=== PATIENT | male | born 1975 | race Caucasian/White ===

== ENCOUNTER 2016-05-05 21:46 | Emergency (ER) | payer OTHER, MEDICAID ==
[~2016-05-05] VITALS: Ht 180.3 cm; Wt 123.0 kg
[~2016-05-05 21:46] MED LIST: CLON1TAB PO; IBUP-232 PO; MOBI15TA PO; MORP1TAB25 PO; PERC10TA27 PO
[2016-05-05 21:50] VITALS: BP 163/87; PULSE 90; RESP 20; TEMP 98.2; O2SAT 98
[2016-05-06 03:24] VITALS: RESP 20; O2SAT 97
[2016-05-06] MEDS ORDERED: SODIUM CHLOR 0.9% 1000 ML INJ 1,000 ML IV ONE (03:30)
[2016-05-06] MEDS ORDERED: ONDANSETRON HCL 4 MG/2 ML VIAL IV PUSH ONE (03:30)
[2016-05-06] MEDS ORDERED: SODIUM CHLORIDE 0.9% FLUSH 5 ML FLUSH IVF PRN (03:30)
[2016-05-06] MEDS ORDERED: KETOROLAC TROMETHAMINE 30 MG/ML (IVP) VIAL IV PUSH ONE (03:30)
--- NOTE | 2016-05-06 03:36 | PD ---
HPI Chief Complaint: Complaint Time Seen by Provider: 03:06 Travel History International Travel<30 days: No Contact w/Intl Traveler<30days: No Traveled to known affect area: No History of Present Illness HPI 41yo M with PMH of left orchiectomy and neurolysis 01/23/16, neprholithiasis presents to the ED with c/o left flank pain and radiates to left testicle today. +Nausea. +Hematuria. +Dysuria. Pt also with chronic left testicular pain since the surgery and has been here multiple times for it. Last ED visit was 04/10/16 and had unchanged scrotal ultrasound. Pt states he has morphine at home but did not take today because he was nauseous. States the left testicular pain has not change. Pt has an appointment with Dr. Bee this morning at 9am. PFSH Past Medical History Hx Anticoagulant Therapy: No Arthritis: No Asthma: No Autoimmune Disease: No Anxiety: No Depression: No Heart Rhythm Problems: No Cancer: No Cardiovascular Problems: No High Cholesterol: No Chemotherapy: No Chest Pain: No Congestive Heart Failure: No COPD: No Cerebrovascular Accident: No Diminished Hearing: No Endocrine: No GERD: No Genitourinary: No Headaches: No Hepatitis: No Hiatal Hernia: No Hypertension: Yes ( ) Immune Disorder: Yes Inguinal Hernia: Yes Implanted Vascular Access Dvce: No Kidney Stones: Yes Musculoskeletal: Yes (CHRONIC BACK PAIN, hip problems) Neurologic: Yes (neuropathy) Psychiatric: Yes (anxiety) Reproductive: No Respiratory: Yes (sleep apnea ) Immunizations Current: Yes Migraines: No Pancreatitis: Yes Radiation Therapy: No Renal Failure: No Seizures: No Shingles: Yes Sickle Cell Disease: No Sleep Apnea: Yes (NO CPAP USE) Thyroid Disease: No Ulcer: No Past Surgical History Abdominal Surgery: Yes (HERNIA REPAIR) AICD: No Arteriovenous Shunt: No Body Medical Devices: NONE Cardiac Surgery: No Ear Surgery: No Endocrine Surgery: No Eye Surgery: No Genitourinary Surgery: No Gynecologic Surgery: No Insulin Pump: No Joint Replacement: No Neurologic Surgery: Yes (spine surgery) Oral Surgery: No Pacemaker: No Thoracic Surgery: No Other Surgery: Yes (1 testical removed ) Social History Alcohol Use: No Tobacco Use: No Substance Use: No Allergies-Medications (Allergen,Severity, Reaction): Coded Allergies: Contrast Media (Verified Allergy, Mild, Rash, 05/05/16) Reported Meds & Prescriptions Reported Meds & Active Scripts Active Mobic (Meloxicam) 15 Mg Tab 15 Mg PO DAILY Reported Morphine ER (Morphine Sulfate) 30 Mg Tab 30 Mg PO BID Percocet (Oxycodone-Acetaminophen) 10-325 mg Tab 1 Tab PO Q4H PRN Ibuprofen 600 Mg Tab 600 Mg PO QID Clonazepam 1 Mg Tab 1 Mg PO TID Review of Systems Except as stated in HPI: all other systems reviewed are Neg Physical Exam Narrative GENERAL: 41yo M in mild distress. SKIN: Warm and dry. HEAD: Atraumatic. Normocephalic. EYES: Pupils equal and round. No scleral icterus. No injection or drainage. ENT: No nasal bleeding or discharge. Mucous membranes pink and moist. NECK: Trachea midline. No JVD. CARDIOVASCULAR: Regular rate and rhythm. No murmur appreciated. RESPIRATORY: No accessory muscle use. Clear to auscultation. Breath sounds equal bilaterally. GASTROINTESTINAL: Abdomen soft, non-tender, nondistended. No rebound tenderness or guarding. BACK: No midline ttp thoracic or lumbar spine. +TTP right paraspinal lumbar spine. : No signs of infection. +TTP left testicle with light touch. MUSCULOSKELETAL: No obvious deformities. No clubbing. No cyanosis. No edema. NEUROLOGICAL: Awake and alert. No obvious cranial nerve deficits. Motor grossly within normal limits. Normal speech. PSYCHIATRIC: Appropriate mood and affect; insight and judgment normal. Data Data Last Documented VS Vital Signs Date Time Temp Pulse Resp B/P Pulse Ox O2 Delivery O2 Flow Rate FiO2 05/06/16 03:24 20 97 05/06/16 03:24 77 05/05/16 21:50 98.2 163/87 Room Air Orders Basic Metabolic Panel (Bmp) (05/06/16 03:16) Complete Blood Count With Diff (05/06/16 03:16) Prothrombin Time / Inr (Pt) (05/06/16 03:16) Act Partial Throm Time (Ptt) (05/06/16 03:16) Urinalysis - C+S If Indicated (05/06/16 03:16) Ct Abd/Pel W/O Iv Contrast (05/06/16 03:16) Iv Access Insert/Monitor (05/06/16 03:16) Ecg Monitoring (05/06/16 03:16) Oximetry (05/06/16 03:16) Sodium Chloride 0.9% Flush (Ns Flush) (05/06/16 03:30) Ketorolac Inj (Toradol Inj) (05/06/16 03:30) Ondansetron Inj (Zofran Inj) (05/06/16 03:30) Sodium Chlor 0.9% 1000 Ml Inj (Ns 1000 M (05/06/16 03:30) Morphine Inj (Morphine Inj) (05/06/16 04:30) Labs Laboratory Tests Test 05/06/16 05/06/16 03:35 04:40 White Blood Count 9.3 TH/MM3 Red Blood Count 5.27 MIL/MM3 Hemoglobin 14.4 GM/DL Hematocrit 41.9 % Mean Corpuscular Volume 79.4 FL Mean Corpuscular Hemoglobin 27.3 PG Mean Corpuscular Hemoglobin 34.4 % Concent Red Cell Distribution Width 13.7 % Platelet Count 237 TH/MM3 Mean Platelet Volume 8.1 FL Neutrophils (%) (Auto) 66.8 % Lymphocytes (%) (Auto) 24.5 % Monocytes (%) (Auto) 6.8 % Eosinophils (%) (Auto) 1.2 % Basophils (%) (Auto) 0.7 % Neutrophils # (Auto) 6.2 TH/MM3 Lymphocytes # (Auto) 2.3 TH/MM3 Monocytes # (Auto) 0.6 TH/MM3 Eosinophils # (Auto) 0.1 TH/MM3 Basophils # (Auto) 0.1 TH/MM3 CBC Comment DIFF FINAL Differential Comment Prothrombin Time 10.9 SEC Prothromb Time International 1.0 RATIO Ratio Activated Partial 27.0 SEC Thromboplast Time Sodium Level 138 MEQ/L Potassium Level 5.2 MEQ/L Chloride Level 105 MEQ/L Carbon Dioxide Level 24.0 MEQ/L Anion Gap 9 MEQ/L Blood Urea Nitrogen 13 MG/DL Creatinine 0.91 MG/DL Estimat Glomerular Filtration 92 ML/MIN Rate Random Glucose 164 MG/DL Calcium Level 9.0 MG/DL Urine Color DARK-BROWN Urine Turbidity HAZY Urine pH 5.0 Urine Specific [place] 1.023 Urine Protein NEG mg/dL Urine Glucose (UA) NEG mg/dL Urine Ketones NEG mg/dL Urine Occult Blood NEG Urine Nitrite POS Urine Bilirubin NEG Urine Urobilinogen 2.0 MG/DL Urine Leukocyte Esterase NEG Urine RBC LESS THAN 1 /hpf Urine WBC 1 /hpf Urine Squamous Epithelial <1 /hpf Cells Urine Hyaline Casts 3 /lpf Urine Mucus FEW /lpf Microscopic Urinalysis Comment CULT NOT INDICATED MDM Medical Decision Making Medical Screen Exam Complete: Yes Emergency Medical Condition: Yes Differential Diagnosis Nephrolithiasis vs. pyelonephritis vs. chronic testicular pain Narrative Course 41yo M here with left flank pain. Pt has chronic left testicular pain that has been unchanged. Labs reviewed, no leukocytosis. K: 5.2 but slightly hemolyzed. UA showed positive nitrite, will give few days of antibiotics. CTa/ p showed postsurgical change that has been unchanged. VS stable. Pt given toradol 30mg IV, zofran and NS IVF which didnt help with pain so morphine 6mg IV was given which improved pain. Pt has appointment with Dr. Bee at 9am today. Pt to follow up with him as outpatient. Diagnosis Primary Impression: UTI (urinary tract infection) Qualified Code: N39.0 - Urinary tract infection without hematuria, site unspecified Patient Instructions: General Instructions Departure Forms: Tests/Procedures Additional Instructions: Please follow up with Dr. Bee at your appointment today. Return to the ED if symptoms worsen. Med/Other Pt SpecificInfo: Prescription(s) given Scripts Ibuprofen 600 Mg [id number] Mg PO Q8HR PRN (PAIN) #20 TAB Ref 0 Prov:Pinky Diallo DO 05/06/16 Ciprofloxacin 500 Mg [id number] Mg PO BID 7 Days Ref 0 Prov:Pinky Diallo DO 05/06/16 Disposition: 01 DISCHARGE HOME Condition: Stable Pinky Diallo DO May 06, 2016 03:35
[2016-05-06 03:56] LABS: AUTOMATED NEUTROPHIL # 6.2 TH/MM3 (1.8-7.7); BASOPHIL # 0.1 TH/MM3 (0-0.2); BASOPHIL % 0.7 % (0.0-2.0); EOSINOPHIL # 0.1 TH/MM3 (0-0.4); EOSINOPHIL % 1.2 % (0.0-4.0); HEMATOCRIT 41.9 % (39.0-51.0); HEMO FLAGS DIFF FINAL; LYMPH % 24.5 % (9.0-44.0); LYMPHOCYTE # 2.3 TH/MM3 (1.0-4.8); MEAN CELL VOLUME 79.4 FL (80.0-100.0); MEAN CORPUSCULAR HEMOGLOBIN 27.3 PG (27.0-34.0); MEAN CORPUSCULAR HGB CONC 34.4 % (32.0-36.0); MONO % 6.8 % (0.0-8.0); NEUT % 66.8 % (16.0-70.0); PLATELET COUNT 237 TH/MM3 (150-450); RED BLOOD COUNT 5.27 MIL/MM3 (4.50-5.90); RED CELL DISTRIBUTION WIDTH 13.7 % (11.6-17.2); WHITE BLOOD COUNT 9.3 TH/MM3 (4.0-11.0)
[2016-05-06 04:06] LABS: PROTHROMBIN TIME - PATIENT 10.9 SEC (9.8-11.6)
[2016-05-06 04:24] LABS: POTASSIUM 5.2 MEQ/L (3.5-5.1)
[2016-05-06] MEDS ORDERED: MORPHINE SULFATE 8 MG/ML INJ IV PUSH ONE (04:30)
[2016-05-06 05:49] LABS: BLOOD, URINE NEG (NEG); GLUCOSE,URINE NEG (NEG); HYALINE CAST, URINE 3 /lpf (RARE); KETONE, URINE NEG (NEG); MUCUS URINE FEW /lpf (OCC); SQUAMOUS EPITHELIAL CELL URINE <1 /hpf (0-5)
[2016-05-06 05:51] LABS: COMMENT (UR) CULT NOT INDICATED; CULTURE IF INDICATED CULT NOT INDICATED; NITRITE,URINE POS (NEG); URINE COLOR DARK-BROWN (YELLW/STRAW)
--- NOTE | 2016-05-06 05:52 | RADRPT ---
EXAM DATE/TIME: 05/06/2016 05:03 [facility] COMPARISON: CT ABDOMEN & PELVIS W/O CONTRAST, February 04, 2016, 13:09. INDICATIONS : Left flank and groin pain. ORAL CONTRAST: No oral contrast ingested. RADIATION DOSE: 30.46 CTDIvol (mGy) MEDICAL HISTORY : Hypertension. Renal calculi. Pancreatitis. SURGICAL HISTORY : Inguinal hernia repair. Left orchiectomy ENCOUNTER: Initial ACUITY: 4 - 6 months PAIN SCALE: 10/10 LOCATION: Left flank TECHNIQUE: Volumetric scanning of the abdomen and pelvis was performed. Using automated exposure control and ad justment of the mA and/or kV according to patient size, radiation dose was kept as low as reasonably achievable to obtain optimal diagnostic quality images. FINDINGS: LOWER LUNGS: The visualized lower lungs are clear. LIVER: Decrease attenuation without lesion. There is no dilation of the biliary tree. No calcified gallsto harsh. SPLEEN: Normal size without lesion. PANCREAS: Within normal limits. KIDNEYS: Normal in size and shape. There is no mass or hydronephrosis. Punctate nonobstructing left renal terri culus measures 2-3 mm. ADRENAL GLANDS: Within normal limits. VASCULAR: There is no aortic aneurysm. BOWEL/MESENTERY: Diverticulosis of colon no diverticulitis. There is no free intraperitoneal air or fluid. ABDOMINAL WALL: Within normal limits. RETROPERITONEUM: There is no lymphadenopathy. BLADDER: No wall thickening or mass. REPRODUCTIVE: Within normal limits. INGUINAL: There is stranding in left inguinal canal. Anterior pelvis adjacent to the left inguinal canal is a small fluid collection again seen measuring 2.3 x 3.6 cm, no significant change.. MUSCULOSKELETAL: Within normal limits for patient age. CONCLUSION: 1. Stranding and postsurgical changes left inguinal canal. Small fluid collection left pelvis adjacen t to inguinal canal measures 2.3 x 2.6 cm as seen on previous study not significantly changed. This c ould be related to seroma versus less likely small abscess. 2. Diverticulosis without diverticulitis. 3. Severe fatty infiltration of the liver. 4. Punctate nonobstructing left renal calculus. Jose Lucas MD on May 06, 2016 at 5:46 Board Certified Radiologist. This report was verified electronically.
[2016-05-06] MEDS ORDERED: CIPR500T2 PO (06:40)
[2016-05-06] MEDS ORDERED: IBUP-232 PO (06:40)
== END 2016-05-06 07:06 | disposition home or self-care (01) ==
LOC: NEPC 21:46
DX: N50.812 Left testicular pain (principal); N39.0 Urinary tract infection, site not specified; I10 Essential (primary) hypertension; Z40.09 Encounter for prophylactic removal of other organ
CPT/HCPCS: 74176; 80048; 81001; 85025; 85610; 85730; 96361; 96374; 96375; 99284; J1885; J2270; J2405; J7030

== ENCOUNTER → 2016-09-10 | Outpatient (CLI) | payer OTHER, MEDICAID ==
[~2016-09-10] MED LIST changes: +CIPR500T2 PO
[2016-09-10 10:33] LABS: INDIRECT BILIRUBIN 0.4 MG/DL (0.0-0.8); TOTAL BILIRUBIN ADULT 0.5 MG/DL (0.2-1.0)
== END ==
LOC: CLAB 09:26
PROVIDERS: ATTEND Surgery Trauma Surgery
DX: F11.20 Opioid dependence, uncomplicated (principal)
CPT/HCPCS: 36415; 80076

== ENCOUNTER 2016-11-24 04:09 | Emergency (ER) | payer OTHER, MEDICAID ==
[2016-11-24 04:13] VITALS: BP 184/93; PULSE 106; RESP 20; TEMP 97.4; O2SAT 98
[2016-11-24 04:30] VITALS: RESP 19; O2SAT 98
[2016-11-24] MEDS ORDERED: SODIUM CHLOR 0.9% 1000 ML INJ 1,000 ML IV ONE (04:45)
[2016-11-24] MEDS ORDERED: ONDANSETRON HCL 4 MG/2 ML VIAL IV ONE (04:45)
[2016-11-24] MEDS ORDERED: KETOROLAC TROMETHAMINE 30 MG/ML (IVP) VIAL IV PUSH ONE (04:45)
--- NOTE | 2016-11-24 04:51 | PD ---
HPI Chief Complaint: Flank/Kidney Pain Time Seen by Provider: 04:19 Travel History International Travel<30 days: No Contact w/Intl Traveler<30days: No Traveled to known affect area: No History of Present Illness HPI The patient is a 41 year old male who presents to the [facility] emergency department with a history of right groin pain and penile pain that began at 6PM last night. The pain feels like "shards of glass". It is coming and going. He reports that it feels similar to when he has had kidney stones in the past. He reports that he passed a small kidney stone prior to arrival. He reports that he is followed by for his urologic care. He reports that he does have chronic pain in the left groin related to nerve problems from prior inguinal hernia repairs, however he has had a left triple neurectomy with neural lysis and left orchiectomy with Genny hernia repair on the left side related to this in December 2015. He does however continue to have intermittent pain and is prescribed Percocet for this reportedly by his surgeon, Dr. Bee. The patient reports having burning with urination. He denies having any urinary frequency or urgency. On review of systems, the patient denies any recent fevers, cough, congestion, neck pain, chest pain, shortness of breath, abdominal pain, vomiting, diarrhea,or neurologic symptoms. [facility] Past Medical History Narrative Medical The patient's past medical history is significant for kidney stones, chronic left groin pain. The patient has according to the record a history of diabetes , hypertension, pancreatitis, chronic hip pain, chronic back pain, sleep apnea, however he reports that all of these problems resolved after he lost weight. Hx Anticoagulant Therapy: No Arthritis: No Asthma: No Autoimmune Disease: No Anxiety: No Depression: No Heart Rhythm Problems: No Cancer: No Cardiovascular Problems: No High Cholesterol: No Chemotherapy: No Chest Pain: No Congestive Heart Failure: No COPD: No Cerebrovascular Accident: No Diminished Hearing: No Endocrine: No GERD: No Genitourinary: No Headaches: No Hepatitis: No Hiatal Hernia: No Hypertension: Yes ( ) Immune Disorder: Yes Inguinal Hernia: Yes Implanted Vascular Access Dvce: No Kidney Stones: Yes Medical other: No (PANCREATITIS) Musculoskeletal: Yes (CHRONIC BACK PAIN, hip problems) Neurologic: Yes (neuropathy) Psychiatric: Yes (anxiety) Reproductive: No Respiratory: Yes (sleep apnea ) Immunizations Current: Yes Migraines: No Pancreatitis: Yes Radiation Therapy: No Renal Failure: No Seizures: No Shingles: Yes Sickle Cell Disease: No Sleep Apnea: Yes (NO CPAP USE) Thyroid Disease: No Ulcer: No Tetanus Vaccination: < 5 Years Influenza Vaccination: Yes Past Surgical History Narrative Surgical The patient's past surgical history is significant for 5 hernia repairs, left orchiectomy, back surgery. Abdominal Surgery: Yes (HERNIA REPAIR) AICD: No Arteriovenous Shunt: No Body Medical Devices: NONE Cardiac Surgery: No Ear Surgery: No Endocrine Surgery: No Eye Surgery: No Genitourinary Surgery: No Gynecologic Surgery: No Insulin Pump: No Joint Replacement: No Neurologic Surgery: Yes (spine surgery) Oral Surgery: No Pacemaker: No Thoracic Surgery: No Other Surgery: Yes (1 testical removed ) Social History Alcohol Use: No Tobacco Use: No Substance Use: No Allergies-Medications (Allergen,Severity, Reaction): Coded Allergies: Contrast Media (Verified Allergy, Mild, Rash, 05/05/16) Reported Meds & Prescriptions Reported Meds & Active Scripts Active Ibuprofen 600 Mg Tab 600 Mg PO Q8HR PRN Ciprofloxacin (Ciprofloxacin HCl) 500 Mg Tab 500 Mg PO BID 7 Days Mobic (Meloxicam) 15 Mg Tab 15 Mg PO DAILY Reported Morphine ER (Morphine Sulfate) 30 Mg Tab 30 Mg PO BID Percocet (Oxycodone-Acetaminophen) 10-325 mg Tab 1 Tab PO Q4H PRN Ibuprofen 600 Mg Tab 600 Mg PO QID Clonazepam 1 Mg Tab 1 Mg PO TID Narrative Medication Percocet PRN Review of Systems Except as stated in HPI: all other systems reviewed are Neg General / Constitutional: No: Fever Eyes: No: Visual changes HENT: No: Headaches Cardiovascular: No: Chest Pain or Discomfort Respiratory: No: Shortness of Breath Gastrointestinal: No: Abdominal Pain Genitourinary: Positive: Dysuria Musculoskeletal: No: Pain Skin: No Rash Neurologic: No: Weakness, Focal Abnormalities, Change in Mentation, Slurred Speech, Sensory Disturbance Psychiatric: No: Depression Endocrine: No: Polydipsia Hematologic/Lymphatic: No: Easy Bruising Physical Exam Narrative General: The patient is a well-developed well-nourished male, uncomfortable appearing on arrival, walking around the room, having difficulty sitting still related to pain that radiates into the right testicle. Head and Neck exam: Head is normocephalic atraumatic. Eyes: EOMI, pupils are equal round and reactive to light. Nose: Midline septum with pink mucous membranes Mouth: Dentition unremarkable. Moist mucus membranes. Posterior oropharynx is not erythematous. No tonsillar hypertrophy. Uvula midline. Airway patent. Neck: No palpable lymphadenopathy. No nuchal rigidity. No thyromegaly. Cardiovascular: Regular rate and rhythm without murmurs, gallops, or rubs. No pulse deficit to the extremities. Lungs: Clear to auscultation bilaterally. No wheezes, rhonchi, or rales. Abdomen: Soft, without tenderness to palpation in all 4 quadrants of the abdomen. No guarding, rebound, or rigidity. Negative [place] sign. Extremities: No clubbing, cyanosis, or edema. 2+ pulses in all 4 extremities. Back: No spinous process tenderness to palpation. No costovertebral angle tenderness to palpation. Neurologic Exam: Cranial nerves 2-12 were intact on exam. Strength is 5/5 in all 4 extremities. No sensory deficits noted. No dysdiadochokinesis. Good finger to nose and Heel to gonzalez bilaterally. Skin Exam: No rash noted. Intact skin that is warm and dry. Genital exam: The patient is a circumcised male. No genital lesions or rash noted. No scrotal pain or swelling on examination.No palpable testicle masses or tenderness on palpation. No palpable hernia. Data Data Last Documented VS Vital Signs Date Time Temp Pulse Resp B/P Pulse Ox O2 Delivery O2 Flow Rate FiO2 11/24/16 04:30 19 98 Room Air 11/24/16 04:13 97.4 106 184/93 Orders Complete Blood Count With Diff (11/24/16 04:33) Comprehensive Metabolic Panel (11/24/16 04:33) C-Reactive Protein (Crp) (11/24/16 04:33) Lipase (11/24/16 04:33) Urinalysis - C+S If Indicated (11/24/16 04:33) Iv Access Insert/Monitor (11/24/16 04:33) Ecg Monitoring (11/24/16 04:33) Oximetry (11/24/16 04:33) Sodium Chlor 0.9% 1000 Ml Inj (Ns 1000 M (11/24/16 04:45) Ondansetron Inj (Zofran Inj) (11/24/16 04:45) Ketorolac Inj (Toradol Inj) (11/24/16 04:45) Ct Abd/Pel W/O Iv Contrast (11/24/16 04:51) Hydromorphone Pf Inj (Dilaudid Pf Inj) (11/24/16 05:00) Hydromorphone Pf Inj (Dilaudid Pf Inj) (11/24/16 06:00) Phenazopyridine (Pyridium) (11/24/16 06:00) Sodium Chlorid 0.9% 500 Ml Inj (Ns 500 M (11/24/16 06:00) Labs Laboratory Tests Test 11/24/16 04:30 White Blood Count 13.1 TH/MM3 Red Blood Count 5.66 MIL/MM3 Hemoglobin 16.6 GM/DL Hematocrit 46.4 % Mean Corpuscular Volume 82.0 FL Mean Corpuscular Hemoglobin 29.3 PG Mean Corpuscular Hemoglobin 35.7 % Concent Red Cell Distribution Width 13.8 % Platelet Count 249 TH/MM3 Mean Platelet Volume 8.1 FL Neutrophils (%) (Auto) 61.5 % Lymphocytes (%) (Auto) 29.5 % Monocytes (%) (Auto) 7.3 % Eosinophils (%) (Auto) 1.0 % Basophils (%) (Auto) 0.7 % Neutrophils # (Auto) 8.1 TH/MM3 Lymphocytes # (Auto) 3.9 TH/MM3 Monocytes # (Auto) 1.0 TH/MM3 Eosinophils # (Auto) 0.1 TH/MM3 Basophils # (Auto) 0.1 TH/MM3 CBC Comment DIFF FINAL Differential Comment Urine Color YELLOW Urine Turbidity CLEAR Urine pH 5.0 Urine Specific [place] 1.022 Urine Protein TRACE mg/dL Urine Glucose (UA) 70 mg/dL Urine Ketones TRACE mg/dL Urine Occult Blood LARGE Urine Nitrite NEG Urine Bilirubin NEG Urine Urobilinogen LESS THAN 2.0 MG/DL Urine Leukocyte Esterase NEG Urine RBC 154 /hpf Urine WBC 2 /hpf Urine Squamous Epithelial <1 /hpf Cells Urine Bacteria RARE /hpf Urine Mucus FEW /lpf Microscopic Urinalysis Comment CULT NOT INDICATED Sodium Level 136 MEQ/L Potassium Level 4.1 MEQ/L Chloride Level 101 MEQ/L Carbon Dioxide Level 24.3 MEQ/L Anion Gap 11 MEQ/L Blood Urea Nitrogen 15 MG/DL Creatinine 1.12 MG/DL Estimat Glomerular Filtration 73 ML/MIN Rate Random Glucose 224 MG/DL Calcium Level 9.2 MG/DL Total Bilirubin 0.5 MG/DL Aspartate Amino Transf 40 U/L (AST/SGOT) Alanine Aminotransferase 46 U/L (ALT/SGPT) Alkaline Phosphatase 90 U/L C-Reactive Protein 0.82 MG/DL Total Protein 8.4 GM/DL Albumin 3.9 GM/DL Lipase 209 U/L [facility] Medical Decision Making Medical Screen Exam Complete: Yes Emergency Medical Condition: Yes Medical Record Reviewed: Yes Differential Diagnosis Last Impressions Abdomen/Pelvis CT 11/24/16 0451 Signed Impressions: Service Date/Time: Thursday, November 24, 2016 05:23 - CONCLUSION: 1. The right kidney is unremarkable appearance with no renal calculi or obstruction. Moderate diverticulosis with no inflammatory change or obstruction. 2. Severe hepatic steatosis is again noted. 3. 2 tiny nonobstructing 1 mm left renal calculi are now noted. Declan Moreland MD Narrative Course During the course of the patients emergency department visit, the patients history, examination, and differential diagnosis were reviewed with the patient. The patient had IV access obtained and blood work sent for analysis. The patient was placed on a cardiac rehabilitation program director with oximetry and blood pressure monitoring. The patient was initially provided normal saline 1 L IV fluid bolus, Toradol 15 mg IV, Zofran 4 mg IV. The patient continued to have a significant amount of pain and was given hydromorphone 0.5 mg IV. The patients laboratory studies were reviewed and remarkable for a white count of 13.1, hemoglobin 16.6, platelets 249 with a normal differential, CMP is remarkable for a glucose of 224, AST 40, C-reactive protein 0.82, total protein 8.4, lipase 209, urinalysis shows 70 glucose, trace ketones, large occult blood , 154 rbc's, rare bacteria, culture not indicated. Radiology studies were reviewed and remarkable for a CT scan of the abdomen and pelvis that shows the right kidney is unremarkable and appearance with no renal calculi or obstruction, moderate diverticulosis with no inflammatory change or obstruction, severe hepatic steatosis again noted, 2 tiny nonobstructing 1 mm left renal calculi are now noted. The patient on reexamination reports that he did pass a small stone while in the emergency department in the bathroom, unfortunately he did not save the stone. The patient will be discharged home to follow-up with his urologist. The patient is resting comfortably and feels better, is alert and in no distress. The patients results and examination findings were discussed with the patient. The repeat examination is unremarkable and benign. The history, exam, diagnostic testing, and current condition do not suggest any significant pathology to warrant further testing, continued ED treatment, admission, or surgical evaluation at this point. The vital signs have been stable. The patient does not have uncontrollable pain, intractable vomiting, or other significant symptoms. The patient's condition is stable and appropriate for discharge. The patient will pursue further outpatient evaluation with a primary care physician or other designated or consulting physician as indicated in the discharge instructions. The patient expressed understanding and was agreeable with this plan. Diagnosis Primary Impression: Renal colic on right side Referrals: Thanh Alvarez MD 2 days Patient Instructions: General Instructions, Kidney Stones (ED) Med/Other Pt SpecificInfo: Prescription(s) given Scripts Naproxen DR (EC-Naprosyn)500 Mg Rubth756 Mg PO BID PRN (PAIN SCALE 1 TO 4) #10 TAB Ref 0 Prov:Corine Zuleta MD 11/24/16 Disposition: 01 DISCHARGE HOME Condition: Stable Corine Zuleta MD Nov 24, 2016 04:51
[2016-11-24 04:54] LABS: BACTERIA, URINE RARE /hpf; BLOOD, URINE LARGE (NEG); COMMENT (UR) CULT NOT INDICATED; CULTURE IF INDICATED CULT NOT INDICATED; GLUCOSE,URINE 70 mg/dL (NEG); KETONE, URINE TRACE mg/dL (NEG); MUCUS URINE FEW /lpf (OCC); NITRITE,URINE NEG (NEG); SQUAMOUS EPITHELIAL CELL URINE <1 /hpf (0-5); URINE COLOR YELLOW (YELLW/STRAW)
[2016-11-24 04:59] LABS: AUTOMATED NEUTROPHIL # 8.1 TH/MM3 (1.8-7.7); BASOPHIL # 0.1 TH/MM3 (0-0.2); BASOPHIL % 0.7 % (0.0-2.0); EOSINOPHIL # 0.1 TH/MM3 (0-0.4); HEMATOCRIT 46.4 % (39.0-51.0); HEMO FLAGS DIFF FINAL; LYMPH % 29.5 % (9.0-44.0); LYMPHOCYTE # 3.9 TH/MM3 (1.0-4.8); MEAN CORPUSCULAR HEMOGLOBIN 29.3 PG (27.0-34.0); MEAN CORPUSCULAR HGB CONC 35.7 % (32.0-36.0); MONO % 7.3 % (0.0-8.0); NEUT % 61.5 % (16.0-70.0); PLATELET COUNT 249 TH/MM3 (150-450); RED BLOOD COUNT 5.66 MIL/MM3 (4.50-5.90); RED CELL DISTRIBUTION WIDTH 13.8 % (11.6-17.2); WHITE BLOOD COUNT 13.1 TH/MM3 (4.0-11.0)
[2016-11-24] MEDS ORDERED: HYDROmorphone HCL PF 1 MG/ML VIAL IV PUSH ONE ×2 (05:00→06:00)
[2016-11-24 05:08] LABS: ALKALINE PHOSPHATASE 90 U/L (45-117); TOTAL BILIRUBIN ADULT 0.5 MG/DL (0.2-1.0)
[2016-11-24 05:31] LABS: ALT (GPT) 46 U/L (12-78); ANION GAP 11 MEQ/L (5-15); AST (GOT) 40 U/L (15-37); BICARBONATE 24.3 MEQ/L (21.0-32.0); BLOOD UREA NITROGEN 15 MG/DL (7-18); CHLORIDE 101 MEQ/L (98-107); GLOMERULAR FILTRATION RATE 73 ML/MIN (>89); SODIUM (NA) 136 MEQ/L (136-145)
[2016-11-24 05:34] LABS: POTASSIUM 4.1 MEQ/L (3.5-5.1)
--- NOTE | 2016-11-24 05:47 | RADRPT ---
EXAM DATE/TIME: 11/24/2016 05:23 [facility] COMPARISON: CT ABDOMEN & PELVIS W/O CONTRAST, May 06, 2016, 5:03. INDICATIONS : Right flank pain into groin. Passed multiple calculi today. ORAL CONTRAST: No oral contrast ingested. RADIATION DOSE: 29.52 CTDIvol (mGy) ; Patient body habitus MEDICAL HISTORY : Hypertension. Pancreatitis. Hernia, inguinal.Renal calculi. SURGICAL HISTORY : None. ENCOUNTER: Initial ACUITY: 1 day PAIN SCALE: 6/10 LOCATION: Right flank TECHNIQUE: Volumetric scanning of the abdomen and pelvis was performed. Using automated exposure control and ad justment of the mA and/or kV according to patient size, radiation dose was kept as low as reasonably achievable to obtain optimal diagnostic quality images. DICOM format image data is available electro nically for review and comparison. FINDINGS: LOWER LUNGS: The visualized lower lungs are clear. LIVER: Homogeneous density without lesion. There is no dilation of the biliary tree. No calcified gallston es. There is severe hepatic steatosis again noted. The gallbladder remains unremarkable. SPLEEN: Normal size without lesion. PANCREAS: Within normal limits. KIDNEYS: Normal in size and shape. There is no mass or hydronephrosis. There are 2 small nonobstructing 1 mm left renal calculi not identified. ADRENAL GLANDS: Within normal limits. VASCULAR: There is no aortic aneurysm. BOWEL/MESENTERY: Scattered diverticuli are again noted throughout the colon. There is a normal appendix. The stomach, small bowel, and colon demonstrate no acute abnormality. There is no free intraperitoneal air or flu id. ABDOMINAL WALL: Within normal limits. RETROPERITONEUM: There is no lymphadenopathy. BLADDER: No wall thickening or mass. REPRODUCTIVE: Within normal limits. INGUINAL: There is no adenopathy. Fat containing bilateral inguinal hernias are present. MUSCULOSKELETAL: Within normal limits for patient age. CONCLUSION: 1. The right kidney is unremarkable appearance with no renal calculi or obstruction. Moderate diverti culosis with no inflammatory change or obstruction. 2. Severe hepatic steatosis is again noted. 3. 2 tiny nonobstructing 1 mm left renal calculi are now noted. Declan Moreland MD on November 24, 2016 at 5:41 Board Certified Radiologist. This report was verified electronically.
[2016-11-24] MEDS ORDERED: PHENAZOPYRIDINE HCL 200 MG TAB PO ONE (06:00)
[2016-11-24] MEDS ORDERED: SODIUM CHLORID 0.9% 500 ML INJ 500 ML IV ONE (06:00)
[2016-11-24] MEDS ORDERED: EC-N500T PO (06:34)
== END 2016-11-24 07:18 | disposition home or self-care (01) ==
LOC: NEPC 04:09
DX: N23 Unspecified renal colic (principal)
CPT/HCPCS: 74176; 80053; 81001; 83690; 85025; 86140; 96361; 96374; 96375; 96376; 99285; J1170; J1885; J2405; J7030; J7040

== ENCOUNTER 2017-01-25 14:37 | Emergency (ER) | payer OTHER, MEDICAID ==
[~2017-01-25 14:37] MED LIST changes: +EC-N500T PO
[2017-01-25 14:39] VITALS: BP 179/98; PULSE 85; RESP 20; TEMP 97.8; O2SAT 98
--- NOTE | 2017-01-25 14:46 | PD ---
Physical Exam Time Seen by Provider: 14:44 Narrative Pt presents with lower abdominal pain radiating to testicles; acute onset last night. Fever and chills. Nausea and vomiting. No BMs. Normal voids. History kidney stones. History of inguinal hernia. No other significant medical history. Data Data Last Documented VS Vital Signs Date Time Temp Pulse Resp B/P (MAP) Pulse Ox O2 Delivery O2 Flow Rate FiO2 01/25/17 19:07 01/25/17 16:16 98.2 93 18 98 Room Air Orders Orders Basic Metabolic Panel (Bmp) (01/25/17 14:47) Complete Blood Count With Diff (01/25/17 14:47) Prothrombin Time / Inr (Pt) (01/25/17 14:47) Act Partial Throm Time (Ptt) (01/25/17 14:47) Urinalysis - C+S If Indicated (01/25/17 14:47) Ct Abd/Pel W/O Iv Contrast (01/25/17 14:47) Us Testicles W Doppler (01/25/17 ) Iv Access Insert/Monitor (01/25/17 16:11) Morphine Inj (Morphine Inj) (01/25/17 16:15) Ondansetron Inj (Zofran Inj) (01/25/17 16:15) Ketorolac Inj (Toradol Inj) (01/25/17 16:30) Sodium Chlor 0.9% 1000 Ml Inj (Ns 1000 M (01/25/17 16:30) Morphine Inj (Morphine Inj) (01/25/17 19:00) Labs Laboratory Tests Test 01/25/17 15:45 01/25/17 16:05 White Blood Count 9.2 TH/MM3 Red Blood Count 5.56 MIL/MM3 Hemoglobin 16.3 GM/DL Hematocrit 45.8 % Mean Corpuscular Volume 82.3 FL Mean Corpuscular Hemoglobin 29.3 PG Mean Corpuscular Hemoglobin Concent 35.6 % Red Cell Distribution Width 13.5 % Platelet Count 217 TH/MM3 Mean Platelet Volume 7.8 FL Neutrophils (%) (Auto) 64.0 % Lymphocytes (%) (Auto) 26.8 % Monocytes (%) (Auto) 7.5 % Eosinophils (%) (Auto) 1.0 % Basophils (%) (Auto) 0.7 % Neutrophils # (Auto) 5.9 TH/MM3 Lymphocytes # (Auto) 2.5 TH/MM3 Monocytes # (Auto) 0.7 TH/MM3 Eosinophils # (Auto) 0.1 TH/MM3 Basophils # (Auto) 0.1 TH/MM3 CBC Comment DIFF FINAL Differential Comment Prothrombin Time 10.7 SEC Prothromb Time International Ratio 1.0 RATIO Activated Partial Thromboplast Time 27.3 SEC Blood Urea Nitrogen 13 MG/DL Creatinine 0.94 MG/DL Random Glucose 283 MG/DL Calcium Level 8.7 MG/DL Sodium Level 133 MEQ/L Potassium Level 4.0 MEQ/L Chloride Level 101 MEQ/L Carbon Dioxide Level 26.1 MEQ/L Anion Gap 6 MEQ/L Estimat Glomerular Filtration Rate 89 ML/MIN Urine Color YELLOW Urine Turbidity CLEAR Urine pH 5.0 Urine Specific [place] 1.028 Urine Protein 30 mg/dL Urine Glucose (UA) 1000 mg/dL Urine Ketones TRACE mg/dL Urine Occult Blood TRACE Urine Nitrite NEG Urine Bilirubin NEG Urine Urobilinogen LESS THAN 2.0 MG/DL Urine Leukocyte Esterase NEG Urine RBC 1 /hpf Urine WBC LESS THAN 1 /hpf Urine Mucus FEW /lpf Microscopic Urinalysis Comment CULT NOT INDICATED MDM Medical Record Reviewed: Yes Supervised Visit with JEFFREY: No Scripts Ondansetron Odt (Ondansetron Odt) 4 Mg Tab 4 MG SL Q6HR Y for Nausea/Vomiting, #16 TAB 0 Refills Prov: Ximena Faust 01/25/17 Condition: Stable Parul Morley Jan 25, 2017 14:46
[2017-01-25] MEDS ORDERED: ONDANSETRON HCL 4 MG/2 ML VIAL IV PUSH ONE (16:15)
[2017-01-25] MEDS ORDERED: MORPHINE SULFATE 4 MG/ML INJ IV PUSH ONE ×2 (16:15→19:00)
[2017-01-25 16:16] VITALS: BP 164/91; PULSE 93; RESP 18; TEMP 98.2; O2SAT 98
--- NOTE | 2017-01-25 16:19 | PD ---
HPI Chief Complaint: Abdominal Pain Time Seen by Provider: 16:06 Travel History International Travel<30 days: No Contact w/Intl Traveler<30days: No History of Present Illness HPI 41-year-old male presents to the emergency department for evaluation of groin pain, right testicular pain that started this morning. The patient reports history of chronic pain in the left groin from prior inguinal hernia repairs. He had left triple neurectomy with neurolysis, Genny hernia repair, left orchiectomy on 01/23/16. He cannot remember the name of his neurologist, but according to records, it is Dr. velásquez. The patient does state he has chronic pain left groin, but states is worse and is more in the right groin. He also has history of nephrolithiasis. He reports associated chills, but no documented fevers. No chest pressure as well. He reports vomiting, but no constipation or diarrhea. He reports no other surgeries. Patient denies having any chronic medical problems or taking prescribed medications other than the Percocet which is prescribed to him by Dr. Bee. He states he took a dose of his Percocet this morning without improvement. PFSH Past Medical History Hx Anticoagulant Therapy: No Arthritis: No Asthma: No Autoimmune Disease: No Anxiety: No Depression: No Heart Rhythm Problems: No Cancer: No Cardiovascular Problems: No High Cholesterol: No Chemotherapy: No Chest Pain: No Congestive Heart Failure: No COPD: No Cerebrovascular Accident: No Diminished Hearing: No Endocrine: No GERD: No Genitourinary: No Headaches: No Hepatitis: No Hiatal Hernia: No Hypertension: Yes ( ) Immune Disorder: Yes Inguinal Hernia: Yes Implanted Vascular Access Dvce: No Kidney Stones: Yes Musculoskeletal: Yes (CHRONIC BACK PAIN, hip problems) Neurologic: Yes (neuropathy) Psychiatric: Yes (anxiety) Reproductive: No Respiratory: Yes (sleep apnea ) Immunizations Current: Yes Migraines: No Pancreatitis: Yes Radiation Therapy: No Renal Failure: No Seizures: No Shingles: Yes Sickle Cell Disease: No Sleep Apnea: Yes (NO CPAP USE) Thyroid Disease: No Ulcer: No Past Surgical History Abdominal Surgery: Yes (HERNIA REPAIR) AICD: No Arteriovenous Shunt: No Body Medical Devices: NONE Cardiac Surgery: No Ear Surgery: No Endocrine Surgery: No Eye Surgery: No Genitourinary Surgery: No Gynecologic Surgery: No Insulin Pump: No Joint Replacement: No Neurologic Surgery: Yes (spine surgery) Oral Surgery: No Pacemaker: No Thoracic Surgery: No Other Surgery: Yes (1 testical removed ) Social History Alcohol Use: No Tobacco Use: No Substance Use: No Allergies-Medications (Allergen,Severity, Reaction): Coded Allergies: diatrizoate meglumine (Unverified Allergy, Mild, Rash, 12/08/16) gadobenic acid (Unverified Allergy, Mild, Rash, 12/08/16) gadodiamide (Unverified Allergy, Mild, Rash, 12/08/16) gadoteridol (Unverified Allergy, Mild, Rash, 12/08/16) iodixanol (Unverified Allergy, Mild, Rash, 12/08/16) iohexol (Unverified Allergy, Mild, Rash, 12/08/16) Reported Meds & Prescriptions Reported Meds & Active Scripts Active EC-Naprosyn (Naproxen) 500 Mg Tabdr 500 Mg PO BID PRN Ibuprofen 600 Mg Tab 600 Mg PO Q8HR PRN Ciprofloxacin (Ciprofloxacin HCl) 500 Mg Tab 500 Mg PO BID 7 Days Mobic (Meloxicam) 15 Mg Tab 15 Mg PO DAILY Reported Morphine ER (Morphine Sulfate) 30 Mg Tab 30 Mg PO BID Percocet (Oxycodone-Acetaminophen) 10-325 mg Tab 1 Tab PO Q4H PRN Ibuprofen 600 Mg Tab 600 Mg PO QID Clonazepam 1 Mg Tab 1 Mg PO TID Review of Systems Except as stated in HPI: all other systems reviewed are Neg Physical Exam Narrative GENERAL: Well-nourished, well-developed male patient, moaning in pain. SKIN: Focused skin assessment warm/dry. HEAD: Normocephalic. Atraumatic. EYES: No scleral icterus. No injection or drainage. NECK: Supple, trachea midline. No JVD or lymphadenopathy. CARDIOVASCULAR: Regular rate and rhythm without murmurs, gallops, or rubs. RESPIRATORY: Breath sounds equal bilaterally. No accessory muscle use. Lungs sounds are clear to auscultation. GASTROINTESTINAL: Abdomen soft and nondistended. He has tenderness from the umbilicus down to the groin. MUSCULOSKELETAL: No cyanosis, or edema. BACK: Nontender without obvious deformity. No CVA tenderness. GENITOURINARY: Circumcised. Testes descended bilaterally without evidence of rotation. No lesions or erythema. No urethral discharge. Patient has tenderness to palpation warm mild palpation to bilateral scrotum. Unable to do a full evaluation. Data Data Last Documented VS Vital Signs Date Time Temp Pulse Resp B/P (MAP) Pulse Ox O2 Delivery O2 Flow Rate FiO2 01/25/17 16:16 98.2 93 18 164/91 (115) 98 Room Air Orders Orders Basic Metabolic Panel (Bmp) (01/25/17 14:47) Complete Blood Count With Diff (01/25/17 14:47) Prothrombin Time / Inr (Pt) (01/25/17 14:47) Act Partial Throm Time (Ptt) (01/25/17 14:47) Urinalysis - C+S If Indicated (01/25/17 14:47) Ct Abd/Pel W/O Iv Contrast (01/25/17 14:47) Us Testicles W Doppler (01/25/17 ) Iv Access Insert/Monitor (01/25/17 16:11) Morphine Inj (Morphine Inj) (01/25/17 16:15) Ondansetron Inj (Zofran Inj) (01/25/17 16:15) Ketorolac Inj (Toradol Inj) (01/25/17 16:30) Sodium Chlor 0.9% 1000 Ml Inj (Ns 1000 M (01/25/17 16:30) Morphine Inj (Morphine Inj) (01/25/17 19:00) Labs Laboratory Tests Test 01/25/17 15:45 01/25/17 16:05 White Blood Count 9.2 TH/MM3 Red Blood Count 5.56 MIL/MM3 Hemoglobin 16.3 GM/DL Hematocrit 45.8 % Mean Corpuscular Volume 82.3 FL Mean Corpuscular Hemoglobin 29.3 PG Mean Corpuscular Hemoglobin Concent 35.6 % Red Cell Distribution Width 13.5 % Platelet Count 217 TH/MM3 Mean Platelet Volume 7.8 FL Neutrophils (%) (Auto) 64.0 % Lymphocytes (%) (Auto) 26.8 % Monocytes (%) (Auto) 7.5 % Eosinophils (%) (Auto) 1.0 % Basophils (%) (Auto) 0.7 % Neutrophils # (Auto) 5.9 TH/MM3 Lymphocytes # (Auto) 2.5 TH/MM3 Monocytes # (Auto) 0.7 TH/MM3 Eosinophils # (Auto) 0.1 TH/MM3 Basophils # (Auto) 0.1 TH/MM3 CBC Comment DIFF FINAL Differential Comment Prothrombin Time 10.7 SEC Prothromb Time International Ratio 1.0 RATIO Activated Partial Thromboplast Time 27.3 SEC Blood Urea Nitrogen 13 MG/DL Creatinine 0.94 MG/DL Random Glucose 283 MG/DL Calcium Level 8.7 MG/DL Sodium Level 133 MEQ/L Potassium Level 4.0 MEQ/L Chloride Level 101 MEQ/L Carbon Dioxide Level 26.1 MEQ/L Anion Gap 6 MEQ/L Estimat Glomerular Filtration Rate 89 ML/MIN Urine Color YELLOW Urine Turbidity CLEAR Urine pH 5.0 Urine Specific [place] 1.028 Urine Protein 30 mg/dL Urine Glucose (UA) 1000 mg/dL Urine Ketones TRACE mg/dL Urine Occult Blood TRACE Urine Nitrite NEG Urine Bilirubin NEG Urine Urobilinogen LESS THAN 2.0 MG/DL Urine Leukocyte Esterase NEG Urine RBC 1 /hpf Urine WBC LESS THAN 1 /hpf Urine Mucus FEW /lpf Microscopic Urinalysis Comment CULT NOT INDICATED MDM Medical Decision Making Medical Screen Exam Complete: Yes Emergency Medical Condition: Yes Medical Record Reviewed: Yes Interpretation(s) ct abdomen/pelvis - 1. No acute abnormality to correspond to patient's abdominal pain. Normal appendix. 2. Stable ancillary findings including hepatic steatosis with stable epidural splenomegaly, stable 1-2 mm nonobstructing calyceal calculi in the left kidney, sigmoid diverticulosis, small periumbilical hernia, and bilateral fat containing inguinal hernias. US testicles - CONCLUSION: 1. Stable testicular ultrasound examination. 2. Absent left testicle with interval resolution of complex left scrotal fluid collection. 3. Stable right testicle and epididymis with normal vascularity, as above. 4. Small right-sided hydrocele. Differential Diagnosis Renal calculi versus hydronephrosis versus UTI versus testicular torsion versus chronic pain Narrative Course 41-year-old male presents to the emergency department for evaluation of groin pain, right testicle her pain that started this morning. Exam is limited due to patient's extreme pain. IV access is obtained. CBC, BMP, PTT, PT/INR, UA are ordered and pending. Ultrasound of testicles, CT abdomen/pelvis without contrast are ordered and pending. Patient is given normal saline 1 L IV bolus, Toradol 30 mg IV, morphine 4 mg IV, Zofran 4 mg IV. CBC is unremarkable. BMP shows hyperglycemia at 283. Coags are unremarkable. UA is negative for acute infection. Testicle US show stable testicular ultrasound examination; absent left testicle with interval resolution of complex left scrotal fluid collection; stable right testicle and epididymis with normal vascularity, as above; small right-sided hydrocele. CT abdomen/ pelvis shows 1. No acute abnormality to correspond to patient's abdominal pain. Normal appendix; 2. Stable ancillary findings including hepatic steatosis with stable epidural splenomegaly, stable 1-2 mm nonobstructing calyceal calculi in the left kidney, sigmoid diverticulosis, small periumbilical hernia, and bilateral fat containing inguinal hernias. Discussed all findings my attending physician, Dr. Diallo. There is no emergent finding and laboratory findings as well imaging is reassuring. This appears to be an exacerbation of his chronic pain. Dr. Diallo spoke to the patient and examined him as well. He is given 1 more dose of morphine. He has Percocet at home to take for pain. He is asking for something for nausea. I'll give her prescription for Zofran. He is instructed to follow-up with his urologist and Dr. Bee. He verbalizes agreement and understanding. The patient was discharged in stable condition with instructions, including return instructions and follow up instructions. Diagnosis Primary Impression: Scrotum pain Additional Impression: Abdominal pain Qualified Codes: R10.9 - Unspecified abdominal pain Referrals: Declan Bee MD Urologist Patient Instructions: Abdominal Pain (ED), General Instructions Additional Instructions: Continue your Percocet as prescribed as needed for pain. Take Zofran as directed as needed for nausea/vomiting. Follow-up with Dr. Bee and your urologist. Return to the emergency department for any acute worsening of symptoms. Med/Other Pt SpecificInfo: Prescription(s) given Scripts Ondansetron Odt (Ondansetron Odt) 4 Mg Tab 4 MG SL Q6HR Y for Nausea/Vomiting, #16 TAB 0 Refills Prov: Sajan Faustamee SINGH 01/25/17 Disposition: 01 DISCHARGE HOME Condition: Stable Ximena Faust Jan 25, 2017 16:19
[2017-01-25] MEDS ORDERED: KETOROLAC TROMETHAMINE 30 MG/ML (IVP) VIAL IV PUSH ONE (16:30)
[2017-01-25] MEDS ORDERED: SODIUM CHLOR 0.9% 1000 ML INJ 1,000 ML IV ONE (16:30)
[2017-01-25 16:38] LABS: AUTOMATED NEUTROPHIL # 5.9 TH/MM3 (1.8-7.7); BASOPHIL # 0.1 TH/MM3 (0-0.2); BASOPHIL % 0.7 % (0.0-2.0); EOSINOPHIL # 0.1 TH/MM3 (0-0.4); HEMATOCRIT 45.8 % (39.0-51.0); HEMO FLAGS DIFF FINAL; LYMPH % 26.8 % (9.0-44.0); LYMPHOCYTE # 2.5 TH/MM3 (1.0-4.8); MEAN CELL VOLUME 82.3 FL (80.0-100.0); MEAN CORPUSCULAR HEMOGLOBIN 29.3 PG (27.0-34.0); MEAN CORPUSCULAR HGB CONC 35.6 % (32.0-36.0); MONO % 7.5 % (0.0-8.0); PLATELET COUNT 217 TH/MM3 (150-450); RED BLOOD COUNT 5.56 MIL/MM3 (4.50-5.90); RED CELL DISTRIBUTION WIDTH 13.5 % (11.6-17.2); WHITE BLOOD COUNT 9.2 TH/MM3 (4.0-11.0)
[2017-01-25 16:48] LABS: APTT (PATIENT) 27.3 SEC (24.3-30.1); PROTHROMBIN TIME - PATIENT 10.7 SEC (9.8-11.6)
[2017-01-25 17:00] LABS: BLOOD, URINE TRACE (NEG); COMMENT (UR) CULT NOT INDICATED; CULTURE IF INDICATED CULT NOT INDICATED; GLUCOSE,URINE 1000 mg/dL (NEG); KETONE, URINE TRACE mg/dL (NEG); MUCUS URINE FEW /lpf (OCC); NITRITE,URINE NEG (NEG); URINE COLOR YELLOW (YELLW/STRAW)
--- NOTE | 2017-01-25 17:14 | RADRPT ---
EXAM DATE/TIME: 01/25/2017 16:27 [facility] COMPARISON: US TESTICLE W/DOPPLER, April 10, 2016, 7:50. INDICATIONS : Testicle pain. MEDICAL HISTORY : Hypertension. Neuropathy. Kidney stones. Pancreatitis. SURGICAL HISTORY : Spinal surgery. Hernia repair. Left orchiectomy. ENCOUNTER: [facility] ACUITY: 1 day PAIN SCORE: 8/10 LOCATION: Bilateral testicles. MEASUREMENTS: RIGHT TESTICLE: 4.1 x 3.4 x 2.9cm Left testicle: Surgically absent. FINDINGS: RIGHT TESTICLE: Redemonstration of a stable hyperechoic nodule in the right testis measuring 4 mm unchanged from prio r exam. Right testicle otherwise demonstrates homogeneous echotexture with normal blood flow. There i s a small right-sided hydrocele. Redemonstration of heterogeneous enlargement of the right epididymis containing a dominant 6 mm cyst. No significant vascularity of the epididymis. LEFT TESTICLE: Surgically absent. No significant mass or fluid collection in the left scrotum. SCROTUM: Within normal limits. CONCLUSION: 1. Stable testicular ultrasound examination. 2. Absent left testicle with interval resolution of complex left scrotal fluid collection. 3. Stable right testicle and epididymis with normal vascularity, as above. 4. Small right-sided hydrocele. Pan Toussaint MD on January 25, 2017 at 17:07 Board Certified Radiologist. This report was verified electronically.
[2017-01-25 17:29] LABS: BICARBONATE 26.1 MEQ/L (21.0-32.0)
--- NOTE | 2017-01-25 17:31 | RADRPT ---
EXAM DATE/TIME: 01/25/2017 17:17 [facility] COMPARISON: CT ABDOMEN & PELVIS W/O CONTRAST, November 24, 2016, 5:23. INDICATIONS : Patient complains of lower abdomen pain. ORAL CONTRAST: No oral contrast ingested. RADIATION DOSE: 8.56 CTDIvol (mGy) MEDICAL HISTORY : None SURGICAL HISTORY : None. ENCOUNTER: Initial ACUITY: 1 day PAIN SCALE: 10/10 LOCATION: lower quadrant TECHNIQUE: Volumetric scanning of the abdomen and pelvis was performed. Using automated exposure control and ad justment of the mA and/or kV according to patient size, radiation dose was kept as low as reasonably achievable to obtain optimal diagnostic quality images. DICOM format image data is available electro nically for review and comparison. FINDINGS: LOWER LUNGS: The visualized lower lungs are clear. LIVER: Liver is enlarged with prominent decreased attenuation. No evidence for focal mass or intrahepatic du ctal dilatation. Gallbladder is unremarkable by CT. SPLEEN: Spleen is enlarged measuring up to 14.7 cm. PANCREAS: Within normal limits. KIDNEYS: Stable on 1-2 mm calyceal calculi in the anterior mid and inferior poles of the left kidney. Kidneys otherwise demonstrate symmetrical size without evidence for hydronephrosis or contour deforming abnor mality. ADRENAL GLANDS: Within normal limits. VASCULAR: There is no aortic aneurysm. BOWEL/MESENTERY: The stomach, small bowel, and colon demonstrate no acute abnormality. Mild sigmoid diverticulosis wi thout significant inflammatory change to suggest diverticulitis. Appendix is visualized and normal. T here is no free intraperitoneal air or fluid. ABDOMINAL WALL: Small periumbilical hernia containing portion of the normal-appearing small bowel. RETROPERITONEUM: There is no lymphadenopathy. BLADDER: Nearly completely decompressed and otherwise unremarkable. REPRODUCTIVE: Within normal limits. INGUINAL: Fat containing bilaterally were hernias. MUSCULOSKELETAL: Within normal limits for patient age. CONCLUSION: 1. No acute abnormality to correspond to patient's abdominal pain. Normal appendix. 2. Stable ancillary findings including hepatic steatosis with stable epidural splenomegaly, stable 1- 2 mm nonobstructing calyceal calculi in the left kidney, sigmoid diverticulosis, small periumbilical hernia, and bilateral fat containing inguinal hernias. Pan Toussaint MD on January 25, 2017 at 17:24 Board Certified Radiologist. This report was verified electronically.
--- NOTE | 2017-01-25 18:56 | PD ---
Physical Exam Narrative I, Dr. Diallo, have reviewed the advance practice practitioner's documentation and am in agreement, met with the patient face to face, made the diagnosis, and the medical decision making was done by me. *My assessment and Findings: Obstruction vs. colitis vs. testicular torsion 41yo M with chronic abdominal pain here with lower abdominal pain and testicular pain. Labs reviewed, no leukocytosis. Glucose 283. No increased anion gap or CO2. UA negative. CTa/p showed no acute abnormality. US scrotum showed left testicle is surgically absent and right testicle normal. Pt given toradol and morphine and still complains of pain. Pt has chronic pain and is on percocet at home. I informed him that I will give him one more dose of pain medication but he needs to follow up with PMD and possible pain management as outpatient. Pt is nontoxic appearing, sitting up and agrees with plan. Return precautions given. Data Data Last Documented VS Vital Signs Date Time Temp Pulse Resp B/P (MAP) Pulse Ox O2 Delivery O2 Flow Rate FiO2 01/25/17 16:16 98.2 93 18 164/91 (115) 98 Room Air Orders Orders Basic Metabolic Panel (Bmp) (01/25/17 14:47) Complete Blood Count With Diff (01/25/17 14:47) Prothrombin Time / Inr (Pt) (01/25/17 14:47) Act Partial Throm Time (Ptt) (01/25/17 14:47) Urinalysis - C+S If Indicated (01/25/17 14:47) Ct Abd/Pel W/O Iv Contrast (01/25/17 14:47) Us Testicles W Doppler (01/25/17 ) Iv Access Insert/Monitor (01/25/17 16:11) Morphine Inj (Morphine Inj) (01/25/17 16:15) Ondansetron Inj (Zofran Inj) (01/25/17 16:15) Ketorolac Inj (Toradol Inj) (01/25/17 16:30) Sodium Chlor 0.9% 1000 Ml Inj (Ns 1000 M (01/25/17 16:30) Morphine Inj (Morphine Inj) (01/25/17 19:00) Labs Laboratory Tests Test 01/25/17 15:45 01/25/17 16:05 White Blood Count 9.2 TH/MM3 Red Blood Count 5.56 MIL/MM3 Hemoglobin 16.3 GM/DL Hematocrit 45.8 % Mean Corpuscular Volume 82.3 FL Mean Corpuscular Hemoglobin 29.3 PG Mean Corpuscular Hemoglobin Concent 35.6 % Red Cell Distribution Width 13.5 % Platelet Count 217 TH/MM3 Mean Platelet Volume 7.8 FL Neutrophils (%) (Auto) 64.0 % Lymphocytes (%) (Auto) 26.8 % Monocytes (%) (Auto) 7.5 % Eosinophils (%) (Auto) 1.0 % Basophils (%) (Auto) 0.7 % Neutrophils # (Auto) 5.9 TH/MM3 Lymphocytes # (Auto) 2.5 TH/MM3 Monocytes # (Auto) 0.7 TH/MM3 Eosinophils # (Auto) 0.1 TH/MM3 Basophils # (Auto) 0.1 TH/MM3 CBC Comment DIFF FINAL Differential Comment Prothrombin Time 10.7 SEC Prothromb Time International Ratio 1.0 RATIO Activated Partial Thromboplast Time 27.3 SEC Blood Urea Nitrogen 13 MG/DL Creatinine 0.94 MG/DL Random Glucose 283 MG/DL Calcium Level 8.7 MG/DL Sodium Level 133 MEQ/L Potassium Level 4.0 MEQ/L Chloride Level 101 MEQ/L Carbon Dioxide Level 26.1 MEQ/L Anion Gap 6 MEQ/L Estimat Glomerular Filtration Rate 89 ML/MIN Urine Color YELLOW Urine Turbidity CLEAR Urine pH 5.0 Urine Specific [place] 1.028 Urine Protein 30 mg/dL Urine Glucose (UA) 1000 mg/dL Urine Ketones TRACE mg/dL Urine Occult Blood TRACE Urine Nitrite NEG Urine Bilirubin NEG Urine Urobilinogen LESS THAN 2.0 MG/DL Urine Leukocyte Esterase NEG Urine RBC 1 /hpf Urine WBC LESS THAN 1 /hpf Urine Mucus FEW /lpf Microscopic Urinalysis Comment CULT NOT INDICATED [facility] Supervised Visit with JEFFREY: Yes Diagnosis Primary Impression: Abdominal pain Qualified Codes: R10.9 - Unspecified abdominal pain Pinky Diallo DO Jan 25, 2017 18:56
[2017-01-25] MEDS ORDERED: ONDA4TAB7 SL (19:08)
== END 2017-01-25 19:25 | disposition home or self-care (01) ==
LOC: NEPC 14:37
DX: N50.812 Left testicular pain (principal); N43.3 Hydrocele, unspecified; K76.0 Fatty (change of) liver, not elsewhere classified; R16.1 Splenomegaly, not elsewhere classified; N20.0 Calculus of kidney; K57.30 Diverticulosis of large intestine without perforation or abscess without bleeding; K42.9 Umbilical hernia without obstruction or gangrene; K40.90 Unilateral inguinal hernia, without obstruction or gangrene, not specified as recurrent; G89.29 Other chronic pain
CPT/HCPCS: 74176; 76870; 80048; 81001; 85025; 85610; 85730; 93975; 96361; 96374; 96375; 96376; 99285; J1885; J2270; J2405; J7030

== ENCOUNTER 2017-02-20 20:07 | Inpatient (IN) | payer MEDICAID, OTHER ==
[~2017-02-20] VITALS: Ht 180.3 cm; Wt 121.1 kg
[~2017-02-20 20:07] MED LIST changes: +ONDA4TAB7 SL
[2017-02-20 20:09] VITALS: BP 191/95; PULSE 102; RESP 16; TEMP 98.2; O2SAT 97
[2017-02-20] MEDS ORDERED: SODIUM CHLOR 0.9% 1000 ML INJ 1,000 ML IV SCH (21:06)
--- NOTE | 2017-02-20 21:12 | PD ---
HPI Chief Complaint: Abdominal Pain Time Seen by Provider: 20:58 Travel History International Travel<30 days: No Contact w/Intl Traveler<30days: No Traveled to known affect area: No History of Present Illness HPI 41 YO M with PMH of pancreatitis presents to the ED for evaluation approximately 7 hours history of sharp, 10/10 epigastric pain with associated nausea and vomiting. Patient endorses chills but has not measured a fever at home. He estimates 7 or 8 episodes of N/V and be vomiting today. He endorses loose stools for the last few days. He denies anorexia, melena, hematochezia, BRBPR, dysuria, back pain, chest pain, palpitations, shortness of breath. He denies chronic alcohol problems and takes no daily medications. He denies chronic alcohol use. He endorses history of bilateral laparoscopic inguinal hernia repair. PCP Dr. Rio Sky. [facility] Past Medical History Hx Anticoagulant Therapy: No Arthritis: No Asthma: No Autoimmune Disease: No Anxiety: No Depression: No Heart Rhythm Problems: No Cancer: No Cardiovascular Problems: No High Cholesterol: No Chemotherapy: No Chest Pain: No Congestive Heart Failure: No COPD: No Cerebrovascular Accident: No Diminished Hearing: No Endocrine: No GERD: No Genitourinary: No Headaches: No Hepatitis: No Hiatal Hernia: No Hypertension: Yes ( ) Immune Disorder: Yes Inguinal Hernia: Yes Implanted Vascular Access Dvce: No Kidney Stones: Yes Musculoskeletal: Yes (CHRONIC BACK PAIN, hip problems) Neurologic: Yes (neuropathy) Psychiatric: Yes (anxiety) Reproductive: No Respiratory: Yes (sleep apnea ) Immunizations Current: Yes Migraines: No Pancreatitis: Yes Radiation Therapy: No Renal Failure: No Seizures: No Shingles: Yes Sickle Cell Disease: No Sleep Apnea: Yes (NO CPAP USE) Thyroid Disease: No Ulcer: No Past Surgical History Abdominal Surgery: Yes (HERNIA REPAIR) AICD: No Arteriovenous Shunt: No Body Medical Devices: NONE Cardiac Surgery: No Ear Surgery: No Endocrine Surgery: No Eye Surgery: No Genitourinary Surgery: No Gynecologic Surgery: No Insulin Pump: No Joint Replacement: No Neurologic Surgery: Yes (spine surgery) Oral Surgery: No Pacemaker: No Thoracic Surgery: No Other Surgery: Yes (1 testical removed ) Social History Alcohol Use: No Tobacco Use: No Substance Use: No Allergies-Medications (Allergen,Severity, Reaction): Coded Allergies: diatrizoate meglumine (Verified Allergy, Mild, Rash, 02/20/17) gadobenic acid (Verified Allergy, Mild, Rash, 02/20/17) gadodiamide (Verified Allergy, Mild, Rash, 02/20/17) gadoteridol (Verified Allergy, Mild, Rash, 02/20/17) iodixanol (Verified Allergy, Mild, Rash, 02/20/17) iohexol (Verified Allergy, Mild, Rash, 02/20/17) Reported Meds & Prescriptions Reported Meds & Active Scripts Active Reported Percocet (Oxycodone-Acetaminophen) 10-325 mg Tab 1 Tab PO Q4H PRN Review of Systems Except as stated in HPI: all other systems reviewed are Neg Physical Exam Narrative GENERAL: Well-nourished, well-developed obese, restless white male in no acute distress. SKIN: Focused skin assessment warm/dry. HEAD: Normocephalic. EYES: No scleral icterus. No injection or drainage. NECK: Supple, trachea midline. No JVD or lymphadenopathy. CARDIOVASCULAR: Regular rate and rhythm without murmurs, gallops, or rubs. RESPIRATORY: Breath sounds clear and equal bilaterally. No accessory muscle use. GASTROINTESTINAL: Abdomen soft, nondistended. Tender to palpation in the epigastric and left upper quadrant. Active bowel sounds. MUSCULOSKELETAL: No cyanosis, or edema. BACK: Nontender without obvious deformity. No CVA tenderness. Data Data Last Documented VS Vital Signs Date Time Temp Pulse Resp B/P (MAP) Pulse Ox O2 Delivery O2 Flow Rate FiO2 02/20/17 21:45 101 24 141/97 (112) 95 Room Air 02/20/17 20:09 98.2 Orders Orders Complete Blood Count With Diff (02/20/17 21:06) Comprehensive Metabolic Panel (02/20/17 21:06) Lipase (02/20/17 21:06) Lactic Acid (02/20/17 21:06) Urinalysis - C+S If Indicated (02/20/17 21:06) Iv Access Insert/Monitor (02/20/17 21:06) Ecg Monitoring (02/20/17 21:06) Oximetry (02/20/17 21:06) Morphine Inj (Morphine Inj) (02/20/17 21:15) Ondansetron Inj (Zofran Inj) (02/20/17 21:15) Sodium Chlor 0.9% 1000 Ml Inj (Ns 1000 M (02/20/17 21:06) Sodium Chloride 0.9% Flush (Ns Flush) (02/20/17 21:15) Electrocardiogram (02/20/17 21:06) Ct Abd/Pel W/O Iv Contrast (02/20/17 22:15) Troponin I (02/20/17 22:18) Ckmb (Isoenzyme) Profile (02/20/17 22:19) Morphine Inj (Morphine Inj) (02/20/17 23:15) Labs Laboratory Tests Test 02/20/17 21:15 White Blood Count 12.4 TH/MM3 Red Blood Count 5.21 MIL/MM3 Hemoglobin 15.0 GM/DL Hematocrit 43.4 % Mean Corpuscular Volume 83.4 FL Mean Corpuscular Hemoglobin 28.8 PG Mean Corpuscular Hemoglobin Concent 34.6 % Red Cell Distribution Width 13.7 % Platelet Count 227 TH/MM3 Mean Platelet Volume 9.3 FL Neutrophils (%) (Auto) 72.8 % Lymphocytes (%) (Auto) 19.4 % Monocytes (%) (Auto) 6.2 % Eosinophils (%) (Auto) 0.7 % Basophils (%) (Auto) 0.9 % Neutrophils # (Auto) 9.0 TH/MM3 Lymphocytes # (Auto) 2.4 TH/MM3 Monocytes # (Auto) 0.8 TH/MM3 Eosinophils # (Auto) 0.1 TH/MM3 Basophils # (Auto) 0.1 TH/MM3 CBC Comment DIFF FINAL Differential Comment MDM Medical Decision Making Medical Screen Exam Complete: Yes Emergency Medical Condition: Yes Differential Diagnosis Anxiety versus pancreatitis versus cholecystitis versus less likely ACS versus other Narrative Course 41 YO M with PMH of pancreatitis presents to the ED for evaluation 7 hours history of sharp, 10/10 epigastric pain with associated nausea and vomiting. He estimates 7 or 8 episodes of NBNB vomiting today. He endorses loose stools for the last few days. He denies anorexia, melena, hematochezia, BRBPR, dysuria, back pain, chest pain, palpitations, shortness of breath. He denies chronic alcohol use. PCP Dr. Rio Sky. Temp 98.2. Pulse 102, respiratory rate 16 , 97% on room air, EP 191/95 on presentation. Physical exam reveals a restless white male in no acute distress. He has tenderness in the epigastric and reviewed IV was established. Patient was administered 4 mg morphine, 4 mg Zofran, 1 L normal saline IV. EKG rate 90, sinus rhythm. LAD. Incomplete RBBB. No ST changes. Reviewed by Dr. Stone. CBC: WBC 12.4. Hemoglobin 15.0 I spoke to the lab who state that they're having problems running the patient's chemistries secondary to hyperlipidemia. He's had some fluid so we'll send up a redraw. CMP, UA, lactic acid, lipase, cardiac enzymes pending. The patient is signed out to Dr. Stone at the end of shift. Please see her note for disposition. Anai Gracia Feb 20, 2017 21:11
[2017-02-20] MEDS ORDERED: MORPHINE SULFATE 4 MG/ML INJ IV PUSH ONE ×2 (21:15→23:15)
[2017-02-20] MEDS ORDERED: SODIUM CHLORIDE 0.9% FLUSH 10 ML FLUSH IV FLUSH PRN (21:15)
[2017-02-20] MEDS ORDERED: ONDANSETRON HCL 4 MG/2 ML VIAL IVP ONE (21:15)
[2017-02-20 21:45] VITALS: BP 141/97; PULSE 101; RESP 24; O2SAT 95
[2017-02-20 22:33] LABS: BASOPHIL # 0.1 TH/MM3 (0-0.2); BASOPHIL % 0.9 % (0.0-2.0); EOSINOPHIL # 0.1 TH/MM3 (0-0.4); EOSINOPHIL % 0.7 % (0.0-4.0); HEMATOCRIT 43.4 % (39.0-51.0); LYMPH % 19.4 % (9.0-44.0); LYMPHOCYTE # 2.4 TH/MM3 (1.0-4.8); MEAN CELL VOLUME 83.4 FL (80.0-100.0); MEAN CORPUSCULAR HEMOGLOBIN 28.8 PG (27.0-34.0); MEAN CORPUSCULAR HGB CONC 34.6 % (32.0-36.0); MEAN PLATELET VOLUME 9.3 FL (7.0-11.0); MONO % 6.2 % (0.0-8.0); MONOCYTE # 0.8 TH/MM3 (0-0.9); NEUT % 72.8 % (16.0-70.0); PLATELET COUNT 227 TH/MM3 (150-450); RED BLOOD COUNT 5.21 MIL/MM3 (4.50-5.90); RED CELL DISTRIBUTION WIDTH 13.7 % (11.6-17.2); WHITE BLOOD COUNT 12.4 TH/MM3 (4.0-11.0)
[2017-02-20 23:20] LABS: BILIRUBIN, URINE NEG (NEG); BLOOD, URINE NEG (NEG); GLUCOSE,URINE 1000 mg/dL (NEG); KETONE, URINE 80 mg/dL (NEG); NITRITE,URINE NEG (NEG); URINE COLOR LIGHT-YELLOW (YELLW/STRAW); URINE LEUKOCYTE ESTERASE NEG (NEG)
--- NOTE | 2017-02-20 23:57 | RADRPT ---
EXAM DATE/TIME: 02/20/2017 23:31 [place] COMPARISON: CT ABDOMEN & PELVIS W/O CONTRAST, January 25, 2017, 17:17. INDICATIONS : Upper abdominal pain with nausea and vomiting today. ORAL CONTRAST: No oral contrast ingested. RADIATION DOSE: 19.48 CTDIvol (mGy) MEDICAL HISTORY : Hypertension. Pancreatitis. Diabetes. SURGICAL HISTORY : Testicle removed. ENCOUNTER: Initial ACUITY: 1 day PAIN SCALE: 4/10 LOCATION: Bilateral upper quadrant TECHNIQUE: Volumetric scanning of the abdomen and pelvis was performed. Using automated exposure control and ad justment of the mA and/or kV according to patient size, radiation dose was kept as low as reasonably achievable to obtain optimal diagnostic quality images. DICOM format image data is available electro nically for review and comparison. FINDINGS: LOWER LUNGS: Tiny pleural effusion seen at the right lung base. LIVER: 24 cm cranial caudal. Diffuse hepatic steatosis. CT appearance of the gallbladder within normal limit s. SPLEEN: Normal size without lesion. PANCREAS: Within normal limits. KIDNEYS: 2 mm mid zone stone on the left unchanged. No ureteral calculus. No hydronephrosis or hydroureter. ADRENAL GLANDS: Within normal limits. VASCULAR: There is no aortic aneurysm or significant atherosclerosis. BOWEL/MESENTERY: Diverticulosis again seen in the sigmoid colon. No diverticulitis or other acute inflammatory changes . The appendix is well-visualized, normal. ABDOMINAL WALL: 2.9 cm anterior abdominal wall defect containing fat again seen at the umbilicus, unchanged. RETROPERITONEUM: There is no lymphadenopathy. BLADDER: No wall thickening or mass. REPRODUCTIVE: Within normal limits. INGUINAL: Bilateral fat containing inguinal hernias are again noted. MUSCULOSKELETAL: No acute bony abnormality demonstrated. CONCLUSION: 1. No obstruction inflammatory changes or other acute abnormality. 2. Enlarged and fatty infiltrated liver again noted. 3. Fat-containing umbilical and bilateral inguinal hernias, unchanged. 4. Sigmoid colon diverticulosis without diverticulitis. 5. A tiny, nonspecific pleural effusion is seen of the right lung base. 6. 2 mm nonobstructing stone of the left kidney unchanged. Luis E Ross MD on February 20, 2017 at 23:51 Board Certified Radiologist. This report was verified electronically.
[2017-02-21] VITALS (8 sets, daily range): BP systolic 109–157; BP diastolic 81–109; PULSE 78–97; RESP 14–20; TEMP 96.3–98.8; O2SAT 97–98
[2017-02-21 00:40] LABS: ALKALINE PHOSPHATASE 66 U/L (45-117); BICARBONATE 23.3 MEQ/L (21.0-32.0); BLOOD UREA NITROGEN 19 MG/DL (7-18); CALCIUM 8.2 MG/DL (8.5-10.1); CHLORIDE 98 MEQ/L (98-107); CREATININE 0.91 MG/DL (0.60-1.30); GLOMERULAR FILTRATION RATE 92 ML/MIN (>89); GLUCOSE,RANDOM 291 MG/DL (74-106); LIPASE 988 U/L (73-393); SODIUM (NA) 127 MEQ/L (136-145); TOTAL BILIRUBIN ADULT LESS THAN 0.4 MG/DL (0.2-1.0); TOTAL PROTEIN 8.4 GM/DL (6.4-8.2)
[2017-02-21 00:41] LABS: TROPONIN I LESS THAN 0.02 NG/ML (0.02-0.05)
[2017-02-21 01:06] LABS: AST (GOT) 224 U/L (15-37)
[2017-02-21] MEDS ORDERED: HYDROmorphone HCL PF 1 MG/ML VIAL IV PUSH ONE (01:30)
[2017-02-21 02:21] LABS: ALT (GPT) ND U/L (12-78)
--- NOTE | 2017-02-21 02:21 | PD ---
Data Data Last Documented VS Vital Signs Date Time Temp Pulse Resp B/P (MAP) Pulse Ox O2 Delivery O2 Flow Rate FiO2 02/20/17 21:45 101 24 141/97 (112) 95 Room Air 02/20/17 20:09 98.2 Orders Orders Complete Blood Count With Diff (02/20/17 21:06) Comprehensive Metabolic Panel (02/20/17 21:06) Lipase (02/20/17 21:06) Lactic Acid (02/20/17 21:06) Urinalysis - C+S If Indicated (02/20/17 21:06) Iv Access Insert/Monitor (02/20/17 21:06) Ecg Monitoring (02/20/17 21:06) Oximetry (02/20/17 21:06) Morphine Inj (Morphine Inj) (02/20/17 21:15) Ondansetron Inj (Zofran Inj) (02/20/17 21:15) Sodium Chlor 0.9% 1000 Ml Inj (Ns 1000 M (02/20/17 21:06) Sodium Chloride 0.9% Flush (Ns Flush) (02/20/17 21:15) Electrocardiogram (02/20/17 21:06) Ct Abd/Pel W/O Iv Contrast (02/20/17 22:15) Morphine Inj (Morphine Inj) (02/20/17 23:15) Ckmb (Isoenzyme) Profile (02/20/17 21:15) Troponin I (02/20/17 21:15) CKMB (02/20/17 23:00) CKMB% (02/20/17 23:00) Hydromorphone Pf Inj (Dilaudid Pf Inj) (02/21/17 01:30) Admit Order (Ed Use Only) (02/21/17 02:16) Labs Laboratory Tests Test 02/20/17 01:14 02/20/17 21:15 02/20/17 23:00 Blood Urea Nitrogen 19 MG/DL Creatinine 0.91 MG/DL Random Glucose 291 MG/DL Total Protein 8.4 GM/DL Albumin 3.0 GM/DL Calcium Level 8.2 MG/DL Alkaline Phosphatase 66 U/L Aspartate Amino Transf (AST/SGOT) 224 U/L Total Bilirubin LESS THAN 0.4 MG/DL Sodium Level 127 MEQ/L Chloride Level 98 MEQ/L Carbon Dioxide Level 23.3 MEQ/L Anion Gap 6 MEQ/L Estimat Glomerular Filtration Rate 92 ML/MIN Total Creatine Kinase 593 U/L Creatine Kinase MB 1.8 NG/ML Creatine Kinase MB % 0.3 % Troponin I LESS THAN 0.02 NG/ML Lipase 988 U/L White Blood Count 12.4 TH/MM3 Red Blood Count 5.21 MIL/MM3 Hemoglobin 15.0 GM/DL Hematocrit 43.4 % Mean Corpuscular Volume 83.4 FL Mean Corpuscular Hemoglobin 28.8 PG Mean Corpuscular Hemoglobin Concent 34.6 % Red Cell Distribution Width 13.7 % Platelet Count 227 TH/MM3 Mean Platelet Volume 9.3 FL Neutrophils (%) (Auto) 72.8 % Lymphocytes (%) (Auto) 19.4 % Monocytes (%) (Auto) 6.2 % Eosinophils (%) (Auto) 0.7 % Basophils (%) (Auto) 0.9 % Neutrophils # (Auto) 9.0 TH/MM3 Lymphocytes # (Auto) 2.4 TH/MM3 Monocytes # (Auto) 0.8 TH/MM3 Eosinophils # (Auto) 0.1 TH/MM3 Basophils # (Auto) 0.1 TH/MM3 CBC Comment DIFF FINAL Differential Comment Lactic Acid Level LESS THAN 0.1 mmol/L Urine Color LIGHT-YELLOW Urine Turbidity CLEAR Urine pH 6.0 Urine Specific [place] 1.033 Urine Protein TRACE mg/dL Urine Glucose (UA) 1000 mg/dL Urine Ketones 80 mg/dL Urine Occult Blood NEG Urine Nitrite NEG Urine Bilirubin NEG Urine Urobilinogen LESS THAN 2.0 MG/DL Urine Leukocyte Esterase NEG Urine RBC 1 /hpf Urine WBC LESS THAN 1 /hpf Microscopic Urinalysis Comment CULT NOT INDICATED [facility] Medical Record Reviewed: Yes Supervised Visit with JEFFREY: Yes Narrative Course I, Dr. Stone, have reviewed the advance practice practitioner's documentation and am in agreement, met with the patient face to face, made the diagnosis, and the medical decision making was done by me. *My assessment and Findings: Pancreatitis - year-old male with severe epigastric pain since tonight with nausea and vomiting. Patient currently with a lipase of 988, CT abdomen and pelvis does not show inflammation around the pancreas. Laboratory Tests Test 02/20/17 01:14 02/20/17 21:15 02/20/17 23:00 Blood Urea Nitrogen 19 MG/DL (7-18) Creatinine 0.91 MG/DL (0.60-1.30) Random Glucose 291 MG/DL (74-106) Total Protein 8.4 GM/DL (6.4-8.2) Albumin 3.0 GM/DL (3.4-5.0) Calcium Level 8.2 MG/DL (8.5-10.1) Alkaline Phosphatase 66 U/L (45-117) Aspartate Amino Transf (AST/SGOT) 224 U/L (15-37) Total Bilirubin LESS THAN 0.4 MG/DL Sodium Level 127 MEQ/L (136-145) Chloride Level 98 MEQ/L (98-107) Carbon Dioxide Level 23.3 MEQ/L (21.0-32.0) Anion Gap 6 MEQ/L (5-15) Estimat Glomerular Filtration Rate 92 ML/MIN (>89) Total Creatine Kinase 593 U/L (39-308) Creatine Kinase MB 1.8 NG/ML (0.5-3.6) Creatine Kinase MB % 0.3 % (0.0-4.0) Troponin I LESS THAN 0.02 NG/ML Lipase 988 U/L (73-393) White Blood Count 12.4 TH/MM3 (4.0-11.0) Red Blood Count 5.21 MIL/MM3 (4.50-5.90) Hemoglobin 15.0 GM/DL (13.0-17.0) Hematocrit 43.4 % (39.0-51.0) Mean Corpuscular Volume 83.4 FL (80.0-100.0) Mean Corpuscular Hemoglobin 28.8 PG (27.0-34.0) Mean Corpuscular Hemoglobin Concent 34.6 % (32.0-36.0) Red Cell Distribution Width 13.7 % (11.6-17.2) Platelet Count 227 TH/MM3 (150-450) Mean Platelet Volume 9.3 FL (7.0-11.0) Neutrophils (%) (Auto) 72.8 % (16.0-70.0) Lymphocytes (%) (Auto) 19.4 % (9.0-44.0) Monocytes (%) (Auto) 6.2 % (0.0-8.0) Eosinophils (%) (Auto) 0.7 % (0.0-4.0) Basophils (%) (Auto) 0.9 % (0.0-2.0) Neutrophils # (Auto) 9.0 TH/MM3 (1.8-7.7) Lymphocytes # (Auto) 2.4 TH/MM3 (1.0-4.8) Monocytes # (Auto) 0.8 TH/MM3 (0-0.9) Eosinophils # (Auto) 0.1 TH/MM3 (0-0.4) Basophils # (Auto) 0.1 TH/MM3 (0-0.2) CBC Comment DIFF FINAL Differential Comment Lactic Acid Level LESS THAN 0.1 mmol/L Urine Color LIGHT-YELLOW (YELLW/STRAW) Urine Turbidity CLEAR (CLEAR) Urine pH 6.0 (5.0-8.5) Urine Specific [place] 1.033 (1.002-1.035) Urine Protein TRACE mg/dL (NEG-TRACE) Urine Glucose (UA) 1000 mg/dL (NEG) Urine Ketones 80 mg/dL (NEG) Urine Occult Blood NEG (NEG) Urine Nitrite NEG (NEG) Urine Bilirubin NEG (NEG) Urine Urobilinogen LESS THAN 2.0 MG/DL (LESS Urine Leukocyte Esterase NEG (NEG) Urine RBC 1 /hpf (0-3) Urine WBC LESS THAN 1 /hpf (0-5) Microscopic Urinalysis Comment CULT NOT INDICATED Delay of care due to lipemic blood - patient's blood run multiple times due to lipemia, patient does admit to history of hyperlipidemia, currently doesn't take any medications except for narcotic pain medication. Patient with intractable abdominal pain at this time, will admit for treatment of pancreatitis. Case reviewed with Dr. Shelton who accepts patient to service. Diagnosis Primary Impression: Pancreatitis, acute Qualified Codes: K85.90 - Acute pancreatitis without necrosis or infection, unspecified Admitting Information Admitting Physician Requests: Ethel Campos DO Feb 21, 2017 02:21
--- NOTE | 2017-02-21 02:25 | HHI.HP ---
HPI Service [facility] Primary Care Physician Rio Sky MD (Paul) Admission Diagnosis Pancreatitis Diagnoses: Travel History International Travel<30 Days: No Contact w/Intl Traveler <30 Da: No Traveled to Known Affected Are: No History of Present Illness 41 y/o male with a history of DM (not on any medication) presented to the ED with complaints of severe abdominal pain. He states the pain is constant, 10/10 , epigastric region that began at 5 pm with radiation to his back, with associated nausea, vomiting and diarrhea. He is also complaining of a sharp headache pain. He has recently lost 60 lbs but has never been on diabetic medication. He denies any fevers or chills. Denies any chest pain or shortness of breath. He does report a headache since yesterday afternoon. Denies any focal signs or symptoms. PCP: Dr. Sky Review of Systems Except as stated in HPI: all other systems reviewed are Neg Past Family Social History Past Medical History DM, not on any medication Past Surgical History Hernia repair Testicle removal Reported Medications Allergies: Coded Allergies: diatrizoate meglumine (Verified Allergy, Mild, Rash, 02/20/17) gadobenic acid (Verified Allergy, Mild, Rash, 02/20/17) gadodiamide (Verified Allergy, Mild, Rash, 02/20/17) gadoteridol (Verified Allergy, Mild, Rash, 02/20/17) iodixanol (Verified Allergy, Mild, Rash, 02/20/17) iohexol (Verified Allergy, Mild, Rash, 02/20/17) Active Ordered Medications Current Medications Medications (Trade) Dose Ordered Sig/Biju Route Start Time Stop Time Status Last Admin Sodium Chloride 1,000 ml @ 100 mls/hr Q10H IV 02/21/17 02:21 (NS Flush) 2 ml UNSCH PRN IV FLUSH 02/21/17 02:30 (NS Flush) 2 ml BID IV FLUSH 02/21/17 09:00 (Zofran Inj) 4 mg Q6H PRN IVP 02/21/17 02:30 (Narcan Inj) 0.4 mg UNSCH PRN IV PUSH 02/21/17 02:30 (Milk Of Magnesia Liq) 30 ml Q12H PRN PO 02/21/17 02:30 (Senokot) 17.2 mg Q12H PRN PO 02/21/17 02:30 (Dulcolax Supp) 10 mg DAILY PRN RECTAL 02/21/17 02:30 (Lactulose Liq) 30 ml DAILY PRN PO 02/21/17 02:30 Family History Mom: Heart disease at 57 Dad: Heart disease Social History Denies any tobacco, alcohol or illicit drug use. Physical Exam Vital Signs Vital Signs Date Time Temp Pulse Resp B/P (MAP) Pulse Ox O2 Delivery O2 Flow Rate FiO2 02/20/17 21:45 101 24 141/97 (112) 95 Room Air 02/20/17 20:09 98.2 102 16 191/95 (127) 97 Room Air Physical Exam GENERAL: This is a well-nourished, well-developed patient, in no apparent distress. SKIN: No rashes, ecchymoses or lesions. Cool and dry. HEAD: Atraumatic. Normocephalic. EYES: Pupils equal round and reactive. ENT: Nose without bleeding, purulent drainage or septal hematoma. Airway patent. NECK: Trachea midline. No JVD or lymphadenopathy. Supple, nontender, no meningeal signs. CARDIOVASCULAR: Regular rate and rhythm without murmurs, gallops, or rubs. RESPIRATORY: Clear to auscultation. Breath sounds equal bilaterally. No wheezes , rales, or rhonchi. GASTROINTESTINAL: Abdomen soft, epigastric tenderness, nondistended. No guarding. MUSCULOSKELETAL: Extremities without clubbing, cyanosis, or edema.. No calf tenderness. NEUROLOGICAL: Awake and alert. Motor and sensory grossly within normal limits. Normal speech. Laboratory Laboratory Tests Test 02/20/17 21:15 02/20/17 23:00 White Blood Count 12.4 Red Blood Count 5.21 Hemoglobin 15.0 Hematocrit 43.4 Mean Corpuscular Volume 83.4 Mean Corpuscular Hemoglobin 28.8 Mean Corpuscular Hemoglobin Concent 34.6 Red Cell Distribution Width 13.7 Platelet Count 227 Mean Platelet Volume 9.3 Neutrophils (%) (Auto) 72.8 Lymphocytes (%) (Auto) 19.4 Monocytes (%) (Auto) 6.2 Eosinophils (%) (Auto) 0.7 Basophils (%) (Auto) 0.9 Neutrophils # (Auto) 9.0 Lymphocytes # (Auto) 2.4 Monocytes # (Auto) 0.8 Eosinophils # (Auto) 0.1 Basophils # (Auto) 0.1 CBC Comment DIFF FINAL Differential Comment Lactic Acid Level LESS THAN 0.1 Urine Color LIGHT-YELLOW Urine Turbidity CLEAR Urine pH 6.0 Urine Specific [place] 1.033 Urine Protein TRACE Urine Glucose (UA) 1000 Urine Ketones 80 Urine Occult Blood NEG Urine Nitrite NEG Urine Bilirubin NEG Urine Urobilinogen LESS THAN 2.0 Urine Leukocyte Esterase NEG Urine RBC 1 Urine WBC LESS THAN 1 Microscopic Urinalysis Comment CULT NOT INDICATED Result Diagram: 02/20/17211402/20/17 0114 Imaging Current Medications Medications (Trade) Dose Ordered Sig/Biju Route Start Time Stop Time Status Last Admin Sodium Chloride 1,000 ml @ 100 mls/hr Q10H IV 02/21/17 02:21 (NS Flush) 2 ml UNSCH PRN IV FLUSH 02/21/17 02:30 (NS Flush) 2 ml BID IV FLUSH 02/21/17 09:00 (Zofran Inj) 4 mg Q6H PRN IVP 02/21/17 02:30 (Narcan Inj) 0.4 mg UNSCH PRN IV PUSH 02/21/17 02:30 (Milk Of Magnesia Liq) 30 ml Q12H PRN PO 02/21/17 02:30 (Senokot) 17.2 mg Q12H PRN PO 02/21/17 02:30 (Dulcolax Supp) 10 mg DAILY PRN RECTAL 02/21/17 02:30 (Lactulose Liq) 30 ml DAILY PRN PO 02/21/17 02:30 Caprini VTE Risk Assessment Caprini VTE Risk Assessment: No/Low Risk (score <= 1) Caprini Risk Assessment Model Point Value = 1 Point Value = 2 Point Value = 3 Point Value = 5 Age 41-60 Minor surgery BMI > 25 kg/m2 Swollen legs Varicose veins or History of unexplained or recurrent spontaneous Oral contraceptives or hormone replacement Sepsis (< 1 month) Serious lung disease, including pneumonia (< 1 month) Abnormal pulmonary function Acute myocardial infarction Congestive heart failure (< 1 month) History of inflammatory bowel disease Medical patient at bed rest Age 61-74 Arthroscopic surgery Major open surgery (> 45 min) Laparoscopic surgery (> 45 min) Malignancy Confined to bed (> 72 hours) Immobilizing plaster cast Central venous access Age >= 75 History of VTE Family history of VTE Factor V Leiden Prothrombin [id number] Lupus anticoagulant Anticardiolipin antibodies Elevated serum homocysteine Heparin-induced thrombocytopenia Other congenital or acquired thrombophilia Stroke (< 1 month) Elective arthroplasty Hip, pelvis, or leg fracture Acute spinal cord injury (< 1 month) Prophylaxis Regimen Total Risk Factor Score Risk Level Prophylaxis Regimen 0-1 Low Early ambulation 2 Moderate Order ONE of the following: *Sequential Compression Device (SCD) *Heparin 5000 units SQ BID 3-4 Higher Order ONE of the following medications: *Heparin 5000 units SQ TID *Enoxaparin/Lovenox 40 mg SQ daily (WT < 150 kg, CrCl > 30 mL/min) *Enoxaparin/Lovenox 30 mg SQ daily (WT < 150 kg, CrCl > 10-29 mL/min) *Enoxaparin/Lovenox 30 mg SQ BID (WT < 150 kg, CrCl > 30 mL/min) AND/OR *Sequential Compression Device (SCD) 5 or more Highest Order ONE of the following medications: *Heparin 5000 units SQ TID (Preferred with Epidurals) *Enoxaparin/Lovenox 40 mg SQ daily (WT < 150 kg, CrCl > 30 mL/min) *Enoxaparin/Lovenox 30 mg SQ daily (WT < 150 kg, CrCl > 10-29 mL/min) *Enoxaparin/Lovenox 30 mg SQ BID (WT < 150 kg, CrCl > 30 mL/min) AND *Sequential Compression Device (SCD) Assessment and Plan Assessment and Plan //Acute pancreatitis -With tachycardia heart rate in the 100s, white blood cell count 12.4. CT with no signs of infection. -Likely secondary to hypertriglyceridemia. Checking lipids as below. -Aggressive IV fluid hydration //History of triglyceridemia. Lipids to be checked. //Diabetes mellitus //Hyperglycemia 191 on admission. -Insulin sliding scale. Diabetic diet when diet restarted. //Hypovolemic Hyponatremia. Sodium corrects to 130. Likely secondary to dehydration. Hydration as above. //CK elevation. Routine kinase 593. Likely secondary to dehydration. Treat dehydration, pancreatitis as above. Discussed Condition With Patient and ER physician Physician Certification 2 Midnight Certification Type: Admission for Inpatient Services Order for Inpatient Services The services are ordered in accordance with Medicare regulations or non- Medicare payer requirements, as applicable. In the case of services not specified as inpatient-only, they are appropriately provided as inpatient services in accordance with the 2-midnight benchmark. Estimated LOS (days): 2 days is the estimated time the patient will need to remain in the hospital, assuming treatment plan goals are met and no additional complications. Post-Hospital Plan: Not yet determined Mike Shelton MD Feb 21, 2017 02:25
[2017-02-21] MEDS ORDERED: NALOXONE HCL 0.4 MG/ML AMP IV PUSH PRN (02:30)
[2017-02-21] MEDS ORDERED: BISACODYL 10 MG SUPP RECTAL PRN (02:30)
[2017-02-21] MEDS ORDERED: SENNOSIDES 8.6 MG TAB PO PRN (02:30)
[2017-02-21] MEDS ORDERED: MAGNESIUM HYDROXIDE SUSP 30 ML CUP PO PRN (02:30)
[2017-02-21] MEDS ORDERED: LACTULOSE SYRUP 20 GM/30 ML CUP PO PRN (02:30)
[2017-02-21] MEDS ORDERED: MORPHINE SULFATE 2 MG/ML INJ IM PRN (04:30)
[2017-02-21] MEDS ORDERED: MORPHINE SULFATE 4 MG/ML INJ IV PUSH PRN (04:30)
[2017-02-21] MEDS: HYDROmorphone HCL PF 1 MG/ML VIAL IV PUSH PRN ×7 (05:28→23:58)
[2017-02-21] MEDS ORDERED: HYDROmorphone HCL PF 1 MG/ML VIAL IV PUSH PRN (05:30)
[2017-02-21] MEDS: ONDANSETRON HCL 4 MG/2 ML VIAL IVP PRN ×3 (05:35→23:57)
[2017-02-21 07:06] LABS: HDL CHOLESTEROL 21.9 MG/DL (40.0-60.0)
[2017-02-21] MEDS: INSULIN ASPART SUPPLEMENTAL SCALE SQ SCH ×2 (08:00→12:00)
[2017-02-21] MEDS: SODIUM CHLOR 0.9% 1000 ML INJ 1,000 ML IV SCH ×8 (08:01→23:29)
[2017-02-21 08:04] LABS: CHOLESTEROL/ HDL RATIO 18.08 RATIO
[2017-02-21] MEDS: SODIUM CHLORIDE 0.9% FLUSH 10 ML FLUSH IV FLUSH SCH ×2 (09:00→20:27)
[2017-02-21] MEDS: SODIUM CHLORIDE 0.9% FLUSH 10 ML FLUSH IV FLUSH PRN (09:20)
[2017-02-21 11:48] LABS: ALBUMIN 2.9 GM/DL (3.4-5.0); ALKALINE PHOSPHATASE 58 U/L (45-117); BICARBONATE 23.7 MEQ/L (21.0-32.0); CALCIUM 7.8 MG/DL (8.5-10.1); CHLORIDE 95 MEQ/L (98-107); CREATININE 0.84 MG/DL (0.60-1.30); GLOMERULAR FILTRATION RATE 101 ML/MIN (>89); GLUCOSE,RANDOM 311 MG/DL (74-106); SODIUM (NA) 128 MEQ/L (136-145)
[2017-02-21 11:49] LABS: BLOOD UREA NITROGEN 13 MG/DL (7-18)
[2017-02-21 11:50] LABS: TOTAL PROTEIN 7.8 GM/DL (6.4-8.2)
[2017-02-21 11:51] LABS: TOTAL BILIRUBIN ADULT 0.8 MG/DL (0.2-1.0)
[2017-02-21 12:12] LABS: ALT (GPT) 49 U/L (12-78)
--- NOTE | 2017-02-21 13:36 | HHI.PR ---
Addendum to Inpatient Note Addendum Reason: Additional Documentation Additional Information The patient felt more comfortable on 1 mg of Dilaudid every 3 hours as needed. Discussed with hematology, they will evaluate the patient for a plasmapheresis for the severe hypertriglyceridemia. GI consult has also been requested. Continue glucose control and keep the patient nothing by mouth with IV fluids. Declan Barksdale DO Feb 21, 2017 13:36
[2017-02-21] MEDS ORDERED: MISCELLANEOUS NURSING INFORMATION XX SCH (14:15)
[2017-02-21] MEDS ORDERED: SODIUM PHOSPHATE INJ 15 MMOL in SODIUM CHLORIDE 0.9% INJ 100 ML IV PRN (14:15)
[2017-02-21] MEDS ORDERED: POTASSIUM CHLOR 20 MEQ PREMIX 100 ML IV PRN ×3 (14:15)
[2017-02-21] MEDS ORDERED: CHLORHEXIDINE GLUCONATE 2 % 1 PACK (2 CLOTHS) TOP PRN (14:15)
[2017-02-21] MEDS ORDERED: SODIUM BICARBONATE 8.4% SOLN 50 MEQ/50 ML VIAL IV PUSH PRN ×2 (14:15)
[2017-02-21] MEDS: DEXT 5%-NACL 0.9% 1000 ML INJ 1,000 ML IV SCH ×3 (14:15→21:54)
[2017-02-21] MEDS ORDERED: INSULIN HUMAN REGULAR 1,000 UNITS/10 ML VIAL IV PUSH ONE (14:15)
--- NOTE | 2017-02-21 14:54 | PD.CONS ---
HPI History of Present Illness This is a 41 year old male who presented to the ED with c/o severe epigastric abdominal pain. Rated pain as 10/10 and constant with radiation to his back. Pain is associated with nausea, vomiting, and diarrhea. PMH is significant for DM (not on medication) and history of pancreatitis x 1 episode, 1 year ago. Patient reports recent 60lb weight loss. Has headache. Reports he continues to be nauseated with episodes of vomiting. Denies any alcohol use. PFSH Past Medical History DM, not on any medication History of pancreatitis 1 year ago Past Surgical History Hernia repair Testicle removal Coded Allergies: diatrizoate meglumine (Verified Allergy, Mild, Rash, 02/20/17) gadobenic acid (Verified Allergy, Mild, Rash, 02/20/17) gadodiamide (Verified Allergy, Mild, Rash, 02/20/17) gadoteridol (Verified Allergy, Mild, Rash, 02/20/17) iodixanol (Verified Allergy, Mild, Rash, 02/20/17) iohexol (Verified Allergy, Mild, Rash, 02/20/17) Medications Current Medications Medications (Trade) Dose Ordered Sig/Biju Route PRN Reason Start Time Stop Time Status Last Admin Dose Admin Sodium Chloride 1,000 ml @ 200 mls/hr Q5H IV 02/21/17 02:21 02/21/17 12:40 Sodium Chloride (NS Flush) 2 ml UNSCH PRN IV FLUSH FLUSH AFTER USING IV ACCESS 02/21/17 02:30 02/21/17 09:20 Sodium Chloride (NS Flush) 2 ml BID IV FLUSH 02/21/17 09:00 02/21/17 09:00 Ondansetron HCl (Zofran Inj) 4 mg Q6H PRN IVP NAUSEA OR VOMITING 02/21/17 02:30 02/21/17 05:35 Naloxone HCl (Narcan Inj) 0.4 mg UNSCH PRN IV PUSH SEE LABEL COMMENTS 02/21/17 02:30 Magnesium Hydroxide (Milk Of Magnesia Liq) 30 ml Q12H PRN PO Mild constipation 02/21/17 02:30 Sennosides (Senokot) 17.2 mg Q12H PRN PO Moderate constipation 02/21/17 02:30 Bisacodyl (Dulcolax Supp) 10 mg DAILY PRN RECTAL SEVERE CONSITIPATION 02/21/17 02:30 Lactulose (Lactulose Liq) 30 ml DAILY PRN PO SEVERE CONSITIPATION 02/21/17 02:30 Hydromorphone HCl (Dilaudid Pf Inj) 0.5 mg Q4H PRN IV PUSH pain 1-5 02/21/17 05:30 Hydromorphone HCl (Dilaudid Pf Inj) 1 mg Q3H PRN IV PUSH pain 6-10 02/21/17 09:30 02/21/17 12:21 Sodium Chloride 1,000 ml @ 250 mls/hr Q4H IV 02/21/17 14:15 UNV Dextrose/Sodium Chloride 1,000 ml @ 200 mls/hr Q5H IV 02/21/17 14:15 UNV Insulin Human Regular (NovoLIN R INJ) 10 units BOLUS ONCE IV PUSH 02/21/17 14:15 02/21/17 14:16 UNV Insulin Human Regular 100 units/ Sodium Chloride 100 ml @ 11.36 mls/ hr TITRATE PRN IV Blood Glucose Control 02/21/17 14:15 UNV Potassium Chloride 100 ml @ 50 mls/hr Q2H PRN IV SEE LABEL COMMENTS 02/21/17 14:15 UNV Potassium Chloride 100 ml @ 50 mls/hr Q2H PRN IV SEE LABEL COMMENTS 02/21/17 14:15 UNV Potassium Chloride 100 ml @ 50 mls/hr Q2H PRN IV SEE LABEL COMMENTS 02/21/17 14:15 UNV Potassium Chloride 100 ml @ 50 mls/hr Q2H PRN IV SEE LABEL COMMENTS 02/21/17 14:15 UNV Sodium Bicarbonate (Sodium Bicarbonate 8.4% Inj) 100 meq UNSCH PRN IV PUSH SEE LABEL COMMENTS 02/21/17 14:15 UNV Sodium Bicarbonate (Sodium Bicarbonate 8.4% Inj) 50 meq UNSCH PRN IV PUSH SEE LABEL COMMENTS 02/21/17 14:15 UNV Sodium Phosphate 15 mmol/Sodium Chloride 105 ml @ 25 mls/hr UNSCH PRN IV SEE LABEL COMMENTS 02/21/17 14:15 UNV Miscellaneous Information 1 Q361D XX 02/21/17 14:15 UNV Chlorhexidine Gluconate (Chlorhexidine 2% Cloth) 3 pack Taper DAILY@04 TOP 02/22/17 04:00 02/18/18 03:59 UNV Chlorhexidine Gluconate (Chlorhexidine 2% Cloth) 3 pack UNSCH PRN TOP HYGIENIC CARE 02/21/17 14:15 UNV Family History Mom, heart disease at 57 Dad, heart disease Social History Tobacco, denies ETOH, denies Illicit Drugs, denies Review of Systems Constitutional: COMPLAINS OF: Weight loss, DENIES: Diaphoretic episodes, Fatigue, Fever, Weight gain, Chills, Dizziness, Change in appetite, Night Sweats Endocrine: DENIES: Polydipsia, Polyuria Eyes: DENIES: Blurred vision, Photosensitivity, Double Vision Ears, nose, mouth, throat: DENIES: Hearing loss, Vertigo, Oral lesions, Throat pain, Hoarseness Respiratory: DENIES: Cough, Wheezing, Hemoptysis, Sputum production, Shortness of breath Cardiovascular: DENIES: Chest pain, Palpitations, Syncope, Lower Extremity Edema, Orthopnea, Claudication Gastrointestinal: COMPLAINS OF: Abdominal pain, Diarrhea, Nausea, Vomiting, DENIES: Black stools, Bloody stools, Constipation, Difficulty Swallowing, Anorexia, Odynophagia, Swelling of Abdomen, Heartburn, Hematemesis Genitourinary: DENIES: Urinary frequency, Urinary incontinence, Urgency, Hematuria, Dysuria, Nocturia Musculoskeletal: DENIES: Joint pain, Muscle aches, Stiffness, Joint Swelling, Back pain, Neck pain Integumentary: DENIES: Abnormal pigmentation, Nail changes, Pruritus, Rash, Jaundice Hematologic/lymphatic: DENIES: Bruising, Lymphadenopathy Immunologic/allergic: DENIES: Eczema, Urticaria Neurologic: COMPLAINS OF: Headache, DENIES: Abnormal gait, Localized weakness, Paresthesias Psychiatric: DENIES: Anxiety, Confusion, Mood changes, Depression, Agitation, Suicidal Ideation GI Exam Vitals I&O Vital Signs Date Time Temp Pulse Resp B/P (MAP) Pulse Ox O2 Delivery O2 Flow Rate FiO2 02/21/17 12:00 96.3 78 16 109/85 (93) 98 02/21/17 09:50 16 02/21/17 08:00 96.8 87 16 154/109 (124) 98 02/21/17 04:00 98.8 87 18 157/97 (117) 97 02/20/17 21:45 101 24 141/97 (112) 95 Room Air 02/20/17 20:09 98.2 102 16 191/95 (127) 97 Room Air I/O 02/20/17 02/20/17 02/20/17 02/21/17 02/21/17 02/21/17 07:00 15:00 23:00 07:00 15:00 23:00 Intake Total 1000 ml Balance 1000 ml Intake IV Total 1000 ml # Voids 0 # Bowel Movements 0 Imaging Last Impressions Abdomen/Pelvis CT 02/20/17 8604 Signed Impressions: Service Date/Time: Monday, February 20, 2017 23:31 - CONCLUSION: 1. No obstruction inflammatory changes or other acute abnormality. 2. Enlarged and fatty infiltrated liver again noted. 3. Fat-containing umbilical and bilateral inguinal hernias, unchanged. 4. Sigmoid colon diverticulosis without diverticulitis. 5. A tiny, nonspecific pleural effusion is seen of the right lung base. 6. 2 mm nonobstructing stone of the left kidney unchanged. Luis E Ross MD Laboratory Test 02/20/17 21:15 02/20/17 23:00 02/21/17 03:15 02/21/17 10:12 White Blood Count 12.4 TH/MM3 Red Blood Count 5.21 MIL/MM3 Hemoglobin 15.0 GM/DL Hematocrit 43.4 % Mean Corpuscular Volume 83.4 FL Mean Corpuscular Hemoglobin 28.8 PG Mean Corpuscular Hemoglobin Concent 34.6 % Red Cell Distribution Width 13.7 % Platelet Count 227 TH/MM3 Mean Platelet Volume 9.3 FL Neutrophils (%) (Auto) 72.8 % Lymphocytes (%) (Auto) 19.4 % Monocytes (%) (Auto) 6.2 % Eosinophils (%) (Auto) 0.7 % Basophils (%) (Auto) 0.9 % Neutrophils # (Auto) 9.0 TH/MM3 Lymphocytes # (Auto) 2.4 TH/MM3 Monocytes # (Auto) 0.8 TH/MM3 Eosinophils # (Auto) 0.1 TH/MM3 Basophils # (Auto) 0.1 TH/MM3 CBC Comment DIFF FINAL Differential Comment Lactic Acid Level LESS THAN 0.1 mmol/L Urine Color LIGHT-YELLOW Urine Turbidity CLEAR Urine pH 6.0 Urine Specific [place] 1.033 Urine Protein TRACE mg/dL Urine Glucose (UA) 1000 mg/dL Urine Ketones 80 mg/dL Urine Occult Blood NEG Urine Nitrite NEG Urine Bilirubin NEG Urine Urobilinogen LESS THAN 2.0 MG/DL Urine Leukocyte Esterase NEG Urine RBC 1 /hpf Urine WBC LESS THAN 1 /hpf Microscopic Urinalysis Comment CULT NOT INDICATED Triglycerides Level 4929 MG/DL Cholesterol Level 396 MG/DL LDL Cholesterol MG/DL HDL Cholesterol 21.9 MG/DL Cholesterol/HDL Ratio 18.08 RATIO Blood Urea Nitrogen 13 MG/DL Creatinine 0.84 MG/DL Random Glucose 311 MG/DL Total Protein 7.8 GM/DL Albumin 2.9 GM/DL Calcium Level 7.8 MG/DL Alkaline Phosphatase 58 U/L Aspartate Amino Transf (AST/SGOT) U/L Alanine Aminotransferase (ALT/SGPT) 49 U/L Total Bilirubin 0.8 MG/DL Sodium Level 128 MEQ/L Potassium Level 5.9 MEQ/L Chloride Level 95 MEQ/L Carbon Dioxide Level 23.7 MEQ/L Anion Gap 9 MEQ/L Estimat Glomerular Filtration Rate 101 ML/MIN Physical Examination HEENT: Normocephalic NECK: Neck is supple CHEST: CTA CARDIAC: RRR with no murmur gallop or rubs. ABDOMEN: Soft, obese, epigastric TTP nondistended,bowel sounds are present in all four quadrants. EXTREMITIES: No clubbing, cyanosis, or edema. SKIN: Normal; no rash; no jaundice. MINING ENGINEERING TECHNOLOGIST: No focal deficits; alert and oriented times three. Assessment and Plan Plan ASSESSMENT: - Acute pancreatitis, most likely secondary to hypertriglyceridemia. Patient denies ETOH use. Reports history of pancreatitis x 1 episode, 1 year ago. Reports epigastric tenderness. Has nausea, vomiting, and diarrhea. CT Abdomen (02/20/17)--1. No obstruction inflammatory changes or other acute abnormality. 2. Enlarged and fatty infiltrated liver again noted. 3. Fat-containing umbilical and bilateral inguinal hernias, unchanged. 4. Sigmoid colon diverticulosis without diverticulitis. 5. A tiny, nonspecific pleural effusion is seen of the right lung base. 6. 2 mm nonobstructing stone of the left kidney unchanged. Lipase 988 (02/20). Triglycerides 4929. Cholesterol 396. - DM, not on any medication. Reports recent weight loss of 60 lbs. Insulin sliding scale. Diabetic diet once diet re started. PLAN: - NPO - IV fluids - Anti-emetics - Pain control - Supportive care - Further recommendations to follow based on results of above Patient seen and examined by Dr. Ramos and myself and this note is written on his behalf. Berta Ram Feb 21, 2017 14:54
[2017-02-21] MEDS: INSULIN REGULAR (IV INFUSION) 100 UNITS in SODIUM CHLORIDE 0.9% INJ 99 ML IV PRN ×2 (16:13→23:57)
--- NOTE | 2017-02-21 16:17 | MB ---
cc: SAM ANGLIN M.D. DATE OF CONSULTATION: 02/21/2017. REASON FOR CONSULTATION: Hematology was consulted to consider plasmapheresis for a patient with hypertriglyceridemia and acute pancreatitis. ATTENDING PHYSICIAN: Dr. Barksdale. HISTORY OF PRESENT ILLNESS: The patient is a very pleasant 41-year-old male admitted with complaint of increased mid epigastric abdominal pain that started at 05:00 p.m. yesterday. He states that the pain was a 10/10 and is constant. It radiates to the back. He had nausea, vomiting and loose stools. He also had headache. He had a similar episode about a pwqd-bdy-b-half ago. At that time, he was given insulin. His symptoms resolved. He has had diabetes but is not on any medications. He has tried to lose weight and he has lost about sixty pounds. He denies drinking any alcohol. He has hot flashes. He denies any fever or chills. He denies any chest pressure. He denies any shortness of breath or cough. He denies any dysuria or hematuria. PAST MEDICAL HISTORY: 1. Diabetes mellitus not on any medication. 2. Hyperlipidemia. 3. Kidney stones. 4. Pancreatitis. PAST SURGICAL HISTORY: 1. Hernia repair. 2. Left orchiectomy for benign reasons. FAMILY HISTORY: Positive for heart disease. SOCIAL HISTORY: He denies tobacco or alcohol use. ALLERGIES: Documented in his chart. MEDICATIONS: 1. Insulin. REVIEW OF SYSTEMS: CONSTITUTIONAL: As above. EYES: Negative. ENT: Negative. CARDIOVASCULAR: Denies any chest pressure or palpitations. RESPIRATORY: Denies any shortness of breath or cough. GI: As above. : Denies any dysuria or hematuria. MUSCULOSKELETAL: Negative. HEMATOLOGIC: Negative. ENDOCRINE: As above. DERMATOLOGIC: Negative. PSYCHIATRIC: Negative. NEUROLOGIC: Has a headache. PHYSICAL EXAMINATION: VITAL SIGNS: Temperature 96.3, blood pressure 109/85, 02 saturation 98% on room air. GENERAL: He is alert and oriented times three and in no acute distress. Overweight. HEAD, EYES, EARS, NOSE, THROAT: Atraumatic, normocephalic. Pupils equal, round, reactive to light. Extraocular muscles intact. No scleral icterus. OROPHARYNX: Dry mucosa. NECK: No thyromegaly. No palpable mass. LYMPHATIC: No palpable cervical, clavicular, axillary or inguinal lymph nodes. CARDIOVASCULAR: Regular S1-S2. No murmur. LUNGS: Clear to auscultation bilaterally. No wheezing or rhonchi. ABDOMEN: Abdomen is soft but tender in the mid epigastric area. Positive bowel sounds. No acute abdomen. EXTREMITIES: No cyanosis or clubbing. No edema. BACK: No paravertebral tenderness. SKIN: No rash or petechiae. NEUROLOGIC EXAM: Nonfocal. LABORATORY DATA: Reviewed. ASSESSMENT: 1. Acute pancreatitis due to hypertriglyceridemia. His triglyceride level is 4920. Lipase was 988. Liver transaminase is also elevated. CT of the abdomen and pelvis shows fatty liver. The patient had a similar episode about a year ago. At that time, he was given insulin drip and his symptoms resolved. He has been trying to lose weight and has not been started on any diabetic medications and he is also not taking any medications for hypertriglyceridemia. His blood glucose is 311. Hematology was consulted to consider plasmapheresis for the hypertriglyceridemia. The patient appears stable. His symptoms seem to have improved with insulin. I recommend that he be started on insulin drip and check his triglyceride level in the morning. If it is still significantly elevated, then we could consider putting a Vas-Cath and start plasmapheresis. I explained the procedure to the patient and the patient agreed with the plan. 2. Diabetes mellitus. He is not on any medication. He is trying to lose weight to control his blood glucose. 3. Hyperlipidemia. 4. Kidney stones. 5. Fatty liver. RECOMMENDATIONS: 1. Try insulin drip. 2. Monitor triglyceride level. 3. If he has persistent elevated triglyceride level, would do the plasmapheresis tomorrow. Discussed the case with Dr. Barksdale. Thank you Dr. Barksdale for asking me to see this patient. MD NIYA Mckeon/ALLEN /2:33 PM /4:05 PM MTDD
[2017-02-21 16:42] LABS: BICARBONATE 24.2 MEQ/L (21.0-32.0); BLOOD UREA NITROGEN 10 MG/DL (7-18); CALCIUM 8.1 MG/DL (8.5-10.1); CHLORIDE 100 MEQ/L (98-107); CREATININE 0.75 MG/DL (0.60-1.30); GLOMERULAR FILTRATION RATE 115 ML/MIN (>89); GLUCOSE,RANDOM 214 MG/DL (74-106); SODIUM (NA) 133 MEQ/L (136-145)
[2017-02-21 18:52] LABS: BICARBONATE 22.3 MEQ/L (21.0-32.0); CALCIUM 8.3 MG/DL (8.5-10.1); CREATININE 0.81 MG/DL (0.60-1.30)
[2017-02-21] MEDS: GEMFIBROZIL 600 MG TAB PO SCH (19:07)
--- NOTE | 2017-02-21 20:44 | EKG ---
Date Performed: 02/20/2017 Time Performed: 21:52:08 PTAGE: 41 years EKG: Sinus rhythm MARKED LEFT AXIS DEVIATION INCOMPLETE RIGHT BUNDLE BRANCH BLOCK ABNORMAL ECG PREVIOUS TRACING : 02/11/2016 04.42 DOCTOR: Esther Cowan Interpretating Date/Time 02/21/2017 20:40:18
--- NOTE | 2017-02-21 23:55 | RADRPT ---
EXAM DATE/TIME: 02/21/2017 21:06 [facility] COMPARISON: CT ABDOMEN & PELVIS W/O CONTRAST, February 20, 2017, 23:31. INDICATIONS : Nausea and vomiting. MEDICAL HISTORY : Hypertension. Neuropathy. Kidney stones. Pancreatitis. SURGICAL HISTORY : Spinal surgery. Hernia repair. Left orchiectomy. ENCOUNTER: Initial ACUITY: 3 days PAIN SCORE: 9/10 LOCATION: Right upper quadrant MEASUREMENTS: LIVER: 22.5 cm length COMMON DUCT: Non-visualized RIGHT KIDNEY: 12.6 x 5.5 x 5.6 cm FINDINGS: LIVER: Diffusely increased echogenicity, likely steatosis. No focal mass or biliary ductal dilatation. COMMON DUCT: Not seen. GALLBLADDER: Contains no stones, demonstrates no wall thickening or pericholecystic fluid. PANCREAS: Not visualized RIGHT KIDNEY: No evidence of hydronephrosis, stone, or mass. CONCLUSION: Diffusely increased hepatic echogenicity consistent with steatosis. Luis E Torrez MD on February 21, 2017 at 23:52 Board Certified Radiologist. This report was verified electronically.
[2017-02-22] VITALS (19 sets, daily range): BP systolic 114–149; BP diastolic 70–92; PULSE 75–96; RESP 17–25; TEMP 97.4–99; O2SAT 95–100
[2017-02-22 01:19] LABS: BICARBONATE 24.4 MEQ/L (21.0-32.0); CALCIUM 8.1 MG/DL (8.5-10.1); CREATININE 0.78 MG/DL (0.60-1.30); MAGNESIUM 2.1 MG/DL (1.5-2.5)
[2017-02-22] MEDS: SODIUM CHLOR 0.9% 1000 ML INJ 1,000 ML IV SCH ×7 (02:15→22:15)
[2017-02-22] MEDS: DEXT 5%-NACL 0.9% 1000 ML INJ 1,000 ML IV SCH ×4 (03:11→20:01)
[2017-02-22] MEDS: HYDROmorphone HCL PF 1 MG/ML VIAL IV PUSH PRN ×7 (03:11→21:09)
[2017-02-22] MEDS: POTASSIUM CHLOR 20 MEQ PREMIX 100 ML IV PRN ×2 (03:44→03:45)
[2017-02-22] MEDS: CHLORHEXIDINE GLUCONATE 2 % 1 PACK (2 CLOTHS) TOP SCH (04:00)
[2017-02-22 05:50] LABS: AUTOMATED NEUTROPHIL # 10.2 TH/MM3 (1.8-7.7); BASOPHIL # 0.1 TH/MM3 (0-0.2); BASOPHIL % 0.4 % (0.0-2.0); EOSINOPHIL # 0.1 TH/MM3 (0-0.4); EOSINOPHIL % 0.8 % (0.0-4.0); HEMATOCRIT 39.9 % (39.0-51.0); LYMPH % 12.1 % (9.0-44.0); LYMPHOCYTE # 1.5 TH/MM3 (1.0-4.8); MEAN CELL VOLUME 82.2 FL (80.0-100.0); MEAN CORPUSCULAR HEMOGLOBIN 28.9 PG (27.0-34.0); MEAN CORPUSCULAR HGB CONC 35.1 % (32.0-36.0); MEAN PLATELET VOLUME 7.6 FL (7.0-11.0); MONO % 7.3 % (0.0-8.0); MONOCYTE # 0.9 TH/MM3 (0-0.9); NEUT % 79.4 % (16.0-70.0); PLATELET COUNT 161 TH/MM3 (150-450); RED BLOOD COUNT 4.85 MIL/MM3 (4.50-5.90); RED CELL DISTRIBUTION WIDTH 13.6 % (11.6-17.2); WHITE BLOOD COUNT 12.8 TH/MM3 (4.0-11.0)
[2017-02-22] MEDS: ONDANSETRON HCL 4 MG/2 ML VIAL IVP PRN ×2 (06:06→20:13)
[2017-02-22] MEDS: GEMFIBROZIL 600 MG TAB PO SCH ×2 (06:06→16:36)
[2017-02-22 06:12] LABS: AST (GOT) 20 U/L (15-37); BICARBONATE 22.3 MEQ/L (21.0-32.0); BLOOD UREA NITROGEN 6 MG/DL (7-18); CALCIUM 8.6 MG/DL (8.5-10.1); CHLORIDE 104 MEQ/L (98-107); CREATININE 0.75 MG/DL (0.60-1.30); GLOMERULAR FILTRATION RATE 115 ML/MIN (>89); GLUCOSE,RANDOM 128 MG/DL (74-106); LIPASE 409 U/L (73-393); SODIUM (NA) 135 MEQ/L (136-145)
[2017-02-22 06:15] LABS: ALKALINE PHOSPHATASE 58 U/L (45-117); ALT (GPT) 30 U/L (12-78); PHOSPHORUS 1.9 MG/DL (2.5-4.9); TOTAL BILIRUBIN ADULT 0.6 MG/DL (0.2-1.0); TOTAL PROTEIN 7.2 GM/DL (6.4-8.2)
[2017-02-22 07:06] LABS: TRIGLYCERIDES 1705 MG/DL (42-150)
[2017-02-22] MEDS: SODIUM CHLORIDE 0.9% FLUSH 10 ML FLUSH IV FLUSH SCH ×2 (09:00→21:09)
[2017-02-22] MEDS ORDERED: HYDROmorphone HCL PF 1 MG/ML VIAL IV PUSH PRN (09:30)
[2017-02-22] MEDS ORDERED: PROMETHAZINE HCL 25 MG SUPP RECTAL PRN (09:45)
--- NOTE | 2017-02-22 10:25 | HHI.PR ---
Subjective Remarks Follow-up for pancreatitis and hypertriglyceridemia Patient stated he feels a lot better but continues have abdominal pain. Pain is described as sharp, about 8 out of 10, improved with IV pain medication but only for 2 hours. Also patient continues to feel nauseous. He stated that he does not have any appetite. Objective Vitals Vital Signs Date Time Temp Pulse Resp B/P (MAP) Pulse Ox O2 Delivery O2 Flow Rate FiO2 02/22/17 06:00 89 02/22/17 04:00 83 02/22/17 04:00 99.0 85 20 124/70 (88) 95 02/22/17 02:00 75 02/22/17 00:00 98.7 89 17 149/92 (111) 97 02/22/17 00:00 89 02/21/17 22:00 83 02/21/17 20:00 98.5 88 14 132/93 (106) 98 02/21/17 20:00 88 02/21/17 18:24 18 02/21/17 18:00 97 02/21/17 16:00 86 02/21/17 16:00 97.9 86 20 124/81 (95) 98 02/21/17 12:00 96.3 78 16 109/85 (93) 98 I/O 02/21/17 02/21/17 02/21/17 02/22/17 02/22/17 02/22/17 07:00 15:00 23:00 07:00 15:00 23:00 Intake Total 1000 ml 2570 ml 1750.3 ml Output Total 300 ml 1000 ml Balance 1000 ml 2270 ml 750.3 ml Intake IV Total 1000 ml 2570 ml 1750.3 ml Output Urine Total 300 ml 1000 ml # Voids 0 # Bowel Movements 0 Result Diagram: 02/22/17 0500 02/22/17 0500 Objective Remarks GENERAL: Patient in no acute distress CARDIOVASCULAR: Regular rate and rhythm without murmurs, gallops, or rubs. RESPIRATORY: Breath sounds equal bilaterally. No accessory muscle use. GASTROINTESTINAL: Abdomen soft, non-tender, + TTP in midabdomen. A little guarded but no peritoneal signs. MUSCULOSKELETAL: No cyanosis, or edema. BACK: Nontender without obvious deformity. No CVA tenderness. Medications and IVs Current Medications Morphine Sulfate (Morphine Inj) 4 mg ONCE ONCE IV PUSH Last administered on 21:44; Start 02/20/17 at 21:15; Stop 02/20/17 at 21:16; Status DC Ondansetron HCl (Zofran Inj) 4 mg ONCE ONCE IVP Last administered on 21:45; Start 02/20/17 at 21:15; Stop 02/20/17 at 21:16; Status DC Sodium Chloride 1,000 ml @ 1,000 mls/hr Q1H IV Last administered on 21:44; Start 02/20/17 at 21:06; Stop 02/20/17 at 22:05; Status DC Sodium Chloride (NS Flush) 2 ml UNSCH PRN IV FLUSH FLUSH AFTER USING IV ACCESS Last administered on 02/20/17 21:45; Start 02/20/17 at 21:15; Stop 02/21/17 at 02:24; Status DC Morphine Sulfate (Morphine Inj) 4 mg ONCE ONCE IV PUSH Last administered on 23:17; Start 02/20/17 at 23:15; Stop 02/20/17 at 23:16; Status DC Hydromorphone HCl (Dilaudid Pf Inj) 1 mg ONCE ONCE IV PUSH Last administered on 02/21/17 02:25; Start 02/21/17 at 01:30; Stop 02/21/17 at 01:31; Status DC Sodium Chloride 1,000 ml @ 200 mls/hr Q5H IV Last administered on 02/21/17 12:40; Start 02/21/17 at 02:21 Sodium Chloride (NS Flush) 2 ml UNSCH PRN IV FLUSH FLUSH AFTER USING IV ACCESS Last administered on 02/21/17 09:20; Start 02/21/17 at 02:30 Sodium Chloride (NS Flush) 2 ml BID IV FLUSH Last administered on 02/21/17 20 :27; Start 02/21/17 at 09:00 Ondansetron HCl (Zofran Inj) 4 mg Q6H PRN IVP NAUSEA OR VOMITING Last administered on 02/22/17 06:06; Start 02/21/17 at 02:30 Naloxone HCl (Narcan Inj) 0.4 mg UNSCH PRN IV PUSH SEE LABEL COMMENTS; Start 02/21/17 at 02:30 Magnesium Hydroxide (Milk Of Magnesia Liq) 30 ml Q12H PRN PO Mild constipation ; Start 02/21/17 at 02:30 Sennosides (Senokot) 17.2 mg Q12H PRN PO Moderate constipation; Start at 02:30 Bisacodyl (Dulcolax Supp) 10 mg DAILY PRN RECTAL SEVERE CONSITIPATION; Start 02/21/17 at 02:30 Lactulose (Lactulose Liq) 30 ml DAILY PRN PO SEVERE CONSITIPATION; Start 02/21 at 02:30 Morphine Sulfate (Morphine Inj) 2 mg Q3H PRN IM pain 1-5; Start 02/21/17 at 04 :30; Stop 02/21/17 at 05:20; Status DC Morphine Sulfate (Morphine Inj) 4 mg Q3HR PRN IV PUSH pain 6-10; Start at 04:30; Stop 02/21/17 at 05:20; Status DC Insulin Aspart (NovoLOG SUPPLEMENTAL SCALE) 1 ACHS SLIDING SCALE SQ Last administered on 02/21/17 12:00; Start 02/21/17 at 08:00; Stop 02/21/17 at 14 :19; Status DC Hydromorphone HCl (Dilaudid Pf Inj) 1 mg Q4H PRN IV PUSH pain 6-10 Last administered on 02/21/17 09:17; Start 02/21/17 at 05:30; Stop 02/21/17 at 09 :29; Status DC Hydromorphone HCl (Dilaudid Pf Inj) 0.5 mg Q4H PRN IV PUSH pain 1-5; Start at 05:30; Stop 02/22/17 at 09:29; Status DC Hydromorphone HCl (Dilaudid Pf Inj) 1 mg Q3H PRN IV PUSH pain 6-10 Last administered on 02/22/17 09:15; Start 02/21/17 at 09:30; Stop 02/22/17 at 09 :29; Status DC Sodium Chloride 1,000 ml @ 250 mls/hr Q4H IV ; Start 02/21/17 at 14:15 Dextrose/Sodium Chloride 1,000 ml @ 200 mls/hr Q5H IV Last administered on 09:32; Start 02/21/17 at 14:15 Insulin Human Regular (NovoLIN R INJ) 10 units BOLUS ONCE IV PUSH Last administered on 02/21/17 14:15; Start 02/21/17 at 14:15; Stop 02/21/17 at 15 :01; Status DC Insulin Human Regular 100 units/ Sodium Chloride 100 ml @ 11.36 mls/ hr TITRATE PRN IV Blood Glucose Control Last administered on 02/21/17 23:57; Start 02/21/17 at 14:15; Stop 02/22/17 at 09:19; Status DC Potassium Chloride 100 ml @ 50 mls/hr Q2H PRN IV SEE LABEL COMMENTS; Start at 14:15 Potassium Chloride 100 ml @ 50 mls/hr Q2H PRN IV SEE LABEL COMMENTS; Start at 14:15 Potassium Chloride 100 ml @ 50 mls/hr Q2H PRN IV SEE LABEL COMMENTS Last administered on 02/22/17 03:45; Start 02/21/17 at 14:15 Potassium Chloride 100 ml @ 50 mls/hr Q2H PRN IV SEE LABEL COMMENTS; Start at 14:15 Sodium Bicarbonate (Sodium Bicarbonate 8.4% Inj) 100 meq UNSCH PRN IV PUSH SEE LABEL COMMENTS; Start 02/21/17 at 14:15 Sodium Bicarbonate (Sodium Bicarbonate 8.4% Inj) 50 meq UNSCH PRN IV PUSH SEE LABEL COMMENTS; Start 02/21/17 at 14:15 Sodium Phosphate 15 mmol/Sodium Chloride 105 ml @ 25 mls/hr UNSCH PRN IV SEE LABEL COMMENTS; Start 02/21/17 at 14:15 Miscellaneous Information 1 Q361D XX Last administered on 02/21/17 14:15; Start 02/21/17 at 14:15 Chlorhexidine Gluconate (Chlorhexidine 2% Cloth) 3 pack Taper DAILY@04 TOP Last administered on 02/22/17 04:00; Start 02/22/17 at 04:00; Stop 02/18/18 at 03:59 Chlorhexidine Gluconate (Chlorhexidine 2% Cloth) 3 pack UNSCH PRN TOP HYGIENIC CARE; Start 02/21/17 at 14:15 Gemfibrozil (Lopid) 600 mg BIDAC PO Last administered on 10/30/17at 06:06; Start 02/21/17 at 18:00 Insulin Human Regular 100 units/ Sodium Chloride 100 ml @ 11 mls/hr TITRATE PRN IV Blood Glucose Control; Start 02/22/17 at 09:30 Hydromorphone HCl (Dilaudid Pf Inj) 1 mg Q3H PRN IV PUSH pain 1-5; Start 02/22 at 09:30 Hydromorphone HCl (Dilaudid Pf Inj) 2 mg Q3H PRN IV PUSH pain 6-10; Start at 09:30 Promethazine HCl (Phenergan Supp) 25 mg Q4H PRN RECTAL nausea/vomiting ; Start 02/22/17 at 09:45 A/P Assessment and Plan Acute pancreatitis -CT with no signs of infection. -Likely secondary to hypertriglyceridemia. Initial triglyceride 4929 and now 1705. -Improving on the insulin drip. Continue with insulin drip. -Patient continues to be symptomatic but with improvement. Continue with IV fluids, antiemetics, and pain control. Since pain is not controlled will increase Dilaudid to 2mg to see if that helps control pain better. hypertriglyceridemia. - Initial triglyceride 4929 and now 1705. -patient on lopoid and insulin gtt. Diabetes mellitus -Uncontrolled. On insulin drip secondary to hypertriglyceridemia. /Hypovolemic Hyponatremia. -Sodium corrects to 130. -Improving. Continue to treat dehydration and diabetes. -We'll continue to monitor clinically. Mildly elevated CK CK 593. Likely secondary to dehydration. -Treat dehydration, pancreatitis as above. DVT prophylaxis -SCDs Nery Mckeon MD Feb 22, 2017 10:25
--- NOTE | 2017-02-22 12:04 | PD.ONC.PN ---
Subjective Subjective Remarks Afebrile overnight. Patient feeling much better today. Still with some epigastric pain. But weakness and blurred vision improved. Objective Data Date Time Temp Pulse Resp B/P (MAP) Pulse Ox O2 Delivery O2 Flow Rate FiO2 02/22/17 11:00 79 02/22/17 10:00 84 02/22/17 09:00 96 02/22/17 08:00 90 02/22/17 08:00 98.5 90 17 138/80 (99) 100 02/22/17 07:00 83 02/22/17 06:00 89 02/22/17 04:00 83 02/22/17 04:00 99.0 85 20 124/70 (88) 95 02/22/17 02:00 75 02/22/17 00:00 98.7 89 17 149/92 (111) 97 02/22/17 00:00 89 02/21/17 22:00 83 02/21/17 20:00 98.5 88 14 132/93 (106) 98 02/21/17 20:00 88 02/21/17 18:24 18 02/21/17 18:00 97 02/21/17 16:00 86 02/21/17 16:00 97.9 86 20 124/81 (95) 98 02/22/17 02/22/17 02/22/17 07:00 15:00 23:00 Intake Total 1750.3 ml Output Total 1000 ml Balance 750.3 ml Result Diagram: 02/22/17 0500 02/22/17 0500 Laboratory Results Laboratory Tests Test 02/21/17 15:00 02/21/17 16:15 02/21/17 17:39 02/22/17 00:14 Prothrombin Time 11.0 SEC Prothromb Time International Ratio 1.0 RATIO Activated Partial Thromboplast Time 30.1 SEC Fibrinogen 462 mg/dL Blood Urea Nitrogen 10 MG/DL 10 MG/DL 8 MG/DL Creatinine 0.75 MG/DL 0.81 MG/DL 0.78 MG/DL Random Glucose 214 MG/DL 218 MG/DL 162 MG/DL Calcium Level 8.1 MG/DL 8.3 MG/DL 8.1 MG/DL Sodium Level 133 MEQ/L 135 MEQ/L 134 MEQ/L Potassium Level 6.0 MEQ/L 3.6 MEQ/L 4.0 MEQ/L Chloride Level 100 MEQ/L 101 MEQ/L 103 MEQ/L Carbon Dioxide Level 24.2 MEQ/L 22.3 MEQ/L 24.4 MEQ/L Anion Gap 9 MEQ/L 12 MEQ/L 7 MEQ/L Estimat Glomerular Filtration Rate 115 ML/MIN 106 ML/MIN 110 ML/MIN Magnesium Level 2.1 MG/DL 2.1 MG/DL Nasal Screen MRSA (PCR) MRSA NOT DETECTED Phosphorus Level 1.8 MG/DL B-Hydroxybutyrate 0.17 MMOL/L Test 02/22/17 05:00 White Blood Count 12.8 TH/MM3 Red Blood Count 4.85 MIL/MM3 Hemoglobin 14.0 GM/DL Hematocrit 39.9 % Mean Corpuscular Volume 82.2 FL Mean Corpuscular Hemoglobin 28.9 PG Mean Corpuscular Hemoglobin Concent 35.1 % Red Cell Distribution Width 13.6 % Platelet Count 161 TH/MM3 Mean Platelet Volume 7.6 FL Neutrophils (%) (Auto) 79.4 % Lymphocytes (%) (Auto) 12.1 % Monocytes (%) (Auto) 7.3 % Eosinophils (%) (Auto) 0.8 % Basophils (%) (Auto) 0.4 % Neutrophils # (Auto) 10.2 TH/MM3 Lymphocytes # (Auto) 1.5 TH/MM3 Monocytes # (Auto) 0.9 TH/MM3 Eosinophils # (Auto) 0.1 TH/MM3 Basophils # (Auto) 0.1 TH/MM3 CBC Comment DIFF FINAL Differential Comment Blood Urea Nitrogen 6 MG/DL Creatinine 0.75 MG/DL Random Glucose 128 MG/DL Total Protein 7.2 GM/DL Albumin 3.0 GM/DL Calcium Level 8.6 MG/DL Phosphorus Level 1.9 MG/DL Alkaline Phosphatase 58 U/L Aspartate Amino Transf (AST/SGOT) 20 U/L Alanine Aminotransferase (ALT/SGPT) 30 U/L Total Bilirubin 0.6 MG/DL Sodium Level 135 MEQ/L Potassium Level 3.5 MEQ/L Chloride Level 104 MEQ/L Carbon Dioxide Level 22.3 MEQ/L Anion Gap 9 MEQ/L Estimat Glomerular Filtration Rate 115 ML/MIN Magnesium Level 2.1 MG/DL Triglycerides Level 1705 MG/DL Lipase 409 U/L Administered Medications Medications (Trade) Dose Ordered Sig/Biju Route PRN Reason Start Time Stop Time Status Last Admin Dose Admin Sodium Chloride 1,000 ml @ 200 mls/hr Q5H IV 02/21/17 02:21 02/21/17 12:40 Sodium Chloride (NS Flush) 2 ml UNSCH PRN IV FLUSH FLUSH AFTER USING IV ACCESS 02/21/17 02:30 02/21/17 09:20 Sodium Chloride (NS Flush) 2 ml BID IV FLUSH 02/21/17 09:00 02/22/17 09:00 Ondansetron HCl (Zofran Inj) 4 mg Q6H PRN IVP NAUSEA OR VOMITING 02/21/17 02:30 02/22/17 06:06 Dextrose/Sodium Chloride 1,000 ml @ 200 mls/hr Q5H IV 02/21/17 14:15 02/22/17 09:32 Potassium Chloride 100 ml @ 50 mls/hr Q2H PRN IV SEE LABEL COMMENTS 02/21/17 14:15 02/22/17 03:45 Miscellaneous Information 1 Q361D XX 02/21/17 14:15 02/21/17 14:15 Chlorhexidine Gluconate (Chlorhexidine 2% Cloth) 3 pack Taper DAILY@04 TOP 02/22/17 04:00 02/18/18 03:59 02/22/17 04:00 Gemfibrozil (Lopid) 600 mg BIDAC PO 02/21/17 18:00 02/22/17 06:06 Objective Remarks GENERAL: Middle aged male upright in bed in [facility]. SKIN: Warm and dry. HEAD: Normocephalic. EYES: No injection or drainage. NECK: Supple, trachea midline. CARDIOVASCULAR: Regular rate and rhythm RESPIRATORY: Breath sounds equal bilaterally. No accessory muscle use. GASTROINTESTINAL: Abdomen soft, non-tender, nondistended. EXTREMITIES: No cyanosis NEUROLOGICAL: awake and alert, normal speech. Assessment/Plan Problem List: (1) Pancreatitis, acute ICD Codes: K85.90 - Acute pancreatitis without necrosis or infection, unspecified Status: Acute Plan: -- due to hypertriglyceridemia, improved on insulin gtt --triglyceride level on 02/21-->4920. 02/22-->1705 --CT abdomen and pelvis shows fatty liver. The patient had a similar episode about a year ago. At that time, he was given insulin drip and his symptoms resolved. --Hematology consulted to consider plasmapheresis for the hypertriglyceridemia. However, triglycerides appear to have improved on insulin drip. patient will likely not need plasma exchange. Assessment 41-year-old male admitted with complaint of increased mid epigastric abdominal pain that started at 05:00 p.m. yesterday. He states that the pain was a 10/10 and is constant. It radiates to the back. He had nausea, vomiting and loose stools. He also had headache. He had a similar episode about a year-and-a- half ago. At that time, he was given insulin. His symptoms resolved. He has had diabetes but is not on any medications. h/o Diabetes mellitus not on any medication. Hyperlipidemia. Kidney stones. Pancreatitis. Plan 1. recommend continuing insulin gtt 2. continue supportive care 3. do not recommend plasma exchange at this time. Attending Statement The exam, history, and the medical decision-making described in the above note were completed with the assistance of the mid-level provider. I reviewed and agree with the findings presented. I attest that I had a [id number] encounter with the patient on the same day, and personally performed and documented my assessment and findings in the medical record. Feeling much better since started on insulin gtt. Triglyceride down to 1705. Lipase down to 405. Recommend starting triglyceride lowering agent. Likely will not need plasmapheresis. Problem Qualifiers (1) Pancreatitis, acute: Qualified Codes: K85.90 - Acute pancreatitis without necrosis or infection, unspecified Genny Briones Feb 22, 2017 12:04 Mehul Sanford MD Feb 22, 2017 15:22
[2017-02-22] MEDS: INSULIN REGULAR (IV INFUSION) 100 UNITS in SODIUM CHLORIDE 0.9% INJ 99 ML IV PRN (13:00)
[2017-02-22 13:19] LABS: BICARBONATE 20.2 MEQ/L (21.0-32.0); CALCIUM 8.5 MG/DL (8.5-10.1); CREATININE 0.7 MG/DL (0.60-1.30)
--- NOTE | 2017-02-22 14:40 | HHI.GIFU ---
Subjective Remarks Resting in bed. Feeling better, eyes no longer blurry. Still having some abdominal discomfort/pain, but improved. (Nikole Treviño) Objective Vitals I&O Vital Signs Date Time Temp Pulse Resp B/P (MAP) Pulse Ox O2 Delivery O2 Flow Rate FiO2 02/22/17 14:00 83 02/22/17 13:00 84 02/22/17 12:00 91 02/22/17 12:00 98.1 91 18 114/90 (98) 97 02/22/17 11:00 79 02/22/17 10:00 84 02/22/17 09:00 96 02/22/17 08:00 90 02/22/17 08:00 98.5 90 17 138/80 (99) 100 02/22/17 07:00 83 02/22/17 06:00 89 02/22/17 04:00 83 02/22/17 04:00 99.0 85 20 124/70 (88) 95 02/22/17 02:00 75 02/22/17 00:00 98.7 89 17 149/92 (111) 97 02/22/17 00:00 89 02/21/17 22:00 83 02/21/17 20:00 98.5 88 14 132/93 (106) 98 02/21/17 20:00 88 02/21/17 18:24 18 02/21/17 18:00 97 02/21/17 16:00 86 02/21/17 16:00 97.9 86 20 124/81 (95) 98 I/O 02/21/17 02/21/17 02/21/17 02/22/17 02/22/17 02/22/17 07:00 15:00 23:00 07:00 15:00 23:00 Intake Total 1000 ml 2570 ml 1750.3 ml Output Total 300 ml 1000 ml Balance 1000 ml 2270 ml 750.3 ml Intake IV Total 1000 ml 2570 ml 1750.3 ml Output Urine Total 300 ml 1000 ml # Voids 0 # Bowel Movements 0 Laboratory Laboratory Tests Test 02/21/17 15:00 02/21/17 16:15 02/21/17 17:39 02/22/17 00:14 Prothrombin Time 11.0 Prothromb Time International Ratio 1.0 Activated Partial Thromboplast Time 30.1 Fibrinogen 462 Blood Urea Nitrogen 10 10 8 Creatinine 0.75 0.81 0.78 Random Glucose 214 218 162 Calcium Level 8.1 8.3 8.1 Sodium Level 133 135 134 Potassium Level 6.0 3.6 4.0 Chloride Level 100 101 103 Carbon Dioxide Level 24.2 22.3 24.4 Anion Gap 9 12 7 Estimat Glomerular Filtration Rate 115 106 110 Magnesium Level 2.1 2.1 Nasal Screen MRSA (PCR) MRSA NOT DETECTED Phosphorus Level 1.8 B-Hydroxybutyrate 0.17 Test 02/22/17 05:00 02/22/17 12:25 White Blood Count 12.8 Red Blood Count 4.85 Hemoglobin 14.0 Hematocrit 39.9 Mean Corpuscular Volume 82.2 Mean Corpuscular Hemoglobin 28.9 Mean Corpuscular Hemoglobin Concent 35.1 Red Cell Distribution Width 13.6 Platelet Count 161 Mean Platelet Volume 7.6 Neutrophils (%) (Auto) 79.4 Lymphocytes (%) (Auto) 12.1 Monocytes (%) (Auto) 7.3 Eosinophils (%) (Auto) 0.8 Basophils (%) (Auto) 0.4 Neutrophils # (Auto) 10.2 Lymphocytes # (Auto) 1.5 Monocytes # (Auto) 0.9 Eosinophils # (Auto) 0.1 Basophils # (Auto) 0.1 CBC Comment DIFF FINAL Differential Comment Blood Urea Nitrogen 6 5 Creatinine 0.75 0.70 Random Glucose 128 192 Total Protein 7.2 Albumin 3.0 Calcium Level 8.6 8.5 Phosphorus Level 1.9 2.0 Alkaline Phosphatase 58 Aspartate Amino Transf (AST/SGOT) 20 Alanine Aminotransferase (ALT/SGPT) 30 Total Bilirubin 0.6 Sodium Level 135 132 Potassium Level 3.5 3.8 Chloride Level 104 103 Carbon Dioxide Level 22.3 20.2 Anion Gap 9 9 Estimat Glomerular Filtration Rate 115 125 Magnesium Level 2.1 2.0 Triglycerides Level 1705 Lipase 409 B-Hydroxybutyrate 0.11 Imaging Last Impressions Gall Bladder Ultrasound 02/21/17 0000 Signed Impressions: Service Date/Time: Tuesday, February 21, 2017 21:06 - CONCLUSION: Diffusely increased hepatic echogenicity consistent with steatosis. Luis E Torrez MD Abdomen/Pelvis CT 02/20/17 2215 Signed Impressions: Service Date/Time: Monday, February 20, 2017 23:31 - CONCLUSION: 1. No obstruction inflammatory changes or other acute abnormality. 2. Enlarged and fatty infiltrated liver again noted. 3. Fat-containing umbilical and bilateral inguinal hernias, unchanged. 4. Sigmoid colon diverticulosis without diverticulitis. 5. A tiny, nonspecific pleural effusion is seen of the right lung base. 6. 2 mm nonobstructing stone of the left kidney unchanged. Luis E Ross MD Physical Exam HEENT: Normocephalic; atraumatic; no jaundice. CHEST: CTA CARDIAC: RRR. ABDOMEN: Soft, obese, nondistended, mild-mod epigastric/LUQ discomfort; no hepatosplenomegaly; bowel sounds are present in all four quadrants. EXTREMITIES: No clubbing, cyanosis, or edema. SKIN: Normal; no rash; no jaundice. 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 (Nikole Treviño) Assessment and Plan Plan ASSESSMENT: - Acute pancreatitis, most likely secondary to hypertriglyceridemia. Patient denies ETOH use. Reports history of pancreatitis x 1 episode, 1 year ago. Reports epigastric tenderness. CT Abdomen (02/20/17)--1. No obstruction inflammatory changes or other acute abnormality. 2. Enlarged and fatty infiltrated liver again noted. 3. Fat-containing umbilical and bilateral inguinal hernias, unchanged. 4. Sigmoid colon diverticulosis without diverticulitis. 5. A tiny, nonspecific pleural effusion is seen of the right lung base. 6. 2 mm nonobstructing stone of the left kidney unchanged. Lipase 988---> 409. Triglycerides 4929 on admission, 1705. Hematology following, on insulin gtt, likely will not need plasma pheresis. NPO. - Severe hypertriglyceridemia. On insulin gtt. Improved, down to 1705. Hematology following, but likely will not need plasma pheresis - DM, not on any medication at home. Reports recent weight loss of 60 lbs. Insulin sliding scale. PLAN: - Ice chips. - IVF fluids - On insulin Gtt - Cont. Lopid - Monitor labs - Supportive care - Further recommendations to follow based on results of above - Pt seen and examined by Dr. Solorio and myself and this note is written on her behalf (Nikole Treviño) Physician Comments seen, examined agree with above (Latasha Solorio MD) Nikole Treviño Feb 22, 2017 14:39 Latasha Solorio MD Feb 22, 2017 17:53
[2017-02-22 16:38] LABS: HEMOGLOBIN A1C 11.8 % (4.3-6.0)
[2017-02-23] VITALS (20 sets, daily range): BP systolic 117–135; BP diastolic 70–94; PULSE 74–95; RESP 11–23; TEMP 98–98.3; O2SAT 95–99
[2017-02-23] MEDS: SODIUM CHLORIDE 0.9% FLUSH 10 ML FLUSH IV FLUSH PRN ×5 (00:03→23:46)
[2017-02-23] MEDS: HYDROmorphone HCL PF 1 MG/ML VIAL IV PUSH PRN ×4 (00:03→08:49)
[2017-02-23] MEDS: SODIUM CHLOR 0.9% 1000 ML INJ 1,000 ML IV SCH ×11 (00:06→22:15)
[2017-02-23] MEDS: DEXT 5%-NACL 0.9% 1000 ML INJ 1,000 ML IV SCH ×5 (01:03→22:36)
[2017-02-23] MEDS: CHLORHEXIDINE GLUCONATE 2 % 1 PACK (2 CLOTHS) TOP SCH (04:00)
--- NOTE | 2017-02-23 08:42 | HHI.GIFU ---
Subjective Remarks Resting in bed. States pain is improving. Still has intermittent LUQ pain, especially with deep inspiration or movement. Mild nausea last night, none today. (Nikole Treviño) Objective Vitals I&O Vital Signs Date Time Temp Pulse Resp B/P (MAP) Pulse Ox O2 Delivery O2 Flow Rate FiO2 02/23/17 06:00 80 02/23/17 05:00 98.2 75 17 98 02/23/17 04:02 78 14 117/77 (90) 98 02/23/17 04:00 84 02/23/17 02:00 84 02/23/17 01:03 18 02/23/17 00:00 90 02/23/17 00:00 90 21 122/78 (93) 98 02/22/17 22:00 85 02/22/17 20:01 97.4 89 25 145/88 (107) 100 02/22/17 20:00 86 02/22/17 18:00 96 02/22/17 17:00 84 02/22/17 16:00 98.0 86 17 128/85 (99) 98 02/22/17 16:00 86 02/22/17 15:00 90 02/22/17 14:00 83 02/22/17 13:00 84 02/22/17 12:00 91 02/22/17 12:00 98.1 91 18 114/90 (98) 97 02/22/17 11:00 79 02/22/17 10:00 84 02/22/17 09:00 96 I/O 02/22/17 02/22/17 02/22/17 02/23/17 02/23/17 02/23/17 07:00 15:00 23:00 07:00 15:00 23:00 Intake Total 1750.3 ml 2100 ml 1000 ml 2000 ml Output Total 1000 ml 1700 ml 1450 ml Balance 750.3 ml 2100 ml -700 ml 550 ml Intake IV Total 1750.3 ml 2100 ml 1000 ml 2000 ml Output Urine Total 1000 ml 1700 ml 1450 ml Laboratory Laboratory Tests Test 02/22/17 12:25 02/23/17 06:54 Blood Urea Nitrogen 5 Creatinine 0.70 Random Glucose 192 Calcium Level 8.5 Phosphorus Level 2.0 Magnesium Level 2.0 Sodium Level 132 Potassium Level 3.8 Chloride Level 103 Carbon Dioxide Level 20.2 Anion Gap 9 Estimat Glomerular Filtration Rate 125 B-Hydroxybutyrate 0.11 Triglycerides Level 955 Imaging Last Impressions Gall Bladder Ultrasound 02/21/17 0000 Signed Impressions: Service Date/Time: Tuesday, February 21, 2017 21:06 - CONCLUSION: Diffusely increased hepatic echogenicity consistent with steatosis. Luis E Torrez MD Abdomen/Pelvis CT 02/20/17 2215 Signed Impressions: Service Date/Time: Monday, February 20, 2017 23:31 - CONCLUSION: 1. No obstruction inflammatory changes or other acute abnormality. 2. Enlarged and fatty infiltrated liver again noted. 3. Fat-containing umbilical and bilateral inguinal hernias, unchanged. 4. Sigmoid colon diverticulosis without diverticulitis. 5. A tiny, nonspecific pleural effusion is seen of the right lung base. 6. 2 mm nonobstructing stone of the left kidney unchanged. Luis E Ross MD Physical Exam HEENT: Normocephalic; atraumatic; no jaundice. CHEST: CTA CARDIAC: RRR. ABDOMEN: Soft, obese, nondistended, mild-mod epigastric/LUQ discomfort; no hepatosplenomegaly; bowel sounds are present in all four quadrants. EXTREMITIES: No clubbing, cyanosis, or edema. SKIN: Normal; no rash; no jaundice. MANAGER TECHNICAL TRAINING: No focal deficits; alert and oriented times three. (Nikole Treviño) Assessment and Plan Plan ASSESSMENT: - Acute pancreatitis, most likely secondary to hypertriglyceridemia. Patient denies ETOH use. Reports history of pancreatitis x 1 episode, 1 year ago. Reports epigastric tenderness. CT Abdomen (02/20/17)--1. No obstruction inflammatory changes or other acute abnormality. 2. Enlarged and fatty infiltrated liver again noted. 3. Fat-containing umbilical and bilateral inguinal hernias, unchanged. 4. Sigmoid colon diverticulosis without diverticulitis. 5. A tiny, nonspecific pleural effusion is seen of the right lung base. 6. 2 mm nonobstructing stone of the left kidney unchanged. Lipase 988---> 409 yesterday. Triglycerides 4929 on admission, now 955. Hematology following, on insulin gtt, likely will not need plasma pheresis. Pain improving. Start clear liquids. - Severe hypertriglyceridemia. On insulin gtt. Improved, down to 955. Hematology following, but likely will not need plasma pheresis - DM, not on any medication at home. Reports recent weight loss of 60 lbs. Insulin sliding scale. PLAN: - Clear liquids - Add PPI - IVF fluids - On insulin Gtt - Cont. Lopid - Monitor labs - Supportive care - Further recommendations to follow based on results of above - Pt seen and examined by Dr. Solorio and myself and this note is written on her behalf (Nikole Treviño) Nikole Treviño Feb 23, 2017 08:42 Latasha Solorio MD Feb 23, 2017 19:32
[2017-02-23] MEDS: GEMFIBROZIL 600 MG TAB PO SCH ×2 (08:47→17:32)
[2017-02-23] MEDS: SODIUM CHLORIDE 0.9% FLUSH 10 ML FLUSH IV FLUSH SCH ×2 (08:48→19:30)
[2017-02-23] MEDS: PANTOPRAZOLE SOD 40 MG DELAYED RELEASE TAB PO SCH (09:18)
--- NOTE | 2017-02-23 10:03 | HHI.PR ---
Subjective Remarks Patient reports he is feeling better. Still having pain. Dilaudid is helping but not lasting 3 hrs. DW RN. Recalls that most of his family from cholesterol and heart related problems. Objective Vitals Vital Signs Date Time Temp Pulse Resp B/P (MAP) Pulse Ox O2 Delivery O2 Flow Rate FiO2 02/23/17 06:00 80 02/23/17 05:00 98.2 75 17 98 02/23/17 04:02 78 14 117/77 (90) 98 02/23/17 04:00 84 02/23/17 02:00 84 02/23/17 01:03 18 02/23/17 00:00 90 02/23/17 00:00 90 21 122/78 (93) 98 02/22/17 22:00 85 02/22/17 20:01 97.4 89 25 145/88 (107) 100 02/22/17 20:00 86 02/22/17 18:00 96 02/22/17 17:00 84 02/22/17 16:00 98.0 86 17 128/85 (99) 98 02/22/17 16:00 86 02/22/17 15:00 90 02/22/17 14:00 83 02/22/17 13:00 84 02/22/17 12:00 91 02/22/17 12:00 98.1 91 18 114/90 (98) 97 02/22/17 11:00 79 02/22/17 10:00 84 I/O 02/22/17 02/22/17 02/22/17 02/23/17 02/23/17 02/23/17 07:00 15:00 23:00 07:00 15:00 23:00 Intake Total 1750.3 ml 2100 ml 1000 ml 2000 ml Output Total 1000 ml 1700 ml 1450 ml Balance 750.3 ml 2100 ml -700 ml 550 ml Intake IV Total 1750.3 ml 2100 ml 1000 ml 2000 ml Output Urine Total 1000 ml 1700 ml 1450 ml Result Diagram: 02/22/17 0500 02/22/17 1225 Imaging Last Impressions Gall Bladder Ultrasound 02/21/17 0000 Signed Impressions: Service Date/Time: Tuesday, February 21, 2017 21:06 - CONCLUSION: Diffusely increased hepatic echogenicity consistent with steatosis. Luis E Torrez MD Abdomen/Pelvis CT 02/20/17 2212 Signed Impressions: Service Date/Time: Monday, February 20, 2017 23:31 - CONCLUSION: 1. No obstruction inflammatory changes or other acute abnormality. 2. Enlarged and fatty infiltrated liver again noted. 3. Fat-containing umbilical and bilateral inguinal hernias, unchanged. 4. Sigmoid colon diverticulosis without diverticulitis. 5. A tiny, nonspecific pleural effusion is seen of the right lung base. 6. 2 mm nonobstructing stone of the left kidney unchanged. Luis E Ross MD Objective Remarks GENERAL: Obese male in no apparent distress. CARDIOVASCULAR: Normal rate and regular rhythm without murmurs, gallops, or rubs. RESPIRATORY: Good respiratory efforts. Breath sounds equal and clear to auscultation bilaterally. GASTROINTESTINAL: Abdomen soft, mild tenderness to palpation in the mid epigastric and bilateral upper quadrants. MUSCULOSKELETAL: Extremities without cyanosis, or edema. NEURO: Alert & Oriented x4 to person, place, time, situation. Moves all ext x4 PSYCH: Appropriate mood and affect. A/P Assessment and Plan 41-year-old male admitted with acute pancreatitis likely secondary to severe hypertriglyceridemia. Acute pancreatitis -CT with no signs of infection. - Lipase improving, down to 400 -Likely secondary to hypertriglyceridemia. Initial triglyceride 4929, trending down. 900 today. -Improving on the insulin drip. Continue with insulin drip. Plan to discontinue once triglyceride falls below 500 or significant improvement in symptoms -Patient continues to be symptomatic but with improvement. Continue with IV fluids, antiemetics, and pain control. - Change Dilaudid to every 2 hours as needed for better pain control. - Appreciate GI following. hypertriglyceridemia. Pt indicate that most of his family early from cholesterol or heart related issues. - Initial triglyceride 4929 and now 900. Appreciate Hematology following. Did not require apheresis. - Patient on gemfibrozil, insulin gtt, and d5 NS - Advised outpatient testing for genetic disorders Diabetes mellitus: Newly diagnosed -Uncontrolled. On insulin drip secondary to hypertriglyceridemia. - Consult breastfeeding educator - Hemoglobin A1c of 11. Will need insulin on discharge. /Hypovolemic Hyponatremia. -Sodium Improving. Continue to treat dehydration and diabetes. -We'll continue to monitor clinically. DVT prophylaxis -Taylor Epstein MD Feb 23, 2017 10:03
[2017-02-23] MEDS: INSULIN REGULAR (IV INFUSION) 100 UNITS in SODIUM CHLORIDE 0.9% INJ 99 ML IV PRN (11:55)
[2017-02-23] MEDS: HYDROmorphone HCL PF 2 MG/ML VIAL IV PUSH PRN ×6 (12:28→23:45)
--- NOTE | 2017-02-23 13:17 | PD.ONC.PN ---
Subjective Subjective Remarks Afebrile overnight. Patient resting in bed in nad. Stomach feeling improved. No more blurred vision. tolerating sips of clears. Objective Data Date Time Temp Pulse Resp B/P (MAP) Pulse Ox O2 Delivery O2 Flow Rate FiO2 02/23/17 06:00 80 02/23/17 05:00 98.2 75 17 98 02/23/17 04:02 78 14 117/77 (90) 98 02/23/17 04:00 84 02/23/17 02:00 84 02/23/17 01:03 18 02/23/17 00:00 90 02/23/17 00:00 90 21 122/78 (93) 98 02/22/17 22:00 85 02/22/17 20:01 97.4 89 25 145/88 (107) 100 02/22/17 20:00 86 02/22/17 18:00 96 02/22/17 17:00 84 02/22/17 16:00 98.0 86 17 128/85 (99) 98 02/22/17 16:00 86 02/22/17 15:00 90 02/22/17 14:00 83 02/23/17 02/23/17 02/23/17 07:00 15:00 23:00 Intake Total 2000 ml Output Total 1450 ml 425 ml Balance 550 ml -425 ml Result Diagram: 02/22/17 0500 02/22/17 1225 Laboratory Results Laboratory Tests Test 02/23/17 06:54 Triglycerides Level 955 MG/DL Thyroid Stimulating Hormone 3rd Gen 3.480 uIU/ML Administered Medications Medications (Trade) Dose Ordered Sig/Biju Route PRN Reason Start Time Stop Time Status Last Admin Dose Admin Sodium Chloride 1,000 ml @ 200 mls/hr Q5H IV 02/21/17 02:21 02/21/17 12:40 Sodium Chloride (NS Flush) 2 ml UNSCH PRN IV FLUSH FLUSH AFTER USING IV ACCESS 02/21/17 02:30 02/23/17 06:02 Sodium Chloride (NS Flush) 2 ml BID IV FLUSH 02/21/17 09:00 02/23/17 08:48 Ondansetron HCl (Zofran Inj) 4 mg Q6H PRN IVP NAUSEA OR VOMITING 02/21/17 02:30 02/22/17 20:13 Dextrose/Sodium Chloride 1,000 ml @ 200 mls/hr Q5H IV 02/21/17 14:15 02/23/17 11:55 Potassium Chloride 100 ml @ 50 mls/hr Q2H PRN IV SEE LABEL COMMENTS 02/21/17 14:15 02/22/17 03:45 Miscellaneous Information 1 Q361D XX 02/21/17 14:15 02/21/17 14:15 Chlorhexidine Gluconate (Chlorhexidine 2% Cloth) 3 pack Taper DAILY@04 TOP 02/22/17 04:00 02/18/18 03:59 02/23/17 04:00 Gemfibrozil (Lopid) 600 mg BIDAC PO 02/21/17 18:00 02/23/17 08:47 Insulin Human Regular 100 units/ Sodium Chloride 100 ml @ 11 mls/hr TITRATE PRN IV Blood Glucose Control 02/22/17 09:30 02/23/17 11:55 Pantoprazole Sodium (Protonix) 40 mg DAILY PO 02/23/17 09:00 02/23/17 09:18 Hydromorphone HCl (Dilaudid Pf Inj) 2 mg Q2H PRN IV PUSH PAIN SCALE 6 TO 10 02/23/17 10:15 02/23/17 12:28 Objective Remarks GENERAL: Middle aged male supine in bed in nad. SKIN: Warm and dry. HEAD: Normocephalic. EYES: No injection or drainage. NECK: Supple, trachea midline. CARDIOVASCULAR: Regular rate and rhythm RESPIRATORY: Breath sounds equal bilaterally. No accessory muscle use. GASTROINTESTINAL: Abdomen soft, mild epigastric pain, nondistended. EXTREMITIES: No cyanosis NEUROLOGICAL: awake and alert, normal speech. Assessment/Plan Problem List: (1) Pancreatitis, acute ICD Codes: K85.90 - Acute pancreatitis without necrosis or infection, unspecified Status: Acute Plan: -- due to hypertriglyceridemia, improved on insulin gtt --triglyceride level on 02/21-->4920. 02/22-->1705 --CT abdomen and pelvis shows fatty liver. The patient had a similar episode about a year ago. At that time, he was given insulin drip and his symptoms resolved. --Hematology consulted to consider plasmapheresis for the hypertriglyceridemia. However, triglycerides appear to have improved on insulin drip. patient will likely not need plasma exchange. Assessment 41-year-old male admitted with pancreatitis, hyperlipidemia. h/o Diabetes mellitus not on any medication. Hyperlipidemia. Kidney stones. Pancreatitis. Plan 1. recommend continuing current care 2. do no recommend plasma exchange. 3. hematology will sign off. please call or reconsult if needed. Attending Statement The exam, history, and the medical decision-making described in the above note were completed with the assistance of the mid-level provider. I reviewed and agree with the findings presented. I attest that I had a [id number] encounter with the patient on the same day, and personally performed and documented my assessment and findings in the medical record. Pt continue to feel better. TG down to about 900. Improving with current treatment. No need for plasmapheresis. We will sign off. Problem Qualifiers (1) Pancreatitis, acute: Qualified Codes: K85.90 - Acute pancreatitis without necrosis or infection, unspecified Genny Briones Feb 23, 2017 13:17 Mehul Sanford MD Feb 23, 2017 16:33
[2017-02-24] VITALS (9 sets, daily range): BP systolic 122–162; BP diastolic 73–91; PULSE 70–87; RESP 14–30; TEMP 97.4–98.2; O2SAT 87–100
[2017-02-24] MEDS: SODIUM CHLOR 0.9% 1000 ML INJ 1,000 ML IV SCH ×7 (01:29→13:26)
[2017-02-24] MEDS: SODIUM CHLORIDE 0.9% FLUSH 10 ML FLUSH IV FLUSH PRN ×3 (02:06→06:07)
[2017-02-24] MEDS: HYDROmorphone HCL PF 2 MG/ML VIAL IV PUSH PRN ×4 (02:06→08:21)
[2017-02-24] MEDS: CHLORHEXIDINE GLUCONATE 2 % 1 PACK (2 CLOTHS) TOP SCH (04:00)
[2017-02-24] MEDS: DEXT 5%-NACL 0.9% 1000 ML INJ 1,000 ML IV SCH ×2 (04:15→08:25)
[2017-02-24] MEDS: GEMFIBROZIL 600 MG TAB PO SCH ×2 (07:05→15:40)
[2017-02-24 07:12] LABS: ALBUMIN 2.8 GM/DL (3.4-5.0); BICARBONATE 24.2 MEQ/L (21.0-32.0); CALCIUM 8.4 MG/DL (8.5-10.1); CREATININE 0.71 MG/DL (0.60-1.30)
[2017-02-24 07:14] LABS: DIRECT BILIRUBIN ADULT 0.3 MG/DL (0.0-0.2)
[2017-02-24 07:17] LABS: INDIRECT BILIRUBIN 0.6 MG/DL (0.0-0.8); TOTAL BILIRUBIN ADULT 0.9 MG/DL (0.2-1.0)
[2017-02-24] MEDS: PANTOPRAZOLE SOD 40 MG DELAYED RELEASE TAB PO SCH (08:20)
[2017-02-24] MEDS: SODIUM CHLORIDE 0.9% FLUSH 10 ML FLUSH IV FLUSH SCH ×2 (08:21→20:08)
--- NOTE | 2017-02-24 09:06 | HHI.PR ---
Subjective Remarks Feeling better. Pain is better. Tolerating clear diet. He is hoping to go home soon. Objective Vitals Vital Signs Date Time Temp Pulse Resp B/P (MAP) Pulse Ox O2 Delivery O2 Flow Rate FiO2 02/24/17 06:00 71 02/24/17 04:00 98.1 87 23 96 02/24/17 04:00 87 02/24/17 02:00 76 02/24/17 00:00 73 02/24/17 00:00 98.2 73 15 96 02/23/17 22:00 94 02/23/17 20:00 98.3 84 20 97 02/23/17 20:00 84 02/23/17 18:00 79 02/23/17 17:00 83 02/23/17 16:00 74 02/23/17 16:00 98.3 74 16 134/70 (91) 95 02/23/17 15:00 85 02/23/17 14:00 95 02/23/17 13:00 93 02/23/17 12:00 84 02/23/17 12:00 98.1 84 11 99 02/23/17 11:00 88 02/23/17 10:00 93 I/O 02/23/17 02/23/17 02/23/17 02/24/17 02/24/17 02/24/17 07:00 15:00 23:00 07:00 15:00 23:00 Intake Total 2000 ml 1000 ml 2700 ml 1720 ml Output Total 1450 ml 425 ml 1600 ml 1450 ml 250 ml Balance 550 ml 575 ml 1100 ml 270 ml -250 ml Intake Oral 700 ml 720 ml IV Total 2000 ml 1000 ml 2000 ml 1000 ml Output Urine Total 1450 ml 425 ml 1600 ml 1450 ml 250 ml Result Diagram: 02/22/17 0500 02/24/17 0617 Objective Remarks GENERAL: Obese male in no apparent distress. CARDIOVASCULAR: Normal rate and regular rhythm without murmurs, gallops, or rubs. RESPIRATORY: Good respiratory efforts. Breath sounds equal and clear to auscultation bilaterally. GASTROINTESTINAL: Abdomen soft, mild tenderness to palpation in the mid epigastric and bilateral upper quadrants. MUSCULOSKELETAL: Extremities without cyanosis, or edema. NEURO: Alert & Oriented x4 to person, place, time, situation. Moves all ext x4 PSYCH: Appropriate mood and affect. A/P Assessment and Plan 41-year-old male admitted with acute pancreatitis likely secondary to severe hypertriglyceridemia. Acute pancreatitis -CT with no signs of infection. - Lipase normalized -Likely secondary to hypertriglyceridemia. Initial triglyceride 4929, trending down. 550 today. -Marked improvement with insulin drip. DC insulin drip and transition to SSI with accucheck - Change IV fluid to NS and decrease rate, antiemetics, and pain control. - Change pain meds to Percocet and Dilaudid for breakthrough - Appreciate GI following. hypertriglyceridemia. Pt indicate that most of his family early from cholesterol or heart related issues. - Initial triglyceride 4929 and now 550. Appreciate Hematology following. Did not require apheresis. - Patient on gemfibrozil, follow triglycerides - Advised outpatient testing for genetic disorders Diabetes mellitus: Newly diagnosed -Uncontrolled. s/p insulin drip secondary to hypertriglyceridemia. - Start Levemir 12 units BID. SSI with accuchecks. - certified diabetes educator following patient - Hemoglobin A1c of 11. Will need insulin on discharge. DVT prophylaxis -SCDs Discharge Planning OK to transfer to floor. Taylor Alba MD Feb 24, 2017 09:06
[2017-02-24] MEDS ORDERED: DEXTROSE 50% IN WATER 50 ML VIAL(D50) IV PUSH PRN (09:15)
[2017-02-24] MEDS ORDERED: ACETAMINOPHEN/HYDROcodone 325 MG/7.5 MG TAB PO PRN (09:15)
[2017-02-24] MEDS ORDERED: GLUCAGON 1 MG/ML VIAL OTHER PRN (09:15)
--- NOTE | 2017-02-24 09:38 | HHI.GIFU ---
Subjective Remarks Resting in bed. States his abdominal pain has improved, but still having some mild epigastric discomfort. (Nikole Treviño) Objective Vitals I&O Vital Signs Date Time Temp Pulse Resp B/P (MAP) Pulse Ox O2 Delivery O2 Flow Rate FiO2 02/24/17 06:00 71 02/24/17 04:00 98.1 87 23 96 02/24/17 04:00 87 02/24/17 02:00 76 02/24/17 00:00 73 02/24/17 00:00 98.2 73 15 96 02/23/17 22:00 94 02/23/17 20:00 98.3 84 20 97 02/23/17 20:00 84 02/23/17 18:00 79 02/23/17 17:00 83 02/23/17 16:00 74 02/23/17 16:00 98.3 74 16 134/70 (91) 95 02/23/17 15:00 85 02/23/17 14:00 95 02/23/17 13:00 93 02/23/17 12:00 84 02/23/17 12:00 98.1 84 11 99 02/23/17 11:00 88 02/23/17 10:00 93 I/O 02/23/17 02/23/17 02/23/17 02/24/17 02/24/17 02/24/17 07:00 15:00 23:00 07:00 15:00 23:00 Intake Total 2000 ml 1000 ml 2700 ml 1720 ml 255 ml Output Total 1450 ml 425 ml 1600 ml 1450 ml 250 ml Balance 550 ml 575 ml 1100 ml 270 ml 5 ml Intake Oral 700 ml 720 ml IV Total 2000 ml 1000 ml 2000 ml 1000 ml 255 ml Output Urine Total 1450 ml 425 ml 1600 ml 1450 ml 250 ml Laboratory Laboratory Tests Test 02/24/17 06:17 Blood Urea Nitrogen 5 Creatinine 0.71 Random Glucose 196 Total Protein 7.0 Albumin 2.8 Calcium Level 8.4 Alkaline Phosphatase 60 Aspartate Amino Transf (AST/SGOT) 33 Alanine Aminotransferase (ALT/SGPT) 35 Total Bilirubin 0.9 Direct Bilirubin 0.3 Sodium Level 137 Potassium Level 3.5 Chloride Level 105 Carbon Dioxide Level 24.2 Anion Gap 8 Estimat Glomerular Filtration Rate 123 Indirect Bilirubin 0.6 Triglycerides Level 558 Lipase 200 Imaging Last Impressions Gall Bladder Ultrasound 02/21/17 0000 Signed Impressions: Service Date/Time: Tuesday, February 21, 2017 21:06 - CONCLUSION: Diffusely increased hepatic echogenicity consistent with steatosis. Luis E Torrez MD Abdomen/Pelvis CT 02/20/17 2215 Signed Impressions: Service Date/Time: Monday, February 20, 2017 23:31 - CONCLUSION: 1. No obstruction inflammatory changes or other acute abnormality. 2. Enlarged and fatty infiltrated liver again noted. 3. Fat-containing umbilical and bilateral inguinal hernias, unchanged. 4. Sigmoid colon diverticulosis without diverticulitis. 5. A tiny, nonspecific pleural effusion is seen of the right lung base. 6. 2 mm nonobstructing stone of the left kidney unchanged. Luis E Ross MD Physical Exam HEENT: Normocephalic; atraumatic; no jaundice. CHEST: CTA CARDIAC: RRR. ABDOMEN: Soft, obese, nondistended, mild-mod epigastric/LUQ discomfort; no hepatosplenomegaly; bowel sounds are present in all four quadrants. EXTREMITIES: No clubbing, cyanosis, or edema. SKIN: Normal; no rash; no jaundice. PANTRY GOODS WORKER: No focal deficits; alert and oriented times three. (Nikole Treviño [facility]) Assessment and Plan Plan ASSESSMENT: - Acute pancreatitis, most likely secondary to hypertriglyceridemia. Patient denies ETOH use. Reports history of pancreatitis x 1 episode, 1 year ago. Reports epigastric tenderness. CT Abdomen (02/20/17)--1. No obstruction inflammatory changes or other acute abnormality. 2. Enlarged and fatty infiltrated liver again noted. 3. Fat-containing umbilical and bilateral inguinal hernias, unchanged. 4. Sigmoid colon diverticulosis without diverticulitis. 5. A tiny, nonspecific pleural effusion is seen of the right lung base. 6. 2 mm nonobstructing stone of the left kidney unchanged. Lipase 200. Triglycerides 4929 on admission, now 558. Hematology following, on insulin gtt until triglycerides are < 500. He is improving and will likely not need plasma pheresis. Pain improving. Tolerating diet, will advance to full liquids - Severe hypertriglyceridemia. On insulin gtt. Improved, down to 558. Hematology following, but likely will not need plasma pheresis - DM, not on any medication at home. Reports recent weight loss of 60 lbs. Insulin sliding scale. PLAN: - Low fat diet - Cont. PPI - IVF fluids - On insulin Gtt per hematology - Cont. Lopid - Monitor labs - Supportive care - Pt seen and examined by Dr. Solorio and myself and this note is written on her behalf (Nikole Treviño) Nikole Treviño Feb 24, 2017 09:38 Latasha Solorio MD Feb 24, 2017 19:55
[2017-02-24] MEDS: NS + KCL 20 MEQ INJ 1,000 ML IV SCH ×2 (09:54→17:30)
[2017-02-24] MEDS: INSULIN DETEMIR 100 UNITS/ML VIAL SQ SCH ×2 (09:54→20:07)
[2017-02-24 11:07] LABS: PHOSPHORUS 2.8 MG/DL (2.5-4.9)
[2017-02-24] MEDS: HYDROmorphone HCL PF 1 MG/ML VIAL IV PUSH PRN ×3 (11:58→20:06)
[2017-02-24] MEDS: INSULIN ASPART SUPPLEMENTAL SCALE SQ SCH ×3 (12:00→20:07)
[2017-02-24] MEDS: oxyCODONE/ACETAMINOPHEN 7.5 MG/325 MG TAB PO PRN ×3 (13:29→22:23)
[2017-02-24 21:16] LABS: BICARBONATE 24.6 MEQ/L (21.0-32.0); CREATININE 0.81 MG/DL (0.60-1.30); PHOSPHORUS 2.5 MG/DL (2.5-4.9)
[2017-02-25] MEDS: HYDROmorphone HCL PF 1 MG/ML VIAL IV PUSH PRN ×4 (00:16→13:33)
[2017-02-25] MEDS: oxyCODONE/ACETAMINOPHEN 7.5 MG/325 MG TAB PO PRN ×2 (03:19→07:10)
[2017-02-25] MEDS: CHLORHEXIDINE GLUCONATE 2 % 1 PACK (2 CLOTHS) TOP SCH (03:22)
[2017-02-25] MEDS: NS + KCL 20 MEQ INJ 1,000 ML IV SCH (04:29)
[2017-02-25 04:32] VITALS: BP 145/94; PULSE 74; RESP 18; TEMP 97.9; O2SAT 92
[2017-02-25 06:09] LABS: BICARBONATE 24.6 MEQ/L (21.0-32.0); CALCIUM 8.7 MG/DL (8.5-10.1); CREATININE 0.83 MG/DL (0.60-1.30)
[2017-02-25] MEDS: GEMFIBROZIL 600 MG TAB PO SCH (07:10)
[2017-02-25 08:06] VITALS: BP 128/73; PULSE 66; RESP 16; TEMP 97.2; O2SAT 100
[2017-02-25] MEDS: INSULIN ASPART SUPPLEMENTAL SCALE SQ SCH ×2 (08:36→12:44)
[2017-02-25] MEDS: INSULIN DETEMIR 100 UNITS/ML VIAL SQ SCH (08:37)
[2017-02-25] MEDS: PANTOPRAZOLE SOD 40 MG DELAYED RELEASE TAB PO SCH (08:37)
[2017-02-25] MEDS: SODIUM CHLORIDE 0.9% FLUSH 10 ML FLUSH IV FLUSH SCH (08:37)
--- NOTE | 2017-02-25 10:00 | HHI.PR ---
Subjective Remarks resting comfortably with no acute distress. abdominal pain is overall better and could tolerate the diet. no nausea or vomiting. blood sugar trend noted. Objective Vitals Vital Signs Date Time Temp Pulse Resp B/P (MAP) Pulse Ox O2 Delivery O2 Flow Rate FiO2 02/25/17 08:06 97.2 66 16 128/73 (91) 100 02/25/17 04:32 97.9 74 18 145/94 (111) 92 02/24/17 23:40 97.8 80 18 162/83 (109) 92 02/24/17 19:45 98.1 78 20 154/90 (111) 100 02/24/17 16:50 97.4 70 20 137/91 (106) 100 02/24/17 12:00 98.1 82 14 156/85 (108) 100 02/24/17 12:00 82 I/O 02/24/17 02/24/17 02/24/17 02/25/17 02/25/17 02/25/17 07:00 15:00 23:00 07:00 15:00 23:00 Intake Total 1720 ml 255 ml 1640 ml Output Total 1450 ml 500 ml 775 ml 700 ml Balance 270 ml -245 ml -775 ml 940 ml Intake Oral 720 ml 480 ml IV Total 1000 ml 255 ml 1160 ml Output Urine Total 1450 ml 500 ml 775 ml 700 ml # Bowel Movements 0 Result Diagram: 02/22/17 0500 02/25/17 0531 Imaging Last Impressions Gall Bladder Ultrasound 02/21/17 0000 Signed Impressions: Service Date/Time: Tuesday, February 21, 2017 21:06 - CONCLUSION: Diffusely increased hepatic echogenicity consistent with steatosis. Luis E Torrez MD Abdomen/Pelvis CT 02/20/17 3474 Signed Impressions: Service Date/Time: Monday, February 20, 2017 23:31 - CONCLUSION: 1. No obstruction inflammatory changes or other acute abnormality. 2. Enlarged and fatty infiltrated liver again noted. 3. Fat-containing umbilical and bilateral inguinal hernias, unchanged. 4. Sigmoid colon diverticulosis without diverticulitis. 5. A tiny, nonspecific pleural effusion is seen of the right lung base. 6. 2 mm nonobstructing stone of the left kidney unchanged. Luis E Ross MD Objective Remarks GENERAL: This is a well-nourished, well-developed patient, in no apparent distress. CARDIOVASCULAR: Regular rate and regular rhythm without murmurs, gallops, or rubs. RESPIRATORY: Clear to auscultation. Breath sounds equal bilaterally. No wheezes , rales, or rhonchi. GASTROINTESTINAL: Abdomen soft, non-tender, nondistended. Normal, active bowel sounds MUSCULOSKELETAL: Extremities without clubbing, cyanosis, or edema. NEURO: Alert & Oriented x4 to person, place, time, situation. Moves all ext x4 Medications and IVs Current Medications Morphine Sulfate (Morphine Inj) 4 mg ONCE ONCE IV PUSH Last administered on 21:44; Start 02/20/17 at 21:15; Stop 02/20/17 at 21:16; Status DC Ondansetron HCl (Zofran Inj) 4 mg ONCE ONCE IVP Last administered on 21:45; Start 02/20/17 at 21:15; Stop 02/20/17 at 21:16; Status DC Sodium Chloride 1,000 ml @ 1,000 mls/hr Q1H IV Last administered on 21:44; Start 02/20/17 at 21:06; Stop 02/20/17 at 22:05; Status DC Sodium Chloride (NS Flush) 2 ml UNSCH PRN IV FLUSH FLUSH AFTER USING IV ACCESS Last administered on 02/20/17 21:45; Start 02/20/17 at 21:15; Stop 02/21/17 at 02:24; Status DC Morphine Sulfate (Morphine Inj) 4 mg ONCE ONCE IV PUSH Last administered on 23:17; Start 02/20/17 at 23:15; Stop 02/20/17 at 23:16; Status DC Hydromorphone HCl (Dilaudid Pf Inj) 1 mg ONCE ONCE IV PUSH Last administered on 02/21/17 02:25; Start 02/21/17 at 01:30; Stop 02/21/17 at 01:31; Status DC Sodium Chloride 1,000 ml @ 200 mls/hr Q5H IV Last administered on 02/21/17 12:40; Start 02/21/17 at 02:21; Stop 02/24/17 at 16:22; Status DC Sodium Chloride (NS Flush) 2 ml UNSCH PRN IV FLUSH FLUSH AFTER USING IV ACCESS Last administered on 02/24/17 06:07; Start 02/21/17 at 02:30 Sodium Chloride (NS Flush) 2 ml BID IV FLUSH Last administered on 02/24/17 20: 08; Start 02/21/17 at 09:00 Ondansetron HCl (Zofran Inj) 4 mg Q6H PRN IVP NAUSEA OR VOMITING Last administered on 02/22/17 20:13; Start 02/21/17 at 02:30 Naloxone HCl (Narcan Inj) 0.4 mg UNSCH PRN IV PUSH SEE LABEL COMMENTS; Start 02/21/17 at 02:30 Magnesium Hydroxide (Milk Of Magnesia Liq) 30 ml Q12H PRN PO Mild constipation ; Start 02/21/17 at 02:30 Sennosides (Senokot) 17.2 mg Q12H PRN PO Moderate constipation; Start at 02:30 Bisacodyl (Dulcolax Supp) 10 mg DAILY PRN RECTAL SEVERE CONSITIPATION; Start 02/21/17 at 02:30 Lactulose (Lactulose Liq) 30 ml DAILY PRN PO SEVERE CONSITIPATION; Start 02/21 at 02:30 Morphine Sulfate (Morphine Inj) 2 mg Q3H PRN IM pain 1-5; Start 02/21/17 at 04 :30; Stop 02/21/17 at 05:20; Status DC Morphine Sulfate (Morphine Inj) 4 mg Q3HR PRN IV PUSH pain 6-10; Start at 04:30; Stop 02/21/17 at 05:20; Status DC Insulin Aspart (NovoLOG SUPPLEMENTAL SCALE) 1 ACHS SLIDING SCALE SQ Last administered on 02/21/17 12:00; Start 02/21/17 at 08:00; Stop 02/21/17 at 14 :19; Status DC Hydromorphone HCl (Dilaudid Pf Inj) 1 mg Q4H PRN IV PUSH pain 6-10 Last administered on 02/21/17 09:17; Start 02/21/17 at 05:30; Stop 02/21/17 at 09 :29; Status DC Hydromorphone HCl (Dilaudid Pf Inj) 0.5 mg Q4H PRN IV PUSH pain 1-5; Start at 05:30; Stop 02/22/17 at 09:29; Status DC Hydromorphone HCl (Dilaudid Pf Inj) 1 mg Q3H PRN IV PUSH pain 6-10 Last administered on 02/22/17 09:15; Start 02/21/17 at 09:30; Stop 02/22/17 at 09 :29; Status DC Sodium Chloride 1,000 ml @ 250 mls/hr Q4H IV ; Start 02/21/17 at 14:15; Stop 02/24/17 at 16:22; Status DC Dextrose/Sodium Chloride 1,000 ml @ 200 mls/hr Q5H IV Last administered on 08:25; Start 02/21/17 at 14:15; Stop 02/24/17 at 09:08; Status DC Insulin Human Regular (NovoLIN R INJ) 10 units BOLUS ONCE IV PUSH Last administered on 02/21/17 14:15; Start 02/21/17 at 14:15; Stop 02/21/17 at 15 :01; Status DC Insulin Human Regular 100 units/ Sodium Chloride 100 ml @ 11.36 mls/ hr TITRATE PRN IV Blood Glucose Control Last administered on 02/21/17 23:57; Start 02/21/17 at 14:15; Stop 02/22/17 at 09:19; Status DC Potassium Chloride 100 ml @ 50 mls/hr Q2H PRN IV SEE LABEL COMMENTS; Start at 14:15 Potassium Chloride 100 ml @ 50 mls/hr Q2H PRN IV SEE LABEL COMMENTS; Start at 14:15 Potassium Chloride 100 ml @ 50 mls/hr Q2H PRN IV SEE LABEL COMMENTS Last administered on 02/22/17 03:45; Start 02/21/17 at 14:15 Potassium Chloride 100 ml @ 50 mls/hr Q2H PRN IV SEE LABEL COMMENTS; Start at 14:15 Sodium Bicarbonate (Sodium Bicarbonate 8.4% Inj) 100 meq UNSCH PRN IV PUSH SEE LABEL COMMENTS; Start 02/21/17 at 14:15 Sodium Bicarbonate (Sodium Bicarbonate 8.4% Inj) 50 meq UNSCH PRN IV PUSH SEE LABEL COMMENTS; Start 02/21/17 at 14:15 Sodium Phosphate 15 mmol/Sodium Chloride 105 ml @ 25 mls/hr UNSCH PRN IV SEE LABEL COMMENTS; Start 02/21/17 at 14:15 Miscellaneous Information 1 [id number] XX Last administered on 02/21/17 14:15; Start 02/21/17 at 14:15 Chlorhexidine Gluconate (Chlorhexidine 2% Cloth) 3 pack Taper DAILY@04 TOP Last administered on 02/24/17 04:00; Start 02/22/17 at 04:00; Stop 02/18/18 at 03:59 Chlorhexidine Gluconate (Chlorhexidine 2% Cloth) 3 pack UNSCH PRN TOP HYGIENIC CARE; Start 02/21/17 at 14:15 Gemfibrozil (Lopid) 600 mg BIDAC PO Last administered on 02/25/17 07:10; Start 02/21/17 at 18:00 Insulin Human Regular 100 units/ Sodium Chloride 100 ml @ 11 mls/hr TITRATE PRN IV Blood Glucose Control Last administered on 02/23/17 11:55; Start 02/22 at 09:30; Stop 02/24/17 at 10:44; Status DC Hydromorphone HCl (Dilaudid Pf Inj) 1 mg Q3H PRN IV PUSH pain 1-5; Start 02/22 at 09:30; Stop 02/24/17 at 09:17; Status DC Hydromorphone HCl (Dilaudid Pf Inj) 2 mg Q3H PRN IV PUSH pain 6-10 Last administered on 02/23/17 08:49; Start 02/22/17 at 09:30; Stop 02/23/17 at 10 :01; Status DC Promethazine HCl (Phenergan Supp) 25 mg Q4H PRN RECTAL SEE LABEL COMMENTS; Start 02/22/17 at 09:45 Pantoprazole Sodium (Protonix) 40 mg DAILY PO Last administered on 02/25/17 08 :37; Start 02/23/17 at 09:00 Hydromorphone HCl (Dilaudid Pf Inj) 2 mg Q2H PRN IV PUSH PAIN SCALE 6 TO 10 Last administered on 02/24/17 08:21; Start 02/23/17 at 10:15; Stop 02/24/17 at 09:17; Status DC Potassium Chloride/Sodium Chloride 1,000 ml @ 100 mls/hr Q10H IV Last administered on 02/25/17 04:29; Start 02/24/17 at 09:15 Insulin Detemir (Levemir Inj) 10 units Q12HR SQ Last administered on 02/25/17 08:37; Start 02/24/17 at 09:15 Dextrose (D50w (Vial) Inj) 50 ml UNSCH PRN IV PUSH HYPOGLYCEMIA-SEE COMMENTS; Start 02/24/17 at 09:15 Glucagon (Glucagon Inj) 1 mg UNSCH PRN OTHER HYPOGLYCEMIA-SEE COMMENTS; Start 02/24/17 at 09:15 Insulin Aspart (NovoLOG SUPPLEMENTAL SCALE) 1 ACHS SLIDING SCALE SQ Last administered on 02/25/17 08:36; Start 02/24/17 at 12:00 Hydromorphone HCl (Dilaudid Pf Inj) 1 mg Q4H PRN IV PUSH BREAKTHROUGH PAIN Last administered on 02/25/17 09:26; Start 02/24/17 at 09:30 Acetaminophen/ Hydrocodone Bitart (Raymond 7.5-325 Mg) 1 tab Q4H PRN PO PAIN GREATER THAN 5; Start 02/24/17 at 09:15; Stop 02/24/17 at 12:24; Status DC Oxycodone/ Acetaminophen (Percocet 7.5-325 Mg) 1 tab Q4H PRN PO PAIN GREATER THAN 5 Last administered on 02/25/17 07:10; Start 02/24/17 at 12:30 A/P Assessment and Plan A/P Acute pancreatitis -CT with no signs of infection. - Lipase normalized -Likely secondary to hypertriglyceridemia. Initial triglyceride 4929, trending down. 428 today. -Marked improvement with insulin drip. DC'ed insulin drip and transition to SSI with accucheck - Change pain meds to Percocet and Dilaudid for breakthrough - Appreciate GI following. hypertriglyceridemia. Pt indicate that most of his family early from cholesterol or heart related issues. - Initial triglyceride 4929 and now 428. Appreciate Hematology following. Did not require apheresis. - Patient on gemfibrozil, follow-up as outpatient. - Advised outpatient testing for genetic disorders Diabetes mellitus: Newly diagnosed -Uncontrolled. s/p insulin drip secondary to hypertriglyceridemia. - continue Levemir 12 units BID. SSI with accuchecks. - certified diabetes educator following patient - Hemoglobin A1c of 11. Will need insulin on discharge. DVT prophylaxis -SCDs Discharge Planning dc home with f/u with pcp and GI- this afternoon if tolerates the diet. see med list. d/w the patient. d/w the RN. d/w the GI. time spent 35 min. Maya Plummer MD Feb 25, 2017 10:00
[2017-02-25] MEDS ORDERED: NOVOLOGP2 SQ (10:02)
[2017-02-25] MEDS ORDERED: LEVEMIR SQ (10:02)
[2017-02-25] MEDS ORDERED: PERC10TA27 PO (10:02)
[2017-02-25] MEDS ORDERED: GEMF600 PO (10:02)
--- NOTE | 2017-02-25 10:09 | HHI.DS ---
Discharge Summary Admission Date Feb 21, 2017 at 02:18 Discharge Date: Feb 25, 2017 Admitting Diagnosis Pancreatitis (1) Pancreatitis, acute ICD Code: K85.90 - Acute pancreatitis without necrosis or infection, unspecified Diagnosis: Principal Status: Acute (2) Diabetes mellitus ICD Code: E11.9 - Type 2 diabetes mellitus without complications Diagnosis: Principal Procedures none Brief History - From Admission 41 y/o male with a history of DM (not on any medication) presented to the ED with complaints of severe abdominal pain. He states the pain is constant, 10/10 , epigastric region that began at 5 pm with radiation to his back, with associated nausea, vomiting and diarrhea. He is also complaining of a sharp headache pain. He has recently lost 60 lbs but has never been on diabetic medication. He denies any fevers or chills. Denies any chest pain or shortness of breath. He does report a headache since yesterday afternoon. Denies any focal signs or symptoms. PCP: Dr. Sky CBC/BMP: 02/22/17 0500 02/25/17 0531 Significant Findings Laboratory Tests Test 02/22/17 12:25 02/23/17 06:54 02/24/17 06:17 02/24/17 19:02 Blood Urea Nitrogen 5 MG/DL (7-18) 5 MG/DL (7-18) 6 MG/DL (7-18) Random Glucose 192 MG/DL (74-106) 196 MG/DL (74-106) 170 MG/DL (74-106) Phosphorus Level 2.0 MG/DL (2.5-4.9) Sodium Level 132 MEQ/L (136-145) Carbon Dioxide Level 20.2 MEQ/L (21.0-32.0) Triglycerides Level 955 MG/DL (42-150) 558 MG/DL (42-150) Albumin 2.8 GM/DL (3.4-5.0) Calcium Level 8.4 MG/DL (8.5-10.1) Direct Bilirubin 0.3 MG/DL (0.0-0.2) Test 02/25/17 05:31 Random Glucose 216 MG/DL (74-106) Triglycerides Level 428 MG/DL (42-150) Imaging Last Impressions Gall Bladder Ultrasound 02/21/17 0000 Signed Impressions: Service Date/Time: Tuesday, February 21, 2017 21:06 - CONCLUSION: Diffusely increased hepatic echogenicity consistent with steatosis. Luis E Torrez MD Abdomen/Pelvis CT 02/20/17 2215 Signed Impressions: Service Date/Time: Monday, February 20, 2017 23:31 - CONCLUSION: 1. No obstruction inflammatory changes or other acute abnormality. 2. Enlarged and fatty infiltrated liver again noted. 3. Fat-containing umbilical and bilateral inguinal hernias, unchanged. 4. Sigmoid colon diverticulosis without diverticulitis. 5. A tiny, nonspecific pleural effusion is seen of the right lung base. 6. 2 mm nonobstructing stone of the left kidney unchanged. Luis E Ross MD PE at Discharge GENERAL: This is a well-nourished, well-developed patient, in no apparent distress. CARDIOVASCULAR: Regular rate and regular rhythm without murmurs, gallops, or rubs. RESPIRATORY: Clear to auscultation. Breath sounds equal bilaterally. No wheezes , rales, or rhonchi. GASTROINTESTINAL: Abdomen soft, non-tender, nondistended. Normal, active bowel sounds MUSCULOSKELETAL: Extremities without clubbing, cyanosis, or edema. NEURO: Alert & Oriented x4 to person, place, time, situation. Moves all ext x4 Hospital Course Acute pancreatitis -CT with no signs of infection. - Lipase normalized -Likely secondary to hypertriglyceridemia. Initial triglyceride 4929, trending down. 428 today. -Marked improvement with insulin drip. DC'ed insulin drip and transition to SSI with accucheck - Change pain meds to Percocet and Dilaudid for breakthrough - Appreciate GI following. hypertriglyceridemia. Pt indicate that most of his family early from cholesterol or heart related issues. - Initial triglyceride 4929 and now 428. Appreciate Hematology following. Did not require apheresis. - Patient on gemfibrozil, follow-up as outpatient. - Advised outpatient testing for genetic disorders Diabetes mellitus: Newly diagnosed -Uncontrolled. s/p insulin drip secondary to hypertriglyceridemia. - continue Levemir 12 units BID. SSI with accuchecks. - braiding machine tender following patient - Hemoglobin A1c of 11. Will need insulin on discharge. DVT prophylaxis -SCDs Pt Condition on Discharge: Fair Discharge Disposition: Discharge Home Discharge Time: > 30 minutes Discharge Instructions DIET: Follow Instructions for: Low Fat Diet Activities you can perform: Regular-No Restrictions Follow up Referrals: Gastroenterology PCP Follow-up New Medications: Insulin Aspart Inj (Novolog Inj) 1,000 Unit/10 Ml Vial 1-9 UNITS SQ ACHS for Blood Sugar Management, #10 ML 0 Refills sugars less than 70,(0)units; sugars 150-199,(1) unit; sugars 200-249,(3) units; sugars 250-299,(5) units; sugars 300-349,(7) units; sugars greater than 349,(9) units inform PCP if < 70 or >400. Oxycodone-Acetaminophen (Percocet) 5-325 mg Tab 1 TAB PO Q4H PRN for PAIN, #15 TAB 0 Refills Gemfibrozil (Lopid) 600 Mg Tab 600 MG PO BIDAC for hypertriglyceridemia for 30 Days, TAB 0 Refills Take 30 minutes prior to breakfast and dinner Insulin Detemir Inj (Levemir Inj) 1,000 unit/ 10 ML Vial 10 UNITS SQ Q12HR for diabetes for 30 Days, INJECTION 0 Refills Do not mix with any other Insulin. Maya Plummer MD Feb 25, 2017 10:09
[2017-02-25] MEDS ORDERED: PERC5TAB12 PO (10:21)
[2017-02-25 12:06] VITALS: BP 135/91; PULSE 85; RESP 16; TEMP 98.1; O2SAT 98
== END 2017-02-25 14:53 | disposition home or self-care (01) | DRG 439 ==
LOC: NEPE 20:07 → NEDA 02-21 02:18 → N06B 02-21 04:09 → HIMN 02-21 15:50 → N04A 02-24 13:18
PROVIDERS: ADMIT Internal Medicine; ATTEND Internal Medicine
DX: K85.90 Acute pancreatitis without necrosis or infection, unspecified (principal); E87.1 Hypo-osmolality and hyponatremia; E11.42 Type 2 diabetes mellitus with diabetic polyneuropathy; K76.0 Fatty (change of) liver, not elsewhere classified; E11.65 Type 2 diabetes mellitus with hyperglycemia; I10 Essential (primary) hypertension; G89.29 Other chronic pain; M54.9 Dorsalgia, unspecified; F41.9 Anxiety disorder, unspecified; G47.30 Sleep apnea, unspecified; E78.1 Pure hyperglyceridemia; E86.0 Dehydration; K40.20 Bilateral inguinal hernia, without obstruction or gangrene, not specified as recurrent; K57.30 Diverticulosis of large intestine without perforation or abscess without bleeding; N20.0 Calculus of kidney; Z83.42 Family history of familial hypercholesterolemia
CPT/HCPCS: 74176; 76705; 80048; 80053; 80061; 80076; 81001; 82010; 82550; 82552; 82948; 83036; 83605; 83690; 83735; 84100; 84443; 84478; 84484; 85025; 85384; 85610; 85730; 87641; 93005; 96361; 96374; 96375; 96376; J1170; J1815; J1817; J2270; J2405; J3480; J7030; J7042

== ENCOUNTER 2017-03-05 16:04 | Emergency (ER) | payer OTHER ==
[~2017-03-05] VITALS: Ht 180.3 cm; Wt 116.0 kg
[~2017-03-05 16:04] MED LIST changes: -CIPR500T2 PO; -CLON1TAB PO; -EC-N500T PO; +GEMF600 PO; -IBUP-232 PO; +LEVEMIR SQ; -MOBI15TA PO; -MORP1TAB25 PO; +NOVOLOGP2 SQ; -ONDA4TAB7 SL; -PERC10TA27 PO; +PERC5TAB12 PO
[2017-03-05 16:10] VITALS: BP 140/95; PULSE 92; RESP 18; TEMP 97.7; O2SAT 97
[2017-03-05] MEDS ORDERED: SODIUM CHLOR 0.9% 1000 ML INJ 1,000 ML IV SCH ×2 (16:49→18:15)
[2017-03-05] MEDS ORDERED: SODIUM CHLORIDE 0.9% FLUSH 10 ML FLUSH IV FLUSH PRN (17:00)
[2017-03-05] MEDS ORDERED: MORPHINE SULFATE 4 MG/ML INJ IV PUSH ONE (17:00)
[2017-03-05] MEDS ORDERED: ONDANSETRON HCL 4 MG/2 ML VIAL IVP ONE (17:00)
[2017-03-05 17:08] LABS: AUTOMATED NEUTROPHIL # 8.1 TH/MM3 (1.8-7.7); BASOPHIL # 0.1 TH/MM3 (0-0.2); EOSINOPHIL # 0.1 TH/MM3 (0-0.4); EOSINOPHIL % 1.1 % (0.0-4.0); HEMATOCRIT 44.8 % (39.0-51.0); HEMO FLAGS DIFF FINAL; LYMPHOCYTE # 2.5 TH/MM3 (1.0-4.8); MEAN CELL VOLUME 80.8 FL (80.0-100.0); MEAN CORPUSCULAR HEMOGLOBIN 28.2 PG (27.0-34.0); MEAN CORPUSCULAR HGB CONC 34.9 % (32.0-36.0); MONO % 4.8 % (0.0-8.0); NEUT % 71.1 % (16.0-70.0); PLATELET COUNT 277 TH/MM3 (150-450); RED BLOOD COUNT 5.55 MIL/MM3 (4.50-5.90); RED CELL DISTRIBUTION WIDTH 12.1 % (11.6-17.2); WHITE BLOOD COUNT 11.3 TH/MM3 (4.0-11.0)
--- NOTE | 2017-03-05 17:13 | PD ---
HPI . Abdominal pain Chief Complaint: Abdominal Pain Time Seen by Provider: 17:01 Travel History International Travel<30 days: No Contact w/Intl Traveler<30days: No Traveled to known affect area: No History of Present Illness HPI This patient presents with chief complaint of epigastric abdominal pain. He has recently had pancreatitis. He was discharged from the hospital on February 25. He was getting better until yesterday when his symptoms recurred. They are acutely worse today. Symptoms are associated with dry heaving. He states that the symptoms wax and wane but are severe at times. Pain is exacerbated by eating. No diarrhea. No fever. No urinary tract symptoms. He was discharged with a prescription for Percocet but states that he is out of it. He was not discharged with an antiemetic. He states that he saw his primary care provider today for follow-up and that the primary care provider instructed him to come here. PFSH Past Medical History Hx Anticoagulant Therapy: No Arthritis: No Asthma: No Autoimmune Disease: No Anxiety: No Depression: No Heart Rhythm Problems: No Cancer: No Cardiovascular Problems: No High Cholesterol: No Chemotherapy: No Chest Pain: No Congestive Heart Failure: No COPD: No Cerebrovascular Accident: No Diabetes: Yes Patient Takes Glucophage: No Diminished Hearing: No Endocrine: No GERD: No Genitourinary: No Headaches: No Hepatitis: No Hiatal Hernia: No Hypertension: Yes ( ) Immune Disorder: Yes Inguinal Hernia: Yes Implanted Vascular Access Dvce: No Kidney Stones: Yes Musculoskeletal: Yes (CHRONIC BACK PAIN, hip problems) Neurologic: Yes (neuropathy) Psychiatric: Yes (anxiety) Reproductive: No Respiratory: Yes (sleep apnea ) Immunizations Current: Yes Migraines: No Pancreatitis: Yes Radiation Therapy: No Renal Failure: No Seizures: No Shingles: Yes Sickle Cell Disease: No Sleep Apnea: Yes (NO CPAP USE) Thyroid Disease: No Ulcer: No Past Surgical History Abdominal Surgery: Yes (HERNIA REPAIR) AICD: No Arteriovenous Shunt: No Body Medical Devices: NONE Cardiac Surgery: No Ear Surgery: No Endocrine Surgery: No Eye Surgery: No Genitourinary Surgery: No Gynecologic Surgery: No Insulin Pump: No Joint Replacement: No Neurologic Surgery: Yes (spine surgery) Oral Surgery: No Pacemaker: No Thoracic Surgery: No Other Surgery: Yes (1 testical removed ) Social History Alcohol Use: No Tobacco Use: No Substance Use: No Allergies-Medications (Allergen,Severity, Reaction): Coded Allergies: diatrizoate meglumine (Verified Allergy, Mild, Rash, 03/05/17) gadobenic acid (Verified Allergy, Mild, Rash, 03/05/17) gadodiamide (Verified Allergy, Mild, Rash, 03/05/17) gadoteridol (Verified Allergy, Mild, Rash, 03/05/17) iodixanol (Verified Allergy, Mild, Rash, 03/05/17) iohexol (Verified Allergy, Mild, Rash, 03/05/17) Reported Meds & Prescriptions Reported Meds & Active Scripts Active Phenergan (Promethazine HCl) 25 Mg Tablet 25 Mg PO Q6H PRN [place] (Hydrocodone-Acetaminophen) 5 Mg-325 Mg Tab 1 Tab PO Q4H PRN Novolog Inj (Insulin Aspart) 1,000 Unit/10 Ml Vial 1-9 Units SQ ACHS sugars less than 70,(0)units; sugars 150-199,(1) unit; sugars 200-249,(3) units; sugars 250-299,(5) units; sugars 300-349,(7) units; sugars greater than 349,(9) units inform PCP if < 70 or >400. Levemir Inj (Insulin Detemir) 1,000 unit/ 10 ML Vial 10 Units SQ Q12HR 30 Days Do not mix with any other Insulin. Lopid (Gemfibrozil) 600 Mg Tab 600 Mg PO BIDAC 30 Days Take 30 minutes prior to breakfast and dinner Review of Systems Except as stated in HPI: all other systems reviewed are Neg General / Constitutional: Positive: Other (feels hot), No: Fever, Chills Gastrointestinal: Positive: Nausea, Abdominal Pain, No: Diarrhea Genitourinary: No: Urgency, Frequency, Dysuria Physical Exam Narrative GENERAL: The patient looks frightened. SKIN: warm/dry. Normal color. HEAD: Normocephalic. Atraumatic. EYES: Pupils equal and round. No scleral icterus. No injection or drainage. ENT: No nasal bleeding or discharge. Mucous membranes pink and moist. NECK: Trachea midline. Full range of motion without pain.. CARDIOVASCULAR: Regular rate and rhythm. Heart sounds are normal. RESPIRATORY: No accessory muscle use. Clear to auscultation. Breath sounds equal bilaterally. GASTROINTESTINAL: Exquisite epigastric tenderness. Bowel sounds present. Nondistended. MUSCULOSKELETAL: No obvious deformities. NEUROLOGICAL: Awake and alert. No obvious cranial nerve deficits. Motor grossly within normal limits. Normal speech. PSYCHIATRIC: Appropriate mood and affect; insight and judgment normal. Data Data Last Documented VS Vital Signs Date Time Temp Pulse Resp B/P (MAP) Pulse Ox O2 Delivery O2 Flow Rate FiO2 03/05/17 19:01 88 16 143/78 (99) 97 Room Air 03/05/17 16:10 97.7 Orders Orders Complete Blood Count With Diff (03/05/17 16:49) Comprehensive Metabolic Panel (03/05/17 16:49) Lipase (03/05/17 16:49) Lactic Acid (03/05/17 16:49) Iv Access Insert/Monitor (03/05/17 16:49) Ecg Monitoring (03/05/17 16:49) Oximetry (03/05/17 16:49) Morphine Inj (Morphine Inj) (03/05/17 17:00) Ondansetron Inj (Zofran Inj) (03/05/17 17:00) Sodium Chlor 0.9% 1000 Ml Inj (Ns 1000 M (03/05/17 16:49) Sodium Chloride 0.9% Flush (Ns Flush) (03/05/17 17:00) Morphine Inj (Morphine Inj) (03/05/17 18:00) Hydromorphone Pf Inj (Dilaudid Pf Inj) (03/05/17 17:30) Sodium Chlor 0.9% 1000 Ml Inj (Ns 1000 M (03/05/17 18:15) Hydromorphone Pf Inj (Dilaudid Pf Inj) (03/05/17 18:15) Ct Abd/Pel W/O Iv Contrast (03/05/17 18:29) Labs Laboratory Tests Test 03/05/17 16:45 03/05/17 16:58 White Blood Count 11.3 TH/MM3 Red Blood Count 5.55 MIL/MM3 Hemoglobin 15.7 GM/DL Hematocrit 44.8 % Mean Corpuscular Volume 80.8 FL Mean Corpuscular Hemoglobin 28.2 PG Mean Corpuscular Hemoglobin Concent 34.9 % Red Cell Distribution Width 12.1 % Platelet Count 277 TH/MM3 Mean Platelet Volume 8.4 FL Neutrophils (%) (Auto) 71.1 % Lymphocytes (%) (Auto) 22.0 % Monocytes (%) (Auto) 4.8 % Eosinophils (%) (Auto) 1.1 % Basophils (%) (Auto) 1.0 % Neutrophils # (Auto) 8.1 TH/MM3 Lymphocytes # (Auto) 2.5 TH/MM3 Monocytes # (Auto) 0.5 TH/MM3 Eosinophils # (Auto) 0.1 TH/MM3 Basophils # (Auto) 0.1 TH/MM3 CBC Comment DIFF FINAL Differential Comment Blood Urea Nitrogen 17 MG/DL Creatinine 1.00 MG/DL Random Glucose 343 MG/DL Total Protein 8.2 GM/DL Albumin 3.6 GM/DL Calcium Level 9.1 MG/DL Alkaline Phosphatase 107 U/L Aspartate Amino Transf (AST/SGOT) 23 U/L Alanine Aminotransferase (ALT/SGPT) 32 U/L Total Bilirubin 0.4 MG/DL Sodium Level 133 MEQ/L Potassium Level 4.2 MEQ/L Chloride Level 99 MEQ/L Carbon Dioxide Level 24.5 MEQ/L Anion Gap 10 MEQ/L Estimat Glomerular Filtration Rate 83 ML/MIN Lipase 283 U/L Lactic Acid Level 1.0 mmol/L MDM Medical Decision Making Medical Screen Exam Complete: Yes Emergency Medical Condition: Yes Medical Record Reviewed: Yes (patient had a CT of the abdomen showed a fatty liver. He also has fat containing hernias. He has diverticulosis without evidence of diverticulitis. Gallbladder ultrasound shows hepatic steatosis but no evidence of gallbladder disease.) Differential Diagnosis Differential diagnosis of abdominal pain includes but is not limited to gastritis, pancreatitis, hepatitis, gastroenteritis, gallbladder disease, constipation, urinary retention, UTI, peptic ulcer disease, diverticulitis or appendicitis Narrative Course This patient presents for epigastric abdominal pain. He has had this before secondary to pancreatitis. He is being treated with IV fluids and IV Zofran and morphine. Labs are pending. I have not ordered any imaging studies as he was just imaged within the last 2 weeks. The patient reported minimal if any relief with morphine. He was then given Dilaudid 2 mg IV. He reports some relief with the Dilaudid. CBC & BMP Diagram 03/05/17 16:45 Total Protein 8.2, Albumin 3.6, Calcium Level 9.1, Alkaline Phosphatase 107, Aspartate Amino Transf (AST/SGOT) 23, Alanine Aminotransferase (ALT/SGPT) 32, Total Bilirubin 0.4 Lipase and lactic acid level are normal. The patient is still complaining with pain rated 7/10. I have ordered an additional liter of fluid and an additional dose of Dilaudid 2 mg IV. This patient continues to have significant abdominal pain despite the fact that he has had morphine or milligrams IV and Dilaudid 2 mg IV. His labs really are unremarkable. I have added a CT of his abdomen and pelvis. He is allergic to iodine so the CT will be done without contrast. Last Impressions Abdomen/Pelvis CT 03/05/[id number] Signed Impressions: Service Date/Time: Sunday, March 05, 2017 18:44 - CONCLUSION: 1. No acute abnormality. 2. Tiny bilateral pleural effusions. 3. Hepatic steatosis. 4. Colonic diverticulosis. 5. Umbilical and bilateral hernias. 6. 2 tiny nonobstructing left renal calculi. Saturnino Ortega Jr., MD This patient has had a previous gallbladder ultrasound which was negative. His symptoms do sound suspicious for cholelithiasis him that his abdominal pain is exacerbated by food. I have advised him to see his primary care provider for consideration of hepatobiliary scan. Diagnosis Primary Impression: Epigastric pain Referrals: DINORAH JAIN M.D. 3 days discuss a possible hepatobiliary scan with her for further evaluation of your gallbladder Patient Instructions: Epigastric Pain (ED), General Instructions Med/Other Pt SpecificInfo: Prescription(s) given Scripts Promethazine (Phenergan) 25 Mg Tablet 25 MG PO Q6H Y for NAUSEA OR VOMITING, #12 TAB 0 Refills Prov: Susanne Lou MD 03/05/17 Hydrocodone-Acetaminophen (Springer) 5 Mg-325 Mg Tab 1 TAB PO Q4H Y for PAIN, #12 TAB 0 Refills Prov: Susanne Lou MD 03/05/17 Disposition: 01 DISCHARGE HOME Condition: Stable Susanne Lou MD Mar 05, 2017 17:13
[2017-03-05 17:16] LABS: CHLORIDE 99 MEQ/L (98-107); POTASSIUM 4.2 MEQ/L (3.5-5.1); SODIUM (NA) 133 MEQ/L (136-145)
[2017-03-05 17:17] VITALS: BP 148/100; PULSE 80; RESP 18; O2SAT 95
[2017-03-05 17:20] LABS: ANION GAP 10 MEQ/L (5-15); BICARBONATE 24.5 MEQ/L (21.0-32.0); BLOOD UREA NITROGEN 17 MG/DL (7-18)
[2017-03-05 17:23] LABS: AST (GOT) 23 U/L (15-37); GLOMERULAR FILTRATION RATE 83 ML/MIN (>89)
[2017-03-05 17:25] LABS: TOTAL BILIRUBIN ADULT 0.4 MG/DL (0.2-1.0)
[2017-03-05 17:26] LABS: ALKALINE PHOSPHATASE 107 U/L (45-117)
[2017-03-05] MEDS ORDERED: HYDROmorphone HCL PF 2 MG/ML VIAL IV PUSH ONE ×2 (17:30→18:15)
[2017-03-05 17:46] LABS: ALT (GPT) 32 U/L (12-78)
[2017-03-05 17:50] VITALS: BP 141/95; PULSE 85; RESP 18; O2SAT 97
[2017-03-05] MEDS ORDERED: MORPHINE SULFATE 2 MG/ML INJ IV PUSH ONE (18:00)
[2017-03-05 18:23] VITALS: BP 151/84; PULSE 86; RESP 18; O2SAT 95
[2017-03-05] MEDS ORDERED: PROM25TA10 PO (18:47)
[2017-03-05] MEDS ORDERED: NORC5TAB PO (18:47)
[2017-03-05 19:01] VITALS: BP 143/78; PULSE 88; RESP 16; O2SAT 97
--- NOTE | 2017-03-05 19:05 | RADRPT ---
EXAM DATE/TIME: 03/05/2017 18:44 [facility] COMPARISON: CT ABDOMEN & PELVIS W/O CONTRAST, February 20, 2017, 23:31. INDICATIONS : Right upper quadrant pain and nausea x 1 week. ORAL CONTRAST: No oral contrast ingested. RADIATION DOSE: 21.13 CTDIvol (mGy) MEDICAL HISTORY : Pancreatitis. Renal calculi. Diabetes mellitus type 2.Hypertension. SURGICAL HISTORY : Inguinal hernia repair. ENCOUNTER: Initial ACUITY: 1 week PAIN SCALE: 7/10 LOCATION: Right upper quadrant TECHNIQUE: Volumetric scanning of the abdomen and pelvis was performed. Using automated exposure control and ad justment of the mA and/or kV according to patient size, radiation dose was kept as low as reasonably achievable to obtain optimal diagnostic quality images. DICOM format image data is available electro nically for review and comparison. FINDINGS: LOWER LUNGS: Tiny bilateral pleural effusions. These are unchanged. LIVER: Diffuse low attenuation change involving the liver. No mass or ductal dilatation. Gallbladder is unre markable. SPLEEN: Normal size without lesion. PANCREAS: Within normal limits. KIDNEYS: Normal in size and shape. There is no mass or hydronephrosis. 2 tiny stones are seen involving the l eft kidney. Each measures approximately 1 mm. No obstruction. ADRENAL GLANDS: Within normal limits. VASCULAR: There is no aortic aneurysm. BOWEL/MESENTERY: The stomach, small bowel, and colon demonstrate no acute abnormality. There is no free intraperitone al air or fluid. Colonic diverticulosis without acute inflammatory change. ABDOMINAL WALL: There is a broad-based umbilical hernia containing omental fat. RETROPERITONEUM: There is no lymphadenopathy. BLADDER: No wall thickening or mass. REPRODUCTIVE: Within normal limits. INGUINAL: Bilateral inguinal hernias containing fat. MUSCULOSKELETAL: Within normal limits for patient age. CONCLUSION: 1. No acute abnormality. 2. Tiny bilateral pleural effusions. 3. Hepatic steatosis. 4. Colonic diverticulosis. 5. Umbilical and bilateral hernias. 6. 2 tiny nonobstructing left renal calculi. Saturnino Ortega Jr., MD on March 05, 2017 at 19:01 Board Certified Radiologist. This report was verified electronically.
[2017-03-05] MEDS ORDERED: KETOROLAC TROMETHAMINE 30 MG/ML (IVP) VIAL IV PUSH ONE (19:30)
== END 2017-03-05 19:29 | disposition home or self-care (01) ==
LOC: PHED 16:04
DX: R10.13 Epigastric pain (principal); E11.9 Type 2 diabetes mellitus without complications; I10 Essential (primary) hypertension; G47.30 Sleep apnea, unspecified; Z79.4 Long term (current) use of insulin; Z87.19 Personal history of other diseases of the digestive system; Z87.39 Personal history of other diseases of the musculoskeletal system and connective tissue; Z86.69 Personal history of other diseases of the nervous system and sense organs; Z86.59 Personal history of other mental and behavioral disorders
CPT/HCPCS: 74176; 80053; 83605; 83690; 85025; 96361; 96374; 96375; 96376; 99285; J1170; J2270; J2405; J7030

== ENCOUNTER 2017-04-03 22:55 | Emergency (ER) | payer OTHER ==
[~2017-04-03 22:55] MED LIST changes: +NORC5TAB PO; -PERC5TAB12 PO; +PROM25TA10 PO
[2017-04-03 22:58] VITALS: BP 166/93; PULSE 91; RESP 20; TEMP 97.5; O2SAT 100
--- NOTE | 2017-04-03 23:25 | PD ---
HPI Chief Complaint: Abdominal Pain Time Seen by Provider: 23:18 Travel History International Travel<30 days: No Contact w/Intl Traveler<30days: No Traveled to known affect area: No History of Present Illness HPI 42-year-old male presents to the emergency department for complaint of severe abdominal pain radiating to the right testicle. Patient has prior history of inguinal hernia and inguinal herniorrhaphy. Patient denies any straddle injury or direct blunt trauma to the groin. Patient states she misstepped getting off of his truck today does not recall a specific pain at the time of that event. Patient rates his pain 10 over 10 in intensity. Patient has had nausea and vomiting. No prior history of kidney stones. No report of hematuria. No fever or chills. PFSH Past Medical History Narrative Medical diabetes hypertension orchiectomy Hx Anticoagulant Therapy: No Arthritis: No Asthma: No Autoimmune Disease: No Anxiety: No Depression: No Heart Rhythm Problems: No Cancer: No Cardiovascular Problems: No High Cholesterol: No Chemotherapy: No Chest Pain: No Congestive Heart Failure: No COPD: No Cerebrovascular Accident: No Diabetes: Yes Diminished Hearing: No Endocrine: No GERD: No Genitourinary: No Headaches: No Hepatitis: No Hiatal Hernia: No Hypertension: Yes ( ) Immune Disorder: Yes Inguinal Hernia: Yes Implanted Vascular Access Dvce: No Kidney Stones: Yes Musculoskeletal: Yes (CHRONIC BACK PAIN, hip problems) Neurologic: Yes (neuropathy) Psychiatric: Yes (anxiety) Reproductive: No Respiratory: Yes (sleep apnea ) Immunizations Current: Yes Migraines: No Pancreatitis: Yes Radiation Therapy: No Renal Failure: No Seizures: No Shingles: Yes Sickle Cell Disease: No Sleep Apnea: Yes (NO CPAP USE) Thyroid Disease: No Ulcer: No Past Surgical History Abdominal Surgery: Yes (HERNIA REPAIR) AICD: No Arteriovenous Shunt: No Body Medical Devices: NONE Cardiac Surgery: No Ear Surgery: No Endocrine Surgery: No Eye Surgery: No Genitourinary Surgery: No Gynecologic Surgery: No Insulin Pump: No Joint Replacement: No Neurologic Surgery: Yes (spine surgery) Oral Surgery: No Pacemaker: No Thoracic Surgery: No Other Surgery: Yes (1 testical removed ) Social History Alcohol Use: No Tobacco Use: No Substance Use: No Allergies-Medications (Allergen,Severity, Reaction): Coded Allergies: diatrizoate meglumine (Verified Allergy, Mild, Rash, 04/03/17) gadobenic acid (Verified Allergy, Mild, Rash, 04/03/17) gadodiamide (Verified Allergy, Mild, Rash, 04/03/17) gadoteridol (Verified Allergy, Mild, Rash, 04/03/17) iodixanol (Verified Allergy, Mild, Rash, 04/03/17) iohexol (Verified Allergy, Mild, Rash, 04/03/17) Reported Meds & Prescriptions Reported Meds & Active Scripts Active Zofran Odt (Ondansetron Odt) 4 Mg Tab 4 Mg SL Q6HR PRN Ultram (Tramadol HCl) 50 Mg Tab 50 Mg PO Q6H PRN Phenergan (Promethazine HCl) 25 Mg Tablet 25 Mg PO Q6H PRN [place] (Hydrocodone-Acetaminophen) 5 Mg-325 Mg Tab 1 Tab PO Q4H PRN Novolog Inj (Insulin Aspart) 1,000 Unit/10 Ml Vial 1-9 Units SQ ACHS sugars less than 70,(0)units; sugars 150-199,(1) unit; sugars 200-249,(3) units; sugars 250-299,(5) units; sugars 300-349,(7) units; sugars greater than 349,(9) units inform PCP if < 70 or >400. Levemir Inj (Insulin Detemir) 1,000 unit/ 10 ML Vial 10 Units SQ Q12HR 30 Days Do not mix with any other Insulin. Lopid (Gemfibrozil) 600 Mg Tab 600 Mg PO BIDAC 30 Days Take 30 minutes prior to breakfast and dinner Review of Systems Except as stated in HPI: all other systems reviewed are Neg Physical Exam Narrative GENERAL: Well-developed well-nourished female in obvious discomfort holding his groin and standing up at the bedside SKIN: Warm and dry. HEAD: Normocephalic. EYES: No scleral icterus. No injection or drainage. NECK: Supple, trachea midline. No JVD or lymphadenopathy. CARDIOVASCULAR: Regular rate and rhythm without murmurs, gallops, or rubs. RESPIRATORY: Breath sounds equal bilaterally. No accessory muscle use. GASTROINTESTINAL: Abdomen soft, non-tender, nondistended. : Circumcised male with single testicle with marked tenderness to direct palpation without scrotal edema induration or erythema and no tenderness for hernia on inguinal exam; testicle is suspended without appearing high riding and cremasteric reflex is present. No penile discharge is noted. MUSCULOSKELETAL: No cyanosis, or edema. BACK: Nontender without obvious deformity. No CVA tenderness. Data Data Last Documented VS Vital Signs Date Time Temp Pulse Resp B/P (MAP) Pulse Ox O2 Delivery O2 Flow Rate FiO2 04/03/17 22:58 97.5 91 20 166/93 (117) 100 Room Air Orders Orders Basic Metabolic Panel (Bmp) (04/03/17 23:18) Complete Blood Count With Diff (04/03/17 23:18) Iv Access Insert/Monitor (04/03/17 23:18) Ketorolac Inj (Toradol Inj) (04/03/17 23:30) Ondansetron Inj (Zofran Inj) (04/03/17 23:30) Sodium Chloride 0.9% Flush (Ns Flush) (04/03/17 23:30) Hydromorphone Pf Inj (Dilaudid Pf Inj) (04/03/17 23:30) NPO (04/03/17 23:18) Ct Abd/Pel W/O Iv Contrast (04/03/17 ) Us Testicles W Doppler (04/04/17 ) Hydromorphone Pf Inj (Dilaudid Pf Inj) (04/04/17 01:00) Ed Discharge Order (04/04/17 02:32) Labs Laboratory Tests Test 04/03/17 23:20 White Blood Count 11.4 TH/MM3 Red Blood Count 5.24 MIL/MM3 Hemoglobin 15.6 GM/DL Hematocrit 43.4 % Mean Corpuscular Volume 82.8 FL Mean Corpuscular Hemoglobin 29.7 PG Mean Corpuscular Hemoglobin Concent 35.9 % Red Cell Distribution Width 13.8 % Platelet Count 252 TH/MM3 Mean Platelet Volume 8.2 FL Neutrophils (%) (Auto) 66.8 % Lymphocytes (%) (Auto) 24.4 % Monocytes (%) (Auto) 7.6 % Eosinophils (%) (Auto) 0.5 % Basophils (%) (Auto) 0.7 % Neutrophils # (Auto) 7.6 TH/MM3 Lymphocytes # (Auto) 2.8 TH/MM3 Monocytes # (Auto) 0.9 TH/MM3 Eosinophils # (Auto) 0.1 TH/MM3 Basophils # (Auto) 0.1 TH/MM3 CBC Comment DIFF FINAL Differential Comment Blood Urea Nitrogen 15 MG/DL Creatinine 1.04 MG/DL Random Glucose 312 MG/DL Calcium Level 8.5 MG/DL Sodium Level 135 MEQ/L Potassium Level 4.2 MEQ/L Chloride Level 102 MEQ/L Carbon Dioxide Level 25.6 MEQ/L Anion Gap 7 MEQ/L Estimat Glomerular Filtration Rate 79 ML/MIN MDM Medical Decision Making Medical Screen Exam Complete: Yes Emergency Medical Condition: Yes Medical Record Reviewed: Yes Interpretation(s) Vital Signs Date Time Temp Pulse Resp B/P (MAP) Pulse Ox O2 Delivery O2 Flow Rate FiO2 04/03/17 22:58 97.5 91 20 166/93 (117) 100 Room Air Last Impressions Scrotum Ultrasound 04/04/17 0000 Signed Impressions: Service Date/Time: Tuesday, April 04, 2017 00:57 - CONCLUSION: Stable examination. Perry Alves MD Abdomen/Pelvis CT 04/03/17 0000 Signed Impressions: Service Date/Time: Tuesday, April 04, 2017 00:07 - CONCLUSION: 1. Diverticulosis is seen without definite evidence of diverticulitis. 2. Nonobstructing left renal calculi are present. 3. Marked hepatic steatosis. 4. Umbilical hernia and bilateral fat containing inguinal hernias are noted. Perry Alves MD CBC & BMP Diagram 04/03/17 23:20 Calcium Level 8.5 Differential Diagnosis Testicular torsion, epididymoorchitis, inguinal hernia, UTI, urethritis Narrative Course IV access obtained specimens collected and sent for resulting patient administered Dilaudid 1 mg IV along with Zofran Toradol 30 mg IV and status ultrasound of the testicle with Doppler ordered CT kidney stone protocol ordered to evaluate for renal colic and obstructive uropathy CT kidney stone protocol negative for ureterolithiasis or obstructive uropathy no hydronephrosis or hydroureter also bilateral inguinal hernias fat containing hernia with obstruction Ultrasound testicle per reading radiologist no torsion good blood flow to the testicle and no epididymoorchitis or hydrocele or hernia Patient received 1 extra dose of pain medication and noted improvement of symptoms and is stable for outpatient management and follow-up with urologist Diagnosis Primary Impression: Scrotum pain Referrals: Urologist 2 days Patient Instructions: General Instructions, Narcotic given in the ED Additional Instructions: Follow-up with urologist Take medication as prescribed No work 2 days Return to the emergency department for any concerns or change in condition Med/Other Pt SpecificInfo: Prescription(s) given Scripts Ondansetron Odt (Zofran Odt) 4 Mg Tab 4 MG SL Q6HR Y for Nausea/Vomiting, #10 TAB 0 Refills Prov: Charity Shaw MD 04/04/17 Tramadol (Ultram) 50 Mg Tab 50 MG PO Q6H Y for PAIN, #15 TAB 0 Refills Prov: Charity Shaw MD 04/04/17 Disposition: 01 DISCHARGE HOME Condition: Stable Charity Shaw MD Apr 03, 2017 23:25
[2017-04-03] MEDS ORDERED: ONDANSETRON HCL 4 MG/2 ML VIAL IVP ONE (23:30)
[2017-04-03] MEDS ORDERED: SODIUM CHLORIDE 0.9% FLUSH 10 ML FLUSH IVF PRN (23:30)
[2017-04-03] MEDS ORDERED: KETOROLAC TROMETHAMINE 30 MG/ML (IVP) VIAL IVP ONE (23:30)
[2017-04-03] MEDS ORDERED: HYDROmorphone HCL PF 1 MG/ML VIAL IV PUSH ONE (23:30)
[2017-04-04 00:10] LABS: AUTOMATED NEUTROPHIL # 7.6 TH/MM3 (1.8-7.7); BASOPHIL # 0.1 TH/MM3 (0-0.2); BASOPHIL % 0.7 % (0.0-2.0); EOSINOPHIL # 0.1 TH/MM3 (0-0.4); EOSINOPHIL % 0.5 % (0.0-4.0); HEMATOCRIT 43.4 % (39.0-51.0); HEMO FLAGS DIFF FINAL; LYMPH % 24.4 % (9.0-44.0); LYMPHOCYTE # 2.8 TH/MM3 (1.0-4.8); MEAN CELL VOLUME 82.8 FL (80.0-100.0); MEAN CORPUSCULAR HEMOGLOBIN 29.7 PG (27.0-34.0); MEAN CORPUSCULAR HGB CONC 35.9 % (32.0-36.0); MONO % 7.6 % (0.0-8.0); NEUT % 66.8 % (16.0-70.0); PLATELET COUNT 252 TH/MM3 (150-450); RED BLOOD COUNT 5.24 MIL/MM3 (4.50-5.90); RED CELL DISTRIBUTION WIDTH 13.8 % (11.6-17.2); WHITE BLOOD COUNT 11.4 TH/MM3 (4.0-11.0)
--- NOTE | 2017-04-04 00:24 | RADRPT ---
EXAM DATE/TIME: 04/04/2017 00:07 [facility] COMPARISON: CT ABDOMEN & PELVIS W/O CONTRAST, March 05, 2017, 18:44. INDICATIONS : Groin pain; possible renal calculi. ORAL CONTRAST: No oral contrast ingested. RADIATION DOSE: 13.55 CTDIvol (mGy) MEDICAL HISTORY : Hypertension. Renal calculi. Seizures. SURGICAL HISTORY : None. ENCOUNTER: Initial ACUITY: 1 day PAIN SCALE: 10/10 LOCATION: abdomen TECHNIQUE: Volumetric scanning of the abdomen and pelvis was performed. Using automated exposure control and ad justment of the mA and/or kV according to patient size, radiation dose was kept as low as reasonably achievable to obtain optimal diagnostic quality images. DICOM format image data is available electro nically for review and comparison. FINDINGS: There is marked hepatic steatosis. Gallbladder, spleen, pancreas, adrenal glands, right kidney unrema rkable. Nonobstructing left midpole renal calculus measuring 2.1 mm on image 47. Nonobstructing left lower pole renal calculus measuring 2.1 mm on image 58. Fat containing umbilical hernia. Urinary blad javy unremarkable. There are bilateral fat containing inguinal hernias. There is diverticulosis of the sigmoid colon and descending colon. Diverticuli are also noted in the transverse colon. The appendix is normal. There is no adenopathy. The osseous structures are intact. CONCLUSION: 1. Diverticulosis is seen without definite evidence of diverticulitis. 2. Nonobstructing left renal calculi are present. 3. Marked hepatic steatosis. 4. Umbilical hernia and bilateral fat containing inguinal hernias are noted. Perry Alves MD on April 04, 2017 at 0:21 Board Certified Radiologist. This report was verified electronically.
[2017-04-04 00:39] LABS: BICARBONATE 25.6 MEQ/L (21.0-32.0); POTASSIUM 4.2 MEQ/L (3.5-5.1)
[2017-04-04] MEDS ORDERED: HYDROmorphone HCL PF 1 MG/ML VIAL IV PUSH ONE (01:00)
--- NOTE | 2017-04-04 02:18 | RADRPT ---
EXAM DATE/TIME: 04/04/2017 00:57 [facility] COMPARISON: US TESTICLE W/DOPPLER, January 25, 2017, 16:27. INDICATIONS : Scrotal pain. MEDICAL HISTORY : Hypertension. Renal calculi. Left testicular torsion. Neuropathy. Sleep apnea. Pancreatitis. Diabetes . Anxiety. Shingles. SURGICAL HISTORY : Inguinal hernia repair. Left orchiectomy. Spine surgery. ENCOUNTER: [place] ACUITY: 1 day PAIN SCORE: 8/10 LOCATION: Bilateral scrotum. MEASUREMENTS: RIGHT TESTICLE: 3.8 x 3.4 x 3.0cm LEFT TESTICLE: Surgically absent. FINDINGS: The patient has a history of left orchiectomy inguinal hernia repair. A moderate right-sided hydrocel e is present with septation and debris. There is normal blood flow to the testicle on color Doppler i maging. An epididymal head cyst measuring 6 mm is present. A testicular appendage measuring 5.2 mm is noted. A 9.4 mm epididymal cyst is also seen. The epididymal head is prominent in size. This is stab le without hypervascularity. There is a stable echogenic nodule within the right testicle measuring 4 .4 mm. No blood flow on color Doppler imaging. CONCLUSION: Stable examination. Perry Alves MD on April 04, 2017 at 2:15 Board Certified Radiologist. This report was verified electronically.
[2017-04-04] MEDS ORDERED: TRAM50 PO (02:34)
[2017-04-04] MEDS ORDERED: ZOFR4TAB3 SL (02:34)
== END 2017-04-04 03:16 | disposition home or self-care (01) ==
LOC: NEPC 22:55
DX: N50.82 Scrotal pain (principal); K40.00 Bilateral inguinal hernia, with obstruction, without gangrene, not specified as recurrent; K42.9 Umbilical hernia without obstruction or gangrene; K76.0 Fatty (change of) liver, not elsewhere classified; N20.0 Calculus of kidney; E11.9 Type 2 diabetes mellitus without complications; Z79.4 Long term (current) use of insulin
CPT/HCPCS: 74176; 76870; 80048; 85025; 93975; 96374; 96375; 96376; 99285; J1170; J1885; J2405

== ENCOUNTER 2017-05-20 21:22 | Emergency (ER) | payer OTHER ==
[~2017-05-20] VITALS: Ht 182.9 cm; Wt 95.0 kg
[~2017-05-20 21:22] MED LIST changes: +TRAM50 PO; +ZOFR4TAB3 SL
[2017-05-20 21:24] VITALS: BP 189/110; PULSE 114; RESP 20; TEMP 96.7; O2SAT 98
[2017-05-20] MEDS ORDERED: SODIUM CHLOR 0.9% 1000 ML INJ 1,000 ML IV ONE (23:15)
[2017-05-20] MEDS ORDERED: KETOROLAC TROMETHAMINE 30 MG/ML (IVP) VIAL IV PUSH ONE (23:15)
[2017-05-20] MEDS ORDERED: MORPHINE SULFATE 4 MG/ML INJ IV PUSH ONE (23:15)
[2017-05-20 23:20] LABS: BILIRUBIN, URINE NEG (NEG); BLOOD, URINE NEG (NEG); GLUCOSE,URINE 300 mg/dL (NEG); KETONE, URINE NEG (NEG); MUCUS URINE FEW /lpf (OCC); NITRITE,URINE NEG (NEG); PH, URINE 5.5 (5.0-8.5); URINE COLOR YELLOW (YELLW/STRAW); URINE LEUKOCYTE ESTERASE NEG (NEG)
[2017-05-20 23:43] LABS: AUTOMATED NEUTROPHIL # 6.6 TH/MM3 (1.8-7.7); BASOPHIL # 0.1 TH/MM3 (0-0.2); BASOPHIL % 0.9 % (0.0-2.0); EOSINOPHIL # 0.1 TH/MM3 (0-0.4); EOSINOPHIL % 1.4 % (0.0-4.0); HEMATOCRIT 43.9 % (39.0-51.0); HEMOGLOBIN 15.7 GM/DL (13.0-17.0); MEAN CELL VOLUME 81.4 FL (80.0-100.0); MEAN CORPUSCULAR HGB CONC 35.6 % (32.0-36.0); MONO % 7.6 % (0.0-8.0); MONOCYTE # 0.8 TH/MM3 (0-0.9); NEUT % 62.1 % (16.0-70.0); PLATELET COUNT 238 TH/MM3 (150-450); RED CELL DISTRIBUTION WIDTH 13.5 % (11.6-17.2); WHITE BLOOD COUNT 10.6 TH/MM3 (4.0-11.0)
[2017-05-21 00:05] LABS: ALBUMIN 3.7 GM/DL (3.4-5.0); AST (GOT) 28 U/L (15-37); BICARBONATE 26.7 MEQ/L (21.0-32.0); BLOOD UREA NITROGEN 13 MG/DL (7-18); CALCIUM 9.1 MG/DL (8.5-10.1); CHLORIDE 103 MEQ/L (98-107); CREATININE 0.89 MG/DL (0.60-1.30); GLOMERULAR FILTRATION RATE 94 ML/MIN (>89); GLUCOSE,RANDOM 171 MG/DL (74-106); LIPASE 164 U/L (73-393); SODIUM (NA) 135 MEQ/L (136-145)
[2017-05-21 00:06] LABS: ALT (GPT) 40 U/L (12-78)
[2017-05-21 00:08] LABS: ALKALINE PHOSPHATASE 84 U/L (45-117); TOTAL BILIRUBIN ADULT 0.4 MG/DL (0.2-1.0)
[2017-05-21] MEDS ORDERED: ONDANSETRON HCL 4 MG/2 ML VIAL ONE (01:11)
--- NOTE | 2017-05-21 01:33 | RADRPT ---
EXAM DATE/TIME: 05/21/2017 01:03 [facility] COMPARISON: CT ABDOMEN & PELVIS W/O CONTRAST, April 04, 2017, 0:07. INDICATIONS : Bilateral flank pain. ORAL CONTRAST: No oral contrast ingested. RADIATION DOSE: 29.82 CTDIvol (mGy) ; Patient body habitus; High dose protocol MEDICAL HISTORY : Renal calculi. Pancreatitis. Hernia, inguinal.Diabetes. SURGICAL HISTORY : Inguinal hernia repair. ENCOUNTER: Initial ACUITY: 1 day PAIN SCALE: 8/10 LOCATION: Bilateral flank TECHNIQUE: Volumetric scanning of the abdomen and pelvis was performed. Using automated exposure control and ad justment of the mA and/or kV according to patient size, radiation dose was kept as low as reasonably achievable to obtain optimal diagnostic quality images. DICOM format image data is available electro nically for review and comparison. FINDINGS: LOWER LUNGS: The visualized lower lungs are clear. LIVER: There is diffuse decreased density throughout the liver. SPLEEN: Normal size without lesion. PANCREAS: Within normal limits. KIDNEYS: Normal in size and shape. There is no mass or hydronephrosis. There are 2 small nonobstructing left renal stones measuring up to 3 mm. ADRENAL GLANDS: Within normal limits. VASCULAR: There is no aortic aneurysm. BOWEL/MESENTERY: There are diverticula seen throughout the colon. Significant inflammatory change is not seen. ABDOMINAL WALL: There is a midline umbilical hernia containing mesenteric fat the fat measuring 2.9 cm. RETROPERITONEUM: There is no lymphadenopathy. BLADDER: No wall thickening or mass. REPRODUCTIVE: Within normal limits. INGUINAL: There is prominent fat extending into the inguinal canal regions bilaterally more prominent left pote ntially representing hernias. There is a 1.7 cm cystic area seen in the left external iliac region. T his was present previously. MUSCULOSKELETAL: Within normal limits for patient age. CONCLUSION: 1. Acute abnormality is not seen. 2. Hepatic steatosis. 3. Nonobstructing small left renal stones. 4. Colonic diverticula. 5. An umbilical hernia containing mesenteric fat and prominent fat in the inguinal canal regions pote ntially representing inguinal hernias. No bowel seen in the these regions. 6. 1.7 cm cystic area seen at the left external iliac region. This may represent a postoperative travon rufus or seroma if the patient has had prior inguinal hernia surgery. This is unchanged. Luis E Dominguez MD on May 21, 2017 at 1:19 Board Certified Radiologist. This report was verified electronically.
--- NOTE | 2017-05-21 01:53 | PD ---
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 Coming in complaining of right-sided pain that radiates to the right lateral aspect of his abdomen."10/10" pain. He is not diaphoretic he is not vomiting, he has no signs of sepsis he is nontoxic-appearing but he is reporting extreme pain. Initially I review all the CAT scans that a been done on him close to 20 in the last 2 years and never found one that showed any obstructive renal stones in the ureter there were a few tiny specks of stones in the kidneys themselves on all he CAT scans I was able to review prior to seeing the patient. I explained the patient that with repeat CAT scans that is a high amount of radiation accumulation and that it is not indicated unless there is some reason urine has no red cells in it and I tell him that there is no need at this point to do a CAT scan. I elected instead give him Toradol IV to morphine IV a liter of fluid and reevaluate. Main complaint is burning radiating right-sided pain that is constant 10 out of 10 causing the feeling he can't breathe. Reviewing his charts he is coming in with the same complaint many times over the last 2 years. PFSH Past Medical History Hx Anticoagulant Therapy: No Arthritis: No Asthma: No Autoimmune Disease: No Anxiety: No Depression: No Heart Rhythm Problems: No Cancer: No Cardiovascular Problems: No High Cholesterol: No Chemotherapy: No Chest Pain: No Congestive Heart Failure: No COPD: No Cerebrovascular Accident: No Diabetes: Yes Patient Takes Glucophage: No Diminished Hearing: No Endocrine: No Gastrointestinal Disorders: Yes (kidney stones, pancreatitis ) GERD: No Genitourinary: No Headaches: No Hepatitis: No Hiatal Hernia: No Heparin Induced Thrombocytopen: No Hypertension: Yes ( ) Immune Disorder: Yes Inguinal Hernia: Yes Implanted Vascular Access Dvce: No Kidney Stones: Yes Medical other: No (PANCREATITIS) Musculoskeletal: Yes (CHRONIC BACK PAIN, hip problems) Neurologic: Yes (neuropathy) Psychiatric: Yes (anxiety) Reproductive: No Respiratory: Yes (sleep apnea ) Immunizations Current: Yes Migraines: No Pancreatitis: Yes Radiation Therapy: No Renal Failure: No Seizures: No Shingles: Yes Sickle Cell Disease: No Sleep Apnea: Yes (NO CPAP USE) Thyroid Disease: No Ulcer: No Tetanus Vaccination: < 5 Years Influenza Vaccination: No Past Surgical History Abdominal Surgery: Yes (HERNIA REPAIR) AICD: No Arteriovenous Shunt: No Body Medical Devices: NONE Cardiac Surgery: No Ear Surgery: No Endocrine Surgery: No Eye Surgery: No Genitourinary Surgery: No Gynecologic Surgery: No Insulin Pump: No Joint Replacement: No Neurologic Surgery: Yes (spine surgery) Oral Surgery: No Pacemaker: No Thoracic Surgery: No Other Surgery: Yes (1 testical removed ) Social History Alcohol Use: No Tobacco Use: No Substance Use: No Allergies-Medications (Allergen,Severity, Reaction): Coded Allergies: diatrizoate meglumine (Verified Allergy, Mild, Rash, 05/20/17) gadobenic acid (Verified Allergy, Mild, Rash, 05/20/17) gadodiamide (Verified Allergy, Mild, Rash, 05/20/17) gadoteridol (Verified Allergy, Mild, Rash, 05/20/17) iodixanol (Verified Allergy, Mild, Rash, 05/20/17) iohexol (Verified Allergy, Mild, Rash, 05/20/17) Reported Meds & Prescriptions Reported Meds & Active Scripts Active Tramadol (Tramadol HCl) 50 Mg Tab 50 Mg PO Q4H PRN Ibuprofen 800 Mg Tab 800 Mg PO Q6HR PRN Zofran Odt (Ondansetron Odt) 4 Mg Tab 4 Mg SL Q6HR PRN Ultram (Tramadol HCl) 50 Mg Tab 50 Mg PO Q6H PRN Phenergan (Promethazine HCl) 25 Mg Tablet 25 Mg PO Q6H PRN [place] (Hydrocodone-Acetaminophen) 5 Mg-325 Mg Tab 1 Tab PO Q4H PRN Novolog Inj (Insulin Aspart) 1,000 Unit/10 Ml Vial 1-9 Units SQ ACHS sugars less than 70,(0)units; sugars 150-199,(1) unit; sugars 200-249,(3) units; sugars 250-299,(5) units; sugars 300-349,(7) units; sugars greater than 349,(9) units inform PCP if < 70 or >400. Levemir Inj (Insulin Detemir) 1,000 unit/ 10 ML Vial 10 Units SQ Q12HR 30 Days Do not mix with any other Insulin. Lopid (Gemfibrozil) 600 Mg Tab 600 Mg PO BIDAC 30 Days Take 30 minutes prior to breakfast and dinner Review of Systems Except as stated in HPI: all other systems reviewed are Neg Physical Exam Narrative GENERAL: reporting severe pain but no presentation of pain SKIN: Warm and dry. HEAD: Atraumatic. Normocephalic. EYES: Pupils equal and round. No scleral icterus. No injection or drainage. ENT: No nasal bleeding or discharge. Mucous membranes pink and moist. NECK: Trachea midline. No JVD. CARDIOVASCULAR: Regular rate and rhythm. RESPIRATORY: No accessory muscle use. Clear to auscultation. Breath sounds equal bilaterally. GASTROINTESTINAL: Abdomen right sided CVA to right lateral abdo pain reported mild obese nondistended. Hepatic and splenic margins not palpable. MUSCULOSKELETAL: Extremities without clubbing, cyanosis, or edema. No obvious deformities. NEUROLOGICAL: Awake and alert. No obvious cranial nerve deficits. Motor grossly within normal limits. Five out of 5 muscle strength in the arms and legs. Normal speech. PSYCHIATRIC: Appropriate mood and affect; insight and judgment normal. Data Data Last Documented VS Vital Signs Date Time Temp Pulse Resp B/P (MAP) Pulse Ox O2 Delivery O2 Flow Rate FiO2 05/21/17 02:00 80 16 150/88 (108) 99 05/20/17 21:24 96.7 Room Air Orders Orders Urinalysis - C+S If Indicated (05/20/17 22:38) Sodium Chlor 0.9% 1000 Ml Inj (Ns 1000 M (05/20/17 23:15) Lipase (05/20/17 23:04) Complete Blood Count With Diff (05/20/17 23:04) Comprehensive Metabolic Panel (05/20/17 23:04) Ketorolac Inj (Toradol Inj) (05/20/17 23:15) Morphine Inj (Morphine Inj) (05/20/17 23:15) Ct Abd/Pel W/O Iv Contrast (05/21/17 ) Ondansetron Inj (Zofran Inj) (05/21/17 01:11) Ed Discharge Order (05/21/17 01:59) Labs Laboratory Tests Test 05/20/17 22:55 White Blood Count 10.6 TH/MM3 Red Blood Count 5.40 MIL/MM3 Hemoglobin 15.7 GM/DL Hematocrit 43.9 % Mean Corpuscular Volume 81.4 FL Mean Corpuscular Hemoglobin 29.0 PG Mean Corpuscular Hemoglobin Concent 35.6 % Red Cell Distribution Width 13.5 % Platelet Count 238 TH/MM3 Mean Platelet Volume 8.0 FL Neutrophils (%) (Auto) 62.1 % Lymphocytes (%) (Auto) 28.0 % Monocytes (%) (Auto) 7.6 % Eosinophils (%) (Auto) 1.4 % Basophils (%) (Auto) 0.9 % Neutrophils # (Auto) 6.6 TH/MM3 Lymphocytes # (Auto) 3.0 TH/MM3 Monocytes # (Auto) 0.8 TH/MM3 Eosinophils # (Auto) 0.1 TH/MM3 Basophils # (Auto) 0.1 TH/MM3 CBC Comment DIFF FINAL Differential Comment Urine Color YELLOW Urine Turbidity CLEAR Urine pH 5.5 Urine Specific [place] 1.017 Urine Protein NEG mg/dL Urine Glucose (UA) 300 mg/dL Urine Ketones NEG mg/dL Urine Occult Blood NEG Urine Nitrite NEG Urine Bilirubin NEG Urine Urobilinogen LESS THAN 2.0 MG/DL Urine Leukocyte Esterase NEG Urine RBC LESS THAN 1 /hpf Urine WBC 1 /hpf Urine Mucus FEW /lpf Microscopic Urinalysis Comment CULT NOT INDICATED Blood Urea Nitrogen 13 MG/DL Creatinine 0.89 MG/DL Random Glucose 171 MG/DL Total Protein 8.0 GM/DL Albumin 3.7 GM/DL Calcium Level 9.1 MG/DL Alkaline Phosphatase 84 U/L Aspartate Amino Transf (AST/SGOT) 28 U/L Alanine Aminotransferase (ALT/SGPT) 40 U/L Total Bilirubin 0.4 MG/DL Sodium Level 135 MEQ/L Potassium Level 3.8 MEQ/L Chloride Level 103 MEQ/L Carbon Dioxide Level 26.7 MEQ/L Anion Gap 5 MEQ/L Estimat Glomerular Filtration Rate 94 ML/MIN Lipase 164 U/L [facility] Medical Decision Making Medical Screen Exam Complete: Yes Emergency Medical Condition: Yes Differential Diagnosis I feel his multiple CT and negative finds over [address] in our ER alone, I will treat pain and try to discharge after pain broken, toradol and 4mg of morphine, DD renal stones vs appendicitis vs muscle strain , vs fictitious disorder or addicted pain seeking behavior .. Narrative Course I tried to avoid repeat radiation of CT and I explained this to patient but after toradol and Morphine 1 dose and pt UA no blood , and no clinical signs of obstructing renal stones , I tried to ressure outpt follow up better than CT again , pt insisted and CT done showing no new findings compared to all other CTs done at [place] , after all studies do not indicate need for admission or further er eval d/c with Motrin and 6 tabs of tramadol for break through pain. Diagnosis Primary Impression: Pain in the abdomen Qualified Codes: R10.84 - Generalized abdominal pain Patient Instructions: General Instructions Scripts Tramadol (Tramadol) 50 Mg Tab 50 MG PO Q4H Y for PAIN, #6 TAB 0 Refills Prov: David Evangelista MD 05/21/17 Ibuprofen (Ibuprofen) 800 Mg Tab 800 MG PO Q6HR Y for PAIN, #40 TAB 0 Refills Prov: David Evangelista MD 05/21/17 Disposition: 01 DISCHARGE HOME Condition: Good David Evangelista MD May 21, 2017 01:53
[2017-05-21] MEDS ORDERED: IBUP1TAB7 PO (01:58)
[2017-05-21] MEDS ORDERED: TRAM50TA PO (01:59)
[2017-05-21 02:00] VITALS: BP 150/88
== END 2017-05-21 02:00 | disposition home or self-care (01) ==
LOC: NEPC 21:22
DX: R10.84 Generalized abdominal pain (principal); K57.30 Diverticulosis of large intestine without perforation or abscess without bleeding; K76.0 Fatty (change of) liver, not elsewhere classified; I10 Essential (primary) hypertension; E11.9 Type 2 diabetes mellitus without complications; K40.90 Unilateral inguinal hernia, without obstruction or gangrene, not specified as recurrent; Z87.442 Personal history of urinary calculi; Z88.8 Allergy status to other drugs, medicaments and biological substances; Z79.899 Other long term (current) drug therapy
CPT/HCPCS: 74176; 80053; 81001; 83690; 85025; 96361; 96374; 96375; 99285; J1885; J2270; J2405; J7030

== ENCOUNTER 2017-07-19 13:11 | Emergency (ER) | payer OTHER ==
[~2017-07-19 13:11] MED LIST changes: +IBUP1TAB7 PO; +TRAM50TA PO
== END 2017-07-19 16:09 | disposition left against medical advice (07) ==
LOC: NED 13:11
DX: R10.9 Unspecified abdominal pain (principal)
CPT/HCPCS: 99281

== ENCOUNTER 2017-07-26 18:47 | Emergency (ER) | payer OTHER ==
[~2017-07-26] VITALS: Ht 180.3 cm; Wt 118.2 kg
[2017-07-26 19:21] VITALS: BP 174/101; PULSE 97; RESP 18; TEMP 98.4; O2SAT 98
--- NOTE | 2017-07-26 20:52 | PD ---
HPI Chief Complaint: Flank/Kidney Pain Time Seen by Provider: 20:52 Travel History International Travel<30 days: No Contact w/Intl Traveler<30days: No Traveled to known affect area: No History of Present Illness HPI 42-year-old male came to the emergency room with history of left flank pain. Patient says that he has history of frequent kidney stones. He sees Dr. Alvarez. This time his symptoms started about a week ago. He went to the [facility] in [facility] couple days ago where a CAT scan was done and patient was discharged home on hydrocodone. Patient says this afternoon the pain started to come back again. Currently he looks uncomfortable. No aggravating or relieving factors identified. He has noticed some specks of blood in his urine. No history of fever or chills. Vital signs are relatively stable. Pain radiates down to the left lower quadrant PFSH Past Medical History Narrative Medical List of his past medical, surgical, social and family history reviewed from the nursing note. Hx Anticoagulant Therapy: No Arthritis: No Asthma: No Autoimmune Disease: No Anxiety: No Depression: No Heart Rhythm Problems: No Cancer: No Cardiovascular Problems: No High Cholesterol: No Chemotherapy: No Chest Pain: No Congestive Heart Failure: No COPD: No Cerebrovascular Accident: No Diabetes: Yes Diminished Hearing: No Endocrine: No Gastrointestinal Disorders: Yes (kidney stones, pancreatitis ) GERD: No Genitourinary: No Headaches: No Hepatitis: No Hiatal Hernia: No Heparin Induced Thrombocytopen: No Hypertension: Yes ( ) Immune Disorder: Yes Inguinal Hernia: Yes Implanted Vascular Access Dvce: No Kidney Stones: Yes Musculoskeletal: Yes (CHRONIC BACK PAIN, hip problems) Neurologic: Yes (neuropathy) Psychiatric: Yes (anxiety) Reproductive: No Respiratory: Yes (sleep apnea ) Immunizations Current: Yes Migraines: No Pancreatitis: Yes Radiation Therapy: No Renal Failure: No Seizures: No Shingles: Yes Sickle Cell Disease: No Sleep Apnea: Yes (NO CPAP USE) Thyroid Disease: No Ulcer: No Past Surgical History Abdominal Surgery: Yes (HERNIA REPAIR) AICD: No Arteriovenous Shunt: No Body Medical Devices: NONE Cardiac Surgery: No Ear Surgery: No Endocrine Surgery: No Eye Surgery: No Genitourinary Surgery: No Gynecologic Surgery: No Insulin Pump: No Joint Replacement: No Neurologic Surgery: Yes (spine surgery) Oral Surgery: No Pacemaker: No Thoracic Surgery: No Other Surgery: Yes (1 testical removed ) Social History Alcohol Use: No Tobacco Use: No Substance Use: No Allergies-Medications (Allergen,Severity, Reaction): Coded Allergies: diatrizoate meglumine (Verified Allergy, Mild, Rash, 05/20/17) gadobenic acid (Verified Allergy, Mild, Rash, 05/20/17) gadodiamide (Verified Allergy, Mild, Rash, 05/20/17) gadoteridol (Verified Allergy, Mild, Rash, 05/20/17) iodixanol (Verified Allergy, Mild, Rash, 05/20/17) iohexol (Verified Allergy, Mild, Rash, 05/20/17) Comments List of his allergies reviewed from the nursing note. Reported Meds & Prescriptions Reported Meds & Active Scripts Active Ibuprofen 800 Mg Tab 800 Mg PO Q6HR PRN Novolog Inj (Insulin Aspart) 1,000 Unit/10 Ml Vial 1-9 Units SQ ACHS sugars less than 70,(0)units; sugars 150-199,(1) unit; sugars 200-249,(3) units; sugars 250-299,(5) units; sugars 300-349,(7) units; sugars greater than 349,(9) units inform PCP if < 70 or >400. Narrative Medication List of his home medications reviewed from the nursing note. Review of Systems Except as stated in HPI: all other systems reviewed are Neg Genitourinary: Positive: Flank Pain Physical Exam Narrative GENERAL: Awake, alert, anxious, moderate to SKIN: Focused skin assessment warm/dry. HEAD: Atraumatic. Normocephalic. EYES: Pupils equal and round. No scleral icterus. No injection or drainage. ENT: No nasal bleeding or discharge. Mucous membranes pink and moist. NECK: Trachea midline. No JVD. CARDIOVASCULAR: Regular rate and rhythm. No murmur appreciated. RESPIRATORY: No accessory muscle use. Clear to auscultation. Breath sounds equal bilaterally. GASTROINTESTINAL: Abdomen soft, non-tender, nondistended. Hepatic and splenic margins not palpable. MUSCULOSKELETAL: No obvious deformities. No clubbing. No cyanosis. No edema. NEUROLOGICAL: Awake and alert. No obvious cranial nerve deficits. Motor grossly within normal limits. Normal speech. PSYCHIATRIC: Appropriate mood and affect; insight and judgment normal. Data Data Last Documented VS Vital Signs Date Time Temp Pulse Resp B/P (MAP) Pulse Ox O2 Delivery O2 Flow Rate FiO2 07/26/17 23:05 96 18 174/90 (118) 100 07/26/17 22:09 Room Air 07/26/17 19:21 98.4 Orders Orders Complete Blood Count With Diff (07/26/17 19:23) Comprehensive Metabolic Panel (07/26/17 19:23) Urinalysis - C+S If Indicated (07/26/17 19:23) Ct Abd/Pel W/O Iv Contrast (07/26/17 ) Morphine Inj (Morphine Inj) (07/26/17 21:15) Ketorolac Inj (Toradol Inj) (07/26/17 21:15) Sodium Chlor 0.9% 1000 Ml Inj (Ns 1000 M (07/26/17 22:15) Insulin Human Regular Inj (Novolin R Inj (07/26/17 22:45) Labs Laboratory Tests Test 07/26/17 21:00 07/26/17 21:15 White Blood Count 9.5 TH/MM3 Red Blood Count 4.94 MIL/MM3 Hemoglobin 15.4 GM/DL Hematocrit 41.3 % Mean Corpuscular Volume 83.5 FL Mean Corpuscular Hemoglobin 31.2 PG Mean Corpuscular Hemoglobin Concent 37.3 % Red Cell Distribution Width 14.0 % Platelet Count 240 TH/MM3 Mean Platelet Volume 8.1 FL Neutrophils (%) (Auto) 63.7 % Lymphocytes (%) (Auto) 27.9 % Monocytes (%) (Auto) 6.8 % Eosinophils (%) (Auto) 0.8 % Basophils (%) (Auto) 0.8 % Neutrophils # (Auto) 6.1 TH/MM3 Lymphocytes # (Auto) 2.7 TH/MM3 Monocytes # (Auto) 0.6 TH/MM3 Eosinophils # (Auto) 0.1 TH/MM3 Basophils # (Auto) 0.1 TH/MM3 CBC Comment AUTO DIFF Differential Comment AUTO DIFF CONFIRMED Platelet Estimate NORMAL Platelet Morphology Comment NORMAL Blood Urea Nitrogen 15 MG/DL Creatinine 1.27 MG/DL Random Glucose 405 MG/DL Total Protein 7.5 GM/DL Albumin 3.5 GM/DL Calcium Level 8.6 MG/DL Alkaline Phosphatase 85 U/L Aspartate Amino Transf (AST/SGOT) 31 U/L Alanine Aminotransferase (ALT/SGPT) 31 U/L Total Bilirubin 0.4 MG/DL Sodium Level 135 MEQ/L Potassium Level 4.4 MEQ/L Chloride Level 101 MEQ/L Carbon Dioxide Level 23.5 MEQ/L Anion Gap 11 MEQ/L Estimat Glomerular Filtration Rate 62 ML/MIN Urine Color LIGHT-YELLOW Urine Turbidity CLEAR Urine pH 5.5 Urine Specific [place] 1.027 Urine Protein NEG mg/dL Urine Glucose (UA) 1000 mg/dL Urine Ketones 10 mg/dL Urine Occult Blood LARGE Urine Nitrite NEG Urine Bilirubin NEG Urine Urobilinogen LESS THAN 2.0 MG/DL Urine Leukocyte Esterase NEG Urine RBC /hpf Urine WBC 4 /hpf Urine Squamous Epithelial Cells <1 /hpf Urine Mucus FEW /lpf Microscopic Urinalysis Comment CULT NOT INDICATED MDM Medical Decision Making Medical Screen Exam Complete: Yes Emergency Medical Condition: Yes Medical Record Reviewed: Yes Differential Diagnosis Renal colic, pyelonephritis, musculoskeletal pain Narrative Course 10:06 PM awaiting for the blood test result. UA shows some glucosuria and ketones but otherwise negative. CAT scan shows slight dilatation of the left ureter with the possibility of recent passage of a stone. Currently no obstructing stone is noticed. Patient was medicated for pain. If the blood test results are within normal limits patient will be discharged home. 10:56 PM the chemistry shows a blood glucose level of more than 400. I have ordered for insulin subcu. A repeat blood glucose will be done in an hour. Patient will be discharged home after that. 11:10 PM I was told that patient did not want to stay and wanted to leave before a repeat blood glucose was done. Wanted to go to [facility] since they had told him that he has kidney stones. Patient is in full capacity to make decisions for himself. He understood the risks of leaving. Procedures EKG Prior to Arrival: No Diagnosis Primary Impression: Chronic flank pain Additional Impressions: Glucosuria Hyperglycemia Referrals: Primary Care Physician Additional Instructions: Return to the ER if condition worsens or any other new concerns. Follow-up with your urologist Dr. Alvarez. He have to take medication for your diabetes since your blood sugar is quite high. Follow-up with your primary care as well. Med/Other Pt SpecificInfo: Prescription(s) given Disposition: 07 AGAINST MEDICAL ADVICE Condition: Serious Dea Wills MD Jul 26, 2017 20:52
[2017-07-26] MEDS ORDERED: MORPHINE SULFATE 8 MG/ML INJ IV PUSH ONE (21:15)
[2017-07-26] MEDS ORDERED: KETOROLAC TROMETHAMINE 30 MG/ML (IVP) VIAL IV PUSH ONE (21:15)
[2017-07-26 21:39] VITALS: BP 178/107; PULSE 89; RESP 20; O2SAT 98
--- NOTE | 2017-07-26 21:51 | RADRPT ---
EXAM DATE/TIME: 07/26/2017 21:26 [facility] COMPARISON: No previous studies available for comparison. INDICATIONS : Patient complains of left flank pain. ORAL CONTRAST: No oral contrast ingested. RADIATION DOSE: 26.12 CTDIvol (mGy) MEDICAL HISTORY : Hypertension. Pancreatitis. Renal calculi.diabetic SURGICAL HISTORY : hernia repair, ortho surgery,Orchiectomy ENCOUNTER: Initial ACUITY: 1 day PAIN SCALE: 5/10 LOCATION: Left flank TECHNIQUE: Volumetric scanning of the abdomen and pelvis was performed. Using automated exposure control and ad justment of the mA and/or kV according to patient size, radiation dose was kept as low as reasonably achievable to obtain optimal diagnostic quality images. DICOM format image data is available electro nically for review and comparison. FINDINGS: Mild fatty liver. Spleen, adrenals and pancreas are unremarkable. Right kidney unremarkable. Tiny non obstructing 2 mm calculus mid pole left kidney and 3 mm cyst lower pole left kidney. Minimal dilatati on of the left renal collecting system and ureter could be from recent stone passage. No current uret eral or bladder calculi are identified. There is a fat containing umbilical hernia measuring about 3 cm in diameter. No bowel obstruction. Th ere is colonic diverticulosis without evidence for diverticulitis. Appendix is normal. CONCLUSION: Minimal dilatation of the left ureter and renal collecting system relative to the right, probably fro m recent stone passage. No current ureteral or bladder calculus identified. Tiny nonobstructing calcu li in the left kidney as above. Mild fatty liver. Colonic diverticulosis. 3 cm fat containing umbilical hernia. Trey Owen MD on July 26, 2017 at 21:45 Board Certified Radiologist. This report was verified electronically.
[2017-07-26 21:52] LABS: BILIRUBIN, URINE NEG (NEG); BLOOD, URINE LARGE (NEG); GLUCOSE,URINE 1000 mg/dL (NEG); KETONE, URINE 10 mg/dL (NEG); MUCUS URINE FEW /lpf (OCC); NITRITE,URINE NEG (NEG); PH, URINE 5.5 (5.0-8.5); SQUAMOUS EPITHELIAL CELL URINE <1 /hpf (0-5); URINE COLOR LIGHT-YELLOW (YELLW/STRAW); URINE LEUKOCYTE ESTERASE NEG (NEG)
[2017-07-26 21:55] VITALS: BP 197/96; PULSE 89; RESP 19; O2SAT 98
[2017-07-26 22:00] LABS: AUTOMATED NEUTROPHIL # 6.1 TH/MM3 (1.8-7.7); BASOPHIL # 0.1 TH/MM3 (0-0.2); BASOPHIL % 0.8 % (0.0-2.0); EOSINOPHIL # 0.1 TH/MM3 (0-0.4); EOSINOPHIL % 0.8 % (0.0-4.0); HEMATOCRIT 41.3 % (39.0-51.0); HEMOGLOBIN 15.4 GM/DL (13.0-17.0); LYMPH % 27.9 % (9.0-44.0); LYMPHOCYTE # 2.7 TH/MM3 (1.0-4.8); MEAN CELL VOLUME 83.5 FL (80.0-100.0); MEAN CORPUSCULAR HEMOGLOBIN 31.2 PG (27.0-34.0); MEAN PLATELET VOLUME 8.1 FL (7.0-11.0); MONO % 6.8 % (0.0-8.0); MONOCYTE # 0.6 TH/MM3 (0-0.9); NEUT % 63.7 % (16.0-70.0); PLATELET COUNT 240 TH/MM3 (150-450); RED BLOOD COUNT 4.94 MIL/MM3 (4.50-5.90); WHITE BLOOD COUNT 9.5 TH/MM3 (4.0-11.0)
[2017-07-26 22:04] LABS: MEAN CORPUSCULAR HGB CONC 37.3 % (32.0-36.0)
[2017-07-26 22:09] VITALS: BP 149/87; PULSE 90; RESP 20; O2SAT 98
[2017-07-26] MEDS ORDERED: SODIUM CHLOR 0.9% 1000 ML INJ 1,000 ML IV ONE (22:15)
[2017-07-26 22:26] LABS: ALBUMIN 3.5 GM/DL (3.4-5.0); ALKALINE PHOSPHATASE 85 U/L (45-117); AST (GOT) 31 U/L (15-37); BICARBONATE 23.5 MEQ/L (21.0-32.0); BLOOD UREA NITROGEN 15 MG/DL (7-18); CALCIUM 8.6 MG/DL (8.5-10.1); CHLORIDE 101 MEQ/L (98-107); CREATININE 1.27 MG/DL (0.60-1.30); GLOMERULAR FILTRATION RATE 62 ML/MIN (>89); GLUCOSE,RANDOM 405 MG/DL (74-106); SODIUM (NA) 135 MEQ/L (136-145); TOTAL BILIRUBIN ADULT 0.4 MG/DL (0.2-1.0); TOTAL PROTEIN 7.5 GM/DL (6.4-8.2)
[2017-07-26 22:34] LABS: ALT (GPT) 31 U/L (12-78)
[2017-07-26] MEDS ORDERED: INSULIN HUMAN REGULAR 1,000 UNITS/10 ML VIAL SQ ONE (22:45)
[2017-07-26 23:05] VITALS: BP 174/90
== END 2017-07-26 23:10 | disposition left against medical advice (07) ==
LOC: NED 18:47 → NEPD 23:10
DX: R10.9 Unspecified abdominal pain (principal); G89.29 Other chronic pain; R81 Glycosuria; E11.65 Type 2 diabetes mellitus with hyperglycemia; Z79.4 Long term (current) use of insulin
CPT/HCPCS: 74176; 80053; 81001; 85025; 96361; 96372; 96374; 96375; 99284; J1815; J1885; J2270; J7030

== ENCOUNTER 2017-08-24 20:50 | Emergency (ER) | payer OTHER ==
[~2017-08-24] VITALS: Ht 180.3 cm; Wt 120.0 kg
[~2017-08-24 20:50] MED LIST changes: -GEMF600 PO; -LEVEMIR SQ; -NORC5TAB PO; -PROM25TA10 PO; -TRAM50 PO; -TRAM50TA PO; -ZOFR4TAB3 SL
[2017-08-24 21:01] VITALS: BP 156/98; PULSE 103; RESP 18; TEMP 97.6; O2SAT 99
[2017-08-24] MEDS ORDERED: SODIUM CHLOR 0.9% 1000 ML INJ 1,000 ML IV ONE ×2 (21:45→23:30)
[2017-08-24] MEDS ORDERED: METOCLOPRAMIDE HCL 10 MG/2 ML VIAL IV PUSH ONE (21:45)
[2017-08-24] MEDS ORDERED: diphenhydrAMINE HCL 50 MG/ML VIAL IV PUSH ONE (21:45)
--- NOTE | 2017-08-24 21:50 | PD ---
HPI Chief Complaint: Abdominal Pain Time Seen by Provider: 21:26 Travel History International Travel<30 days: No Contact w/Intl Traveler<30days: No Traveled to known affect area: No History of Present Illness HPI 42-year-old white male with a history of kidney stones, insulin dependent diabetes, hypertriglyceridemia, pancreatitis and chronic abdominal pain presents with complaints of upper abdominal pain after eating this evening. States the pain is in the upper abdomen with some radiation to his back. He states that he feels "toxic". He was seen by his urologist earlier today. He states that he has been passing kidney stones. He was seen in the emergency department earlier last week and had a CAT scan of his abdomen which revealed dilated ureter but no obvious obstructive uropathy. His laboratory tests were not within limits except for his elevated blood sugar of 400. Patient was treated and discharge. Patient states that he has not been running a fever but has felt hot. He denies any vomiting. Some nausea. Pain is moderate. Exacerbated by eating. No alleviating factors. He denies any lower abdominal pain. No dysuria, frequency or hematuria. He states that he did not check his blood sugar today. PFSH Past Medical History Narrative Medical Kidney stones, insulin-dependent diabetes, hypertriglyceridemia, chronic abdominal pain, pancreatitis Hx Anticoagulant Therapy: No Arthritis: No Asthma: No Autoimmune Disease: No Anxiety: No Depression: No Heart Rhythm Problems: No Cancer: No Cardiovascular Problems: No High Cholesterol: No Chemotherapy: No Chest Pain: No Congestive Heart Failure: No COPD: No Cerebrovascular Accident: No Diabetes: Yes Patient Takes Glucophage: No Diminished Hearing: No Endocrine: No Gastrointestinal Disorders: Yes (kidney stones, pancreatitis ) GERD: No Genitourinary: No Headaches: No Hepatitis: No Hiatal Hernia: No Heparin Induced Thrombocytopen: No Hypertension: Yes ( ) Immune Disorder: Yes Inguinal Hernia: Yes Implanted Vascular Access Dvce: No Kidney Stones: Yes Musculoskeletal: Yes (CHRONIC BACK PAIN, hip problems) Neurologic: Yes (neuropathy) Psychiatric: Yes (anxiety) Reproductive: No Respiratory: Yes (sleep apnea ) Immunizations Current: Yes Migraines: No Pancreatitis: Yes Radiation Therapy: No Renal Failure: No Seizures: No Shingles: Yes Sickle Cell Disease: No Sleep Apnea: Yes (NO CPAP USE) Thyroid Disease: No Ulcer: No Tetanus Vaccination: < 5 Years Influenza Vaccination: No Past Surgical History Abdominal Surgery: Yes (HERNIA REPAIR) AICD: No Arteriovenous Shunt: No Body Medical Devices: NONE Cardiac Surgery: No Ear Surgery: No Endocrine Surgery: No Eye Surgery: No Genitourinary Surgery: No Gynecologic Surgery: No Insulin Pump: No Joint Replacement: No Neurologic Surgery: Yes (spine surgery) Oral Surgery: No Pacemaker: No Thoracic Surgery: No Other Surgery: Yes (1 testical removed ) Social History Alcohol Use: No Tobacco Use: No Substance Use: No Allergies-Medications (Allergen,Severity, Reaction): Coded Allergies: diatrizoate meglumine (Verified Allergy, Mild, Rash, 08/24/17) gadobenic acid (Verified Allergy, Mild, Rash, 08/24/17) gadodiamide (Verified Allergy, Mild, Rash, 08/24/17) gadoteridol (Verified Allergy, Mild, Rash, 08/24/17) iodixanol (Verified Allergy, Mild, Rash, 08/24/17) iohexol (Verified Allergy, Mild, Rash, 08/24/17) Reported Meds & Prescriptions Reported Meds & Active Scripts Active Novolog Inj (Insulin Aspart) 1,000 Unit/10 Ml Vial 1-9 Units SQ ACHS sugars less than 70,(0)units; sugars 150-199,(1) unit; sugars 200-249,(3) units; sugars 250-299,(5) units; sugars 300-349,(7) units; sugars greater than 349,(9) units inform PCP if < 70 or >400. Review of Systems General / Constitutional: No: Fever Eyes: No: Visual changes HENT: No: Headaches Cardiovascular: No: Chest Pain or Discomfort Respiratory: No: Shortness of Breath Gastrointestinal: Positive: Nausea, Abdominal Pain, No: Vomiting, Diarrhea Genitourinary: No: Urgency, Frequency, Dysuria, Hematuria Musculoskeletal: No: Arthralgias, Pain Skin: No Rash Neurologic: No: Weakness Psychiatric: No: Depression Endocrine: No: Polydipsia Hematologic/Lymphatic: No: Easy Bruising Physical Exam Narrative GENERAL: Well-developed, well-nourished in no apparent distress. Nontoxic appearing. HEAD: Normocephalic, atraumatic. EYES: Pupils equal round and reactive. Extraocular motions intact. No scleral icterus. No injection or drainage. ENT: Nose clear. Throat without erythema, tonsillar hypertrophy or exudate. Uvula midline. Airway patent. NECK: Trachea midline. Supple, nontender, moves head freely. No central bony tenderness or spasm. CARDIOVASCULAR: Regular rate and rhythm without murmurs, gallops, or rubs. RESPIRATORY: Clear to auscultation. Breath sounds equal bilaterally. No wheezes , rales, or rhonchi. GASTROINTESTINAL: Abdomen soft, mild diffuse tenderness worse in the epigastric region, nondistended. No hepato-splenomegaly, or palpable masses. No guarding. EXTREMITIES: No clubbing, cyanosis, or edema. No joint tenderness. BACK: Nontender without deformity. No flank tenderness. NEUROLOGICAL: Awake, alert and oriented x 3 .Cranial nerves grossly intact. Motor and sensory grossly within normal limits. Normal speech. Data Data Last Documented VS Vital Signs Date Time Temp Pulse Resp B/P (MAP) Pulse Ox O2 Delivery O2 Flow Rate FiO2 08/24/17 23:38 94 20 142/86 (104) 97 Room Air 08/24/17 21:01 97.6 Orders Orders Electrocardiogram (08/24/17 21:42) Complete Blood Count With Diff (08/24/17 21:42) Comprehensive Metabolic Panel (08/24/17 21:42) Lipase (08/24/17 21:42) Ua Includes Microscopic (08/24/17 21:42) Iv Access Insert/Monitor (08/24/17 21:42) Sodium Chlor 0.9% 1000 Ml Inj (Ns 1000 M (08/24/17 21:45) Diphenhydramine Inj (Benadryl Inj) (08/24/17 21:45) Metoclopramide Inj (Reglan Inj) (08/24/17 21:45) Ketorolac Inj (Toradol Inj) (08/24/17 22:45) Al-Mag Hy-Si 40-40-4 Mg/Ml Liq (Mag-Al P (08/24/17 23:30) Lidocaine 2% Viscous (Xylocaine 2% Visco (08/24/17 23:30) Sodium Chlor 0.9% 1000 Ml Inj (Ns 1000 M (08/24/17 23:30) Insulin Human Regular Inj (Novolin R Inj (08/24/17 23:30) Labs Laboratory Tests Test 08/24/17 22:05 White Blood Count 9.4 TH/MM3 Red Blood Count 5.50 MIL/MM3 Hemoglobin 16.5 GM/DL Hematocrit 45.8 % Mean Corpuscular Volume 83.2 FL Mean Corpuscular Hemoglobin 29.9 PG Mean Corpuscular Hemoglobin Concent 36.0 % Red Cell Distribution Width 13.4 % Platelet Count 226 TH/MM3 Mean Platelet Volume 8.1 FL Neutrophils (%) (Auto) 61.1 % Lymphocytes (%) (Auto) 30.6 % Monocytes (%) (Auto) 6.5 % Eosinophils (%) (Auto) 1.0 % Basophils (%) (Auto) 0.8 % Neutrophils # (Auto) 5.7 TH/MM3 Lymphocytes # (Auto) 2.9 TH/MM3 Monocytes # (Auto) 0.6 TH/MM3 Eosinophils # (Auto) 0.1 TH/MM3 Basophils # (Auto) 0.1 TH/MM3 CBC Comment AUTO DIFF Differential Comment AUTO DIFF CONFIRMED Toxic Granulation 1+ Platelet Estimate NORMAL Platelet Morphology Comment NORMAL Urine Color LIGHT-YELLOW Urine Turbidity CLEAR Urine pH 5.0 Urine Specific [place] 1.037 Urine Protein NEG mg/dL Urine Glucose (UA) 1000 mg/dL Urine Ketones 10 mg/dL Urine Occult Blood NEG Urine Nitrite NEG Urine Bilirubin NEG Urine Urobilinogen LESS THAN 2.0 MG/DL Urine Leukocyte Esterase NEG Urine Mucus FEW /lpf Blood Urea Nitrogen 16 MG/DL Creatinine 1.19 MG/DL Random Glucose 386 MG/DL Total Protein 7.7 GM/DL Albumin 3.7 GM/DL Calcium Level 8.5 MG/DL Alkaline Phosphatase 86 U/L Aspartate Amino Transf (AST/SGOT) 28 U/L Alanine Aminotransferase (ALT/SGPT) 40 U/L Total Bilirubin 0.4 MG/DL Sodium Level 138 MEQ/L Potassium Level 4.4 MEQ/L Chloride Level 101 MEQ/L Carbon Dioxide Level 28.1 MEQ/L Anion Gap 9 MEQ/L Estimat Glomerular Filtration Rate 67 ML/MIN Lipase 153 U/L MDM Medical Decision Making Medical Screen Exam Complete: Yes Emergency Medical Condition: Yes Medical Record Reviewed: Yes Interpretation(s) EKG shows NSR, no ST elevation or depression, and no arrhythmias. Incomplete right bundle branch block. Poor R-wave progression. No significant T-wave inversions. Differential Diagnosis Differential diagnosis: Pancreatitis, gastritis, reflux, kidney stones, chronic abdominal pain, irritable bowel, gastroparesis, electrolyte abnormality Narrative Course IV access is obtained. Patient is given a liter bolus of normal saline, Benadryl 50 mg IV, and Reglan 10 mg IV. Routine laboratory tests of analysis including CBC, chemistry, UA, lipase and EKG Patient blood sugars 386. He is given a second liter of fluid. He is also given 5 units of regular insulin IV. Patient had continued complaints of pain. Is given 15 mg of Toradol IV. Patient is also given 30 mL's of Maalox and 15 mL's of 2% viscous lidocaine p.o. The patient has persistently asked for additional pain medications. His history , exam and laboratory findings do not reveal an emergent process and do not require opiates. I have explained this to the patient but he is insistent on stronger pain medications. The patient has refused to have a repeat Accu-Chek done after getting his insulin. The patient is alert and oriented. I see no indication for a [place] act at this time. The patient will be signed out AGAINST MEDICAL ADVICE. AMA: The risks of leaving against medical advice without further evaluation treatment were discussed with the patient. These risks include cardiac dysfunction, cardiac dysrhythmia, possible heart attack, possible stroke or . The patient indicated understanding of these risks and appeared to have the capacity to make this decision. Diagnosis Primary Impression: Left against medical advice Additional Impressions: Insulin dependent diabetes mellitus Hyperglycemia Chronic abdominal pain Patient Instructions: General Instructions Additional Instructions: Rest. Increase fluids. Return to the ER for further evaluation. Follow-up with your doctor tomorrow. Med/Other Pt SpecificInfo: No Meds Exist/No RX given Disposition: 07 AGAINST MEDICAL ADVICE Condition: Stable Trey Schwarz August 24, 2017 21:50
[2017-08-24 22:13] LABS: AUTOMATED NEUTROPHIL # 5.7 TH/MM3 (1.8-7.7); BASOPHIL # 0.1 TH/MM3 (0-0.2); BASOPHIL % 0.8 % (0.0-2.0); EOSINOPHIL # 0.1 TH/MM3 (0-0.4); HEMATOCRIT 45.8 % (39.0-51.0); HEMOGLOBIN 16.5 GM/DL (13.0-17.0); LYMPH % 30.6 % (9.0-44.0); LYMPHOCYTE # 2.9 TH/MM3 (1.0-4.8); MEAN CELL VOLUME 83.2 FL (80.0-100.0); MEAN CORPUSCULAR HEMOGLOBIN 29.9 PG (27.0-34.0); MEAN PLATELET VOLUME 8.1 FL (7.0-11.0); MONO % 6.5 % (0.0-8.0); MONOCYTE # 0.6 TH/MM3 (0-0.9); NEUT % 61.1 % (16.0-70.0); PLATELET COUNT 226 TH/MM3 (150-450); RED CELL DISTRIBUTION WIDTH 13.4 % (11.6-17.2); WHITE BLOOD COUNT 9.4 TH/MM3 (4.0-11.0)
[2017-08-24 22:27] LABS: BILIRUBIN, URINE NEG (NEG); GLUCOSE,URINE 1000 mg/dL (NEG); KETONE, URINE 10 mg/dL (NEG); URINE COLOR LIGHT-YELLOW (YELLW/STRAW)
[2017-08-24 22:28] LABS: BLOOD, URINE NEG (NEG); MUCUS URINE FEW /lpf (OCC); NITRITE,URINE NEG (NEG); URINE LEUKOCYTE ESTERASE NEG (NEG)
[2017-08-24 22:32] LABS: ALKALINE PHOSPHATASE 86 U/L (45-117); TOTAL BILIRUBIN ADULT 0.4 MG/DL (0.2-1.0); TOTAL PROTEIN 7.7 GM/DL (6.4-8.2)
[2017-08-24 22:41] LABS: TOXIC GRANULATION 1+ (NORMAL)
[2017-08-24] MEDS ORDERED: KETOROLAC TROMETHAMINE 30 MG/ML (IVP) VIAL IV PUSH ONE (22:45)
[2017-08-24 22:58] LABS: ALBUMIN 3.7 GM/DL (3.4-5.0); ALT (GPT) 40 U/L (12-78); BICARBONATE 28.1 MEQ/L (21.0-32.0); CALCIUM 8.5 MG/DL (8.5-10.1); CHLORIDE 101 MEQ/L (98-107); CREATININE 1.19 MG/DL (0.60-1.30); GLOMERULAR FILTRATION RATE 67 ML/MIN (>89); GLUCOSE,RANDOM 386 MG/DL (74-106); SODIUM (NA) 138 MEQ/L (136-145)
[2017-08-24 22:59] LABS: BLOOD UREA NITROGEN 16 MG/DL (7-18)
[2017-08-24 23:16] LABS: AST (GOT) 28 U/L (15-37)
[2017-08-24] MEDS ORDERED: ALUMINUM/MAGNESIUM/SIMETH 30 ML CUP PO ONE (23:30)
[2017-08-24] MEDS ORDERED: LIDOCAINE VISCOUS 2% SOLN 15 ML UDC PO ONE (23:30)
[2017-08-24] MEDS ORDERED: INSULIN HUMAN REGULAR 1,000 UNITS/10 ML VIAL IV PUSH ONE (23:30)
[2017-08-24 23:38] VITALS: BP 142/86; PULSE 94; RESP 20; O2SAT 97
--- NOTE | 2017-08-25 10:30 | EKG ---
Date Performed: 08/24/2017 Time Performed: 21:50:25 PTAGE: 42 years EKG: Sinus rhythm POSSIBLE LEFT ATRIAL ENLARGEMENT INCOMPLETE RIGHT BUNDLE BRANCH BLOCK POSSIBLE RIGHT VENTRICULAR HYP ERTROPHY ABNORMAL ECG PREVIOUS TRACING : 02/20/2017 21.52 Right axis deviation new from the old tracing. DOCTOR: Sarath Zuleta Interpretating Date/Time 08/25/2017 10:29:56
== END 2017-08-25 00:44 | disposition left against medical advice (07) ==
LOC: NEPD 20:50
DX: E11.65 Type 2 diabetes mellitus with hyperglycemia (principal); G89.29 Other chronic pain; Z79.4 Long term (current) use of insulin
CPT/HCPCS: 80053; 81001; 83690; 85025; 93005; 96361; 96374; 96375; 99284; J1200; J1815; J1885; J2765; J7030

== ENCOUNTER 2017-09-11 11:22 | Emergency (ER) | payer OTHER ==
[~2017-09-11] VITALS: Ht 180.3 cm; Wt 120.0 kg
[~2017-09-11 11:22] MED LIST changes: -IBUP1TAB7 PO
[2017-09-11 11:32] VITALS: BP 160/102; PULSE 94; RESP 16; TEMP 98.5; O2SAT 96
[2017-09-11] MEDS ORDERED: LEVEMIR SQ (11:48)
[2017-09-11] MEDS ORDERED: SODIUM CHLOR 0.9% 1000 ML INJ 1,000 ML IV SCH (12:20)
--- NOTE | 2017-09-11 12:24 | PD ---
HPI Chief Complaint: Medical Clearance Time Seen by Provider: 11:48 Travel History International Travel<30 days: No Contact w/Intl Traveler<30days: No Traveled to known affect area: No History of Present Illness HPI 42-year-old male presents to the emergency department with complaint of umbilical hernia that his "popped out "3 days ago and has been very painful. The abdominal hernias been there for a little over a year. She has history of hernias, with repair, by Dr. Bee. He reports vomiting last night, but none today. Reports nausea. Denies fevers. Denies dysuria, change in stool. Rates pain 6/10. Worse with movement, coughing, urinating, defecating. Better with standing up. Has taken an old prescription of a [place] and Dilaudid with some relief of pain. Says the medication helped him sleep last night. Does not know the name of his primary care provider. His surgeon is Dr. Bee. No known allergies. Has no other medical complaints. No other modifying factors or associated signs and symptoms. PFSH Past Medical History Hx Anticoagulant Therapy: No Arthritis: No Asthma: No Autoimmune Disease: No Anxiety: No Depression: No Heart Rhythm Problems: No Cancer: No Cardiovascular Problems: No High Cholesterol: No Chemotherapy: No Chest Pain: No Congestive Heart Failure: No COPD: No Cerebrovascular Accident: No Diabetes: Yes Diminished Hearing: No Endocrine: No Gastrointestinal Disorders: Yes (kidney stones, pancreatitis ) GERD: No Genitourinary: No Headaches: No Hepatitis: No Hiatal Hernia: No Heparin Induced Thrombocytopen: No Hypertension: Yes ( ) Immune Disorder: Yes Inguinal Hernia: Yes Implanted Vascular Access Dvce: No Kidney Stones: Yes Musculoskeletal: Yes (CHRONIC BACK PAIN, hip problems) Neurologic: Yes (neuropathy) Psychiatric: Yes (anxiety) Reproductive: No Respiratory: Yes (sleep apnea ) Immunizations Current: Yes Migraines: No Pancreatitis: Yes Radiation Therapy: No Renal Failure: No Seizures: No Shingles: Yes Sickle Cell Disease: No Sleep Apnea: Yes (NO CPAP USE) Thyroid Disease: No Ulcer: No Past Surgical History Abdominal Surgery: Yes (HERNIA REPAIR) AICD: No Arteriovenous Shunt: No Body Medical Devices: NONE Cardiac Surgery: No Ear Surgery: No Endocrine Surgery: No Eye Surgery: No Genitourinary Surgery: No Gynecologic Surgery: No Insulin Pump: No Joint Replacement: No Neurologic Surgery: Yes (spine surgery) Oral Surgery: No Pacemaker: No Thoracic Surgery: No Other Surgery: Yes (1 testical removed ) Social History Alcohol Use: No Tobacco Use: No Substance Use: No Allergies-Medications (Allergen,Severity, Reaction): Coded Allergies: diatrizoate meglumine (Verified Allergy, Mild, Rash, 09/11/17) gadobenic acid (Verified Allergy, Mild, Rash, 09/11/17) gadodiamide (Verified Allergy, Mild, Rash, 09/11/17) gadoteridol (Verified Allergy, Mild, Rash, 09/11/17) iodixanol (Verified Allergy, Mild, Rash, 09/11/17) iohexol (Verified Allergy, Mild, Rash, 09/11/17) Reported Meds & Prescriptions Reported Meds & Active Scripts Active Zofran Odt (Ondansetron Odt) 4 Mg Tab 4 Mg SL Q8HR PRN Tramadol (Tramadol HCl) 50 Mg Tab 50 Mg PO Q4H PRN Novolog Inj (Insulin Aspart) 1,000 Unit/10 Ml Vial 1-9 Units SQ ACHS sugars less than 70,(0)units; sugars 150-199,(1) unit; sugars 200-249,(3) units; sugars 250-299,(5) units; sugars 300-349,(7) units; sugars greater than 349,(9) units inform PCP if < 70 or >400. Reported Levemir Inj (Insulin Detemir) 1,000 unit/ 10 ML Vial 10 Units SQ HS Do not mix with any other Insulin. Review of Systems Except as stated in HPI: all other systems reviewed are Neg Physical Exam Narrative GENERAL: Well-nourished, well-developed male patient, in no acute distress SKIN: Warm and dry. HEAD: Atraumatic. Normocephalic. EYES: Pupils equal and round. No scleral icterus. No injection or drainage. ENT: Mucosa pink and moist. Airway patent. NECK: Trachea midline. CARDIOVASCULAR: Regular rate RESPIRATORY: No accessory muscle use. GASTROINTESTINAL: Abdomen soft, tender to umbilical region, nondistended. Palpable and visualized umbilical hernia noted more prominent with standing. Hepatic and splenic margins not palpable. Bowel sounds are active 4 quadrants. MUSCULOSKELETAL: No obvious deformities. No clubbing. No cyanosis. No edema. NEUROLOGICAL: Awake and alert. Oriented 3. No obvious cranial nerve deficits. Motor grossly within normal limits. Normal speech. PSYCHIATRIC: Appropriate mood and affect; insight and judgment normal. Data Data Last Documented VS Vital Signs Date Time Temp Pulse Resp B/P (MAP) Pulse Ox O2 Delivery O2 Flow Rate FiO2 09/11/17 11:32 98.5 94 16 160/102 (121) 96 Orders Orders Complete Blood Count With Diff (09/11/17 12:20) Comprehensive Metabolic Panel (09/11/17 12:20) Lipase (09/11/17 12:20) Urinalysis - C+S If Indicated (09/11/17 12:20) Ct Abd/Pel W/O Iv Contrast (09/11/17 12:20) Iv Access Insert/Monitor (09/11/17 12:20) NPO (09/11/17 12:20) Morphine Inj (Morphine Inj) (09/11/17 12:30) Sodium Chlor 0.9% 1000 Ml Inj (Ns 1000 M (09/11/17 12:20) Sodium Chloride 0.9% Flush (Ns Flush) (09/11/17 12:30) Prochlorperazine Inj (Compazine Inj) (09/11/17 12:30) Diphenhydramine Inj (Benadryl Inj) (09/11/17 12:30) Ed Discharge Order (09/11/17 15:33) Labs Laboratory Tests Test 09/11/17 12:39 White Blood Count 9.2 TH/MM3 Red Blood Count 5.61 MIL/MM3 Hemoglobin 16.6 GM/DL Hematocrit 46.1 % Mean Corpuscular Volume 82.1 FL Mean Corpuscular Hemoglobin 29.5 PG Mean Corpuscular Hemoglobin Concent 36.0 % Red Cell Distribution Width 13.5 % Platelet Count 233 TH/MM3 Mean Platelet Volume 8.1 FL Neutrophils (%) (Auto) 66.6 % Lymphocytes (%) (Auto) 24.3 % Monocytes (%) (Auto) 7.3 % Eosinophils (%) (Auto) 1.2 % Basophils (%) (Auto) 0.6 % Neutrophils # (Auto) 6.1 TH/MM3 Lymphocytes # (Auto) 2.2 TH/MM3 Monocytes # (Auto) 0.7 TH/MM3 Eosinophils # (Auto) 0.1 TH/MM3 Basophils # (Auto) 0.1 TH/MM3 CBC Comment AUTO DIFF Differential Comment AUTO DIFF CONFIRMED Urine Color YELLOW Urine Turbidity CLEAR Urine pH 5.0 Urine Specific [place] 1.030 Urine Protein NEG mg/dL Urine Glucose (UA) 500 mg/dL Urine Ketones 15 mg/dL Urine Occult Blood NEG Urine Nitrite NEG Urine Bilirubin NEGATIVE Urine Urobilinogen LESS THAN 2.0 MG/DL Urine Leukocyte Esterase NEGATIVE Urine RBC 1 /hpf Urine WBC LESS THAN 1 /hpf Microscopic Urinalysis Comment CULT NOT INDICATED Blood Urea Nitrogen 17 MG/DL Creatinine 1.12 MG/DL Random Glucose 353 MG/DL Total Protein 8.3 GM/DL Albumin 3.9 GM/DL Calcium Level 8.5 MG/DL Alkaline Phosphatase 113 U/L Aspartate Amino Transf (AST/SGOT) 36 U/L Alanine Aminotransferase (ALT/SGPT) 38 U/L Total Bilirubin 0.6 MG/DL Sodium Level 134 MEQ/L Potassium Level 4.3 MEQ/L Chloride Level 101 MEQ/L Carbon Dioxide Level 21.8 MEQ/L Anion Gap 11 MEQ/L Estimat Glomerular Filtration Rate 72 ML/MIN Lipase 151 U/L [facility] Medical Decision Making Medical Screen Exam Complete: Yes Emergency Medical Condition: Yes Medical Record Reviewed: Yes Differential Diagnosis Umbilical hernia, obstruction, incarcerated hernia Narrative Course 42-year-old male with umbilical hernia that is causing him pain for the past 3 days. 1220: Dr Lou evaluated the patient and entered orders. 1421: CBC unremarkable. CMP unremarkable. Serum glucose 353. Urinalysis unremarkable. CT abdomen/pelvis conclude: Abdomen/Pelvis CT 09/11/17 1220 Signed Impressions: Service Date/Time: Monday, September 11, 2017 13:48 - CONCLUSION: 1. Stable configuration to the fat-containing umbilical and left inguinal hernia. 2. Nonobstructing small calcified renal stones lower pole left kidney. 3. Stable sigmoid diverticula without radiographic evidence of diverticulitis. Saturnino Gilliam MD Patient provided a copy of the CT report. Patient reports he has a follow-up appointment with Dr. Bee, general surgeon this ; he has already called and made an appointment. Tramadol, Zofran prescribed for home. Instructed patient to follow up with primary care provider. Patient verbalizes understanding and agreement with treatment plan. Patient is medically cleared and stable for discharge. Discussed reasons to return to the emergency department. Patient agrees with treatment plan. The patients vital signs are stable and the patient is stable for outpatient follow-up and treatment. Patient discharged home, stable and in no acute distress. Diagnosis Primary Impression: Umbilical hernia Qualified Codes: K42.9 - Umbilical hernia without obstruction or gangrene Referrals: General Surgeon Primary Care Physician Patient Instructions: General Instructions, Umbilical Hernia (ED) Additional Instructions: Tramadol as prescribed; no operating machinery or drink alcohol while taking this medication Ibuprofen as directed and as needed for pain No heavy lifting Follow-up with general surgeon Follow-up with primary care provider Return to the emergency department immediately with worsening of symptoms Med/Other Pt SpecificInfo: Prescription(s) given Scripts Ondansetron Odt (Zofran Odt) 4 Mg Tab 4 MG SL Q8HR Y for Nausea/Vomiting, #10 TAB 0 Refills Prov: Symone Oreilly 09/11/17 Tramadol (Tramadol) 50 Mg Tab 50 MG PO Q4H Y for PAIN, #12 TAB 0 Refills Prov: Symone Oreilly 09/11/17 Disposition: 01 DISCHARGE HOME Condition: Stable Symone Oreilly September 11, 2017 12:24
[2017-09-11] MEDS ORDERED: PROCHLORPERAZINE INJ 10 MG/2 ML VIAL IV PUSH ONE (12:30)
[2017-09-11] MEDS ORDERED: MORPHINE SULFATE 4 MG/ML INJ IV PUSH ONE (12:30)
[2017-09-11] MEDS ORDERED: diphenhydrAMINE HCL 50 MG/ML VIAL IV PUSH ONE (12:30)
[2017-09-11] MEDS ORDERED: SODIUM CHLORIDE 0.9% FLUSH 10 ML FLUSH IV FLUSH PRN (12:30)
--- NOTE | 2017-09-11 13:02 | PD ---
Physical Exam Date Seen by Provider: September 11, 2017 Narrative This patient presents with abdominal pain. He also has an umbilical hernia. He has had several previous hernia repairs. Data Data Last Documented VS Vital Signs Date Time Temp Pulse Resp B/P (MAP) Pulse Ox O2 Delivery O2 Flow Rate FiO2 09/11/17 11:32 98.5 94 16 160/102 (121) 96 Orders Orders Complete Blood Count With Diff (09/11/17 12:20) Comprehensive Metabolic Panel (09/11/17 12:20) Lipase (09/11/17 12:20) Urinalysis - C+S If Indicated (09/11/17 12:20) Ct Abd/Pel W/O Iv Contrast (09/11/17 12:20) Iv Access Insert/Monitor (09/11/17 12:20) NPO (09/11/17 12:20) Morphine Inj (Morphine Inj) (09/11/17 12:30) Sodium Chlor 0.9% 1000 Ml Inj (Ns 1000 M (09/11/17 12:20) Sodium Chloride 0.9% Flush (Ns Flush) (09/11/17 12:30) Prochlorperazine Inj (Compazine Inj) (09/11/17 12:30) Diphenhydramine Inj (Benadryl Inj) (09/11/17 12:30) MDM Supervised Visit with JEFFREY: Yes Narrative Course I, Dr. Lou, have reviewed the advance practice practitioner's documentation and am in agreement, met with the patient face to face, made the diagnosis, and the medical decision making was done by me. *My assessment and Findings: He has diffuse abdominal tenderness which seems to be worse on the left than the right. A full abdominal workup including a CT to look for obstruction has been ordered. Please see Symone Oreilly NP's note for results of laboratory and radiographic evaluation, ED course, final diagnosis and disposition Susanne Lou MD September 11, 2017 13:02
[2017-09-11 13:22] LABS: AUTOMATED NEUTROPHIL # 6.1 TH/MM3 (1.8-7.7); BASOPHIL # 0.1 TH/MM3 (0-0.2); BASOPHIL % 0.6 % (0.0-2.0); EOSINOPHIL # 0.1 TH/MM3 (0-0.4); EOSINOPHIL % 1.2 % (0.0-4.0); HEMATOCRIT 46.1 % (39.0-51.0); HEMOGLOBIN 16.6 GM/DL (13.0-17.0); LYMPH % 24.3 % (9.0-44.0); LYMPHOCYTE # 2.2 TH/MM3 (1.0-4.8); MEAN CELL VOLUME 82.1 FL (80.0-100.0); MEAN CORPUSCULAR HEMOGLOBIN 29.5 PG (27.0-34.0); MEAN PLATELET VOLUME 8.1 FL (7.0-11.0); MONO % 7.3 % (0.0-8.0); MONOCYTE # 0.7 TH/MM3 (0-0.9); NEUT % 66.6 % (16.0-70.0); PLATELET COUNT 233 TH/MM3 (150-450); RED BLOOD COUNT 5.61 MIL/MM3 (4.50-5.90); RED CELL DISTRIBUTION WIDTH 13.5 % (11.6-17.2); WHITE BLOOD COUNT 9.2 TH/MM3 (4.0-11.0)
[2017-09-11 13:45] LABS: ALKALINE PHOSPHATASE 113 U/L (45-117); TOTAL BILIRUBIN ADULT 0.6 MG/DL (0.2-1.0)
[2017-09-11 13:48] LABS: URINE COLOR YELLOW (YELLW/STRAW)
[2017-09-11 13:49] LABS: BILIRUBIN, URINE NEGATIVE (NEG); GLUCOSE,URINE 500 mg/dL (NEG); KETONE, URINE 15 mg/dL (NEG)
[2017-09-11 13:50] LABS: BLOOD, URINE NEG (NEG); NITRITE,URINE NEG (NEG); URINE LEUKOCYTE ESTERASE NEGATIVE (NEG)
--- NOTE | 2017-09-11 14:05 | RADRPT ---
EXAM DATE/TIME: 09/11/2017 13:48 [place] COMPARISON: CT ABDOMEN & PELVIS W/O CONTRAST, July 26, 2017, 21:26. INDICATIONS : Bulging near left umbilical region. ORAL CONTRAST: No oral contrast ingested. RADIATION DOSE: 10.89 CTDIvol (mGy) MEDICAL HISTORY : Hypertension. Pancreatitis. diabetes. SURGICAL HISTORY : Hernia repair. Testicle removed. ENCOUNTER: Initial ACUITY: 1 day PAIN SCALE: 7/10 LOCATION: Left Umbilical. TECHNIQUE: Volumetric scanning of the abdomen and pelvis was performed. Using automated exposure control and ad justment of the mA and/or kV according to patient size, radiation dose was kept as low as reasonably achievable to obtain optimal diagnostic quality images. DICOM format image data is available electro nically for review and comparison. FINDINGS: LOWER LUNGS: The visualized lower lungs are clear. LIVER: Homogeneous density without lesion for noncontrast technique. Mild diffuse fatty change. There is n o dilation of the biliary tree. No calcified gallstones. SPLEEN: Normal size without lesion. PANCREAS: Within normal limits. KIDNEYS: No evidence of hydronephrosis on either side. There are 2 calcified nonobstructing stones lower pole collecting system on the left side measuring 3 and 4 mm. No calcifications along either ureter. ADRENAL GLANDS: Within normal limits. VASCULAR: There is no aortic aneurysm. BOWEL/MESENTERY: No dilated loops of small or large bowel. A few small sigmoid diverticula without radiographic evide nce of diverticulitis. ABDOMINAL WALL: Fat-containing umbilical hernia with separation between the rectus muscles measuring 2.8 cm. The con figuration of the hiatus hernia is unchanged from prior CT in July 2017. RETROPERITONEUM: There is no lymphadenopathy. BLADDER: No wall thickening or mass. REPRODUCTIVE: Within normal limits. INGUINAL: Moderate size left inguinal hernia containing fat, stable in configuration from prior CT. MUSCULOSKELETAL: Within normal limits for patient age. CONCLUSION: 1. Stable configuration to the fat-containing umbilical and left inguinal hernia. 2. Nonobstructing small calcified renal stones lower pole left kidney. 3. Stable sigmoid diverticula without radiographic evidence of diverticulitis. Saturnino Gilliam MD on September 11, 2017 at 13:58 Board Certified Radiologist. This report was verified electronically.
[2017-09-11 14:10] LABS: ALBUMIN 3.9 GM/DL (3.4-5.0); BICARBONATE 21.8 MEQ/L (21.0-32.0); CALCIUM 8.5 MG/DL (8.5-10.1); CHLORIDE 101 MEQ/L (98-107); CREATININE 1.12 MG/DL (0.60-1.30); GLOMERULAR FILTRATION RATE 72 ML/MIN (>89); GLUCOSE,RANDOM 353 MG/DL (74-106); SODIUM (NA) 134 MEQ/L (136-145)
[2017-09-11 14:16] LABS: BLOOD UREA NITROGEN 17 MG/DL (7-18)
[2017-09-11 14:44] LABS: AST (GOT) 36 U/L (15-37); TOTAL PROTEIN 8.3 GM/DL (6.4-8.2)
[2017-09-11 14:48] LABS: ALT (GPT) 38 U/L (12-78)
[2017-09-11] MEDS ORDERED: ZOFR4TAB3 SL (15:33)
[2017-09-11] MEDS ORDERED: TRAM50TA PO (15:33)
== END 2017-09-11 15:51 | disposition home or self-care (01) ==
LOC: NEPD 11:22
DX: K42.9 Umbilical hernia without obstruction or gangrene (principal); R10.84 Generalized abdominal pain; R11.2 Nausea with vomiting, unspecified; E11.9 Type 2 diabetes mellitus without complications; I10 Essential (primary) hypertension; G47.30 Sleep apnea, unspecified; Z79.4 Long term (current) use of insulin; Z87.19 Personal history of other diseases of the digestive system; Z87.39 Personal history of other diseases of the musculoskeletal system and connective tissue; Z86.69 Personal history of other diseases of the nervous system and sense organs
CPT/HCPCS: 74176; 80053; 81001; 83690; 85025; 96361; 96374; 96375; 99284; J0780; J1200; J2270; J7030

== ENCOUNTER 2017-09-14 14:44 | Emergency (ER) | payer OTHER ==
[~2017-09-14] VITALS: Ht 180.3 cm; Wt 122.0 kg
[~2017-09-14 14:44] MED LIST changes: +LEVEMIR SQ; +TRAM50TA PO; +ZOFR4TAB3 SL
[2017-09-14 14:48] VITALS: BP 182/90; PULSE 93; RESP 17; TEMP 97.6; O2SAT 97
[2017-09-14 15:41] LABS: BILIRUBIN, URINE NEG (NEG); BLOOD, URINE LARGE (NEG); GLUCOSE,URINE 300 mg/dL (NEG); KETONE, URINE TRACE mg/dL (NEG); MUCUS URINE FEW /lpf (OCC); NITRITE,URINE NEG (NEG); PH, URINE 5.5 (5.0-8.5); SQUAMOUS EPITHELIAL CELL URINE 1 /hpf (0-5); URINE LEUKOCYTE ESTERASE TRACE (NEG)
[2017-09-14 15:42] LABS: URINE COLOR LIGHT-RED (YELLW/STRAW)
[2017-09-14] MEDS ORDERED: ORPHENADRINE INJ 60 MG/2 ML AMP IM ONE (16:45)
[2017-09-14] MEDS ORDERED: KETOROLAC TROMETHAMINE 60 MG/2 ML (IM) VIAL IM ONE (16:45)
--- NOTE | 2017-09-14 16:55 | PD ---
HPI Chief Complaint: Complaint Time Seen by Provider: 16:36 Travel History International Travel<30 days: No Contact w/Intl Traveler<30days: No Traveled to known affect area: No History of Present Illness HPI 32-year-old male complains of left flank pain with radiation to left groin area. Patient states that the pain started today. Patient has history of recurrent left flank pain has been to emergency room multiple times in the past. CT scan abdomen pelvis shows nonobstructive renal stone. Patient states that he has been passing urine with blood in the urine. Patient denies any fever chills. Patient denies any headache. Patient denies any chest pain or shortness of breath. Patient states the pain is burning pain started in the left flank area radiation to the left lower quadrant the left groin area. Patient denies any recent injury. Patient states that the pain is same pain he has in the past. On a scale from 1-10 the pain is a 9. PFSH Past Medical History Hx Anticoagulant Therapy: No Arthritis: No Asthma: No Autoimmune Disease: No Anxiety: No Depression: No Heart Rhythm Problems: No Cancer: No Cardiovascular Problems: No High Cholesterol: No Chemotherapy: No Chest Pain: No Congestive Heart Failure: No COPD: No Cerebrovascular Accident: No Diabetes: Yes Patient Takes Glucophage: No Diminished Hearing: No Endocrine: No Gastrointestinal Disorders: Yes (kidney stones, pancreatitis ) GERD: No Genitourinary: No Headaches: No Hepatitis: No Hiatal Hernia: No Heparin Induced Thrombocytopen: No Hypertension: Yes ( ) Immune Disorder: Yes Inguinal Hernia: Yes Implanted Vascular Access Dvce: No Kidney Stones: Yes Musculoskeletal: Yes (CHRONIC BACK PAIN, hip problems) Neurologic: Yes (neuropathy) Psychiatric: Yes (anxiety) Reproductive: No Respiratory: Yes (sleep apnea ) Immunizations Current: Yes Migraines: No Pancreatitis: Yes Radiation Therapy: No Renal Failure: No Seizures: No Shingles: Yes Sickle Cell Disease: No Sleep Apnea: Yes Thyroid Disease: No Ulcer: No Past Surgical History Abdominal Surgery: Yes (HERNIA REPAIR x 4) AICD: No Arteriovenous Shunt: No Body Medical Devices: NONE Cardiac Surgery: No Ear Surgery: No Endocrine Surgery: No Eye Surgery: No Genitourinary Surgery: No Gynecologic Surgery: No Insulin Pump: No Joint Replacement: No Neurologic Surgery: Yes (spine surgery) Oral Surgery: No Pacemaker: No Thoracic Surgery: No Other Surgery: Yes (1 testical removed ) Social History Alcohol Use: No Tobacco Use: No Substance Use: No Allergies-Medications (Allergen,Severity, Reaction): Coded Allergies: diatrizoate meglumine (Verified Allergy, Mild, Rash, 09/14/17) gadobenic acid (Verified Allergy, Mild, Rash, 09/14/17) gadodiamide (Verified Allergy, Mild, Rash, 09/14/17) gadoteridol (Verified Allergy, Mild, Rash, 09/14/17) iodixanol (Verified Allergy, Mild, Rash, 09/14/17) iohexol (Verified Allergy, Mild, Rash, 09/14/17) Reported Meds & Prescriptions Reported Meds & Active Scripts Active Novolog Inj (Insulin Aspart) 1,000 Unit/10 Ml Vial 1-9 Units SQ ACHS sugars less than 70,(0)units; sugars 150-199,(1) unit; sugars 200-249,(3) units; sugars 250-299,(5) units; sugars 300-349,(7) units; sugars greater than 349,(9) units inform PCP if < 70 or >400. Reported Levemir Inj (Insulin Detemir) 1,000 unit/ 10 ML Vial 10 Units SQ HS Do not mix with any other Insulin. Review of Systems General / Constitutional: No: Fever Eyes: No: Visual changes HENT: No: Headaches Cardiovascular: No: Chest Pain or Discomfort Respiratory: No: Shortness of Breath Gastrointestinal: Positive: Abdominal Pain Genitourinary: No: Dysuria Musculoskeletal: No: Pain Skin: No Rash Neurologic: No: Weakness Psychiatric: No: Depression Endocrine: No: Polydipsia Hematologic/Lymphatic: No: Easy Bruising Physical Exam Narrative GENERAL: Well-nourished, well-developed patient. SKIN: Focused skin assessment warm/dry. HEAD: Normocephalic. EYES: No scleral icterus. No injection or drainage. NECK: Supple, trachea midline. No JVD or lymphadenopathy. CARDIOVASCULAR: Regular rate and rhythm without murmurs, gallops, or rubs. RESPIRATORY: Breath sounds equal bilaterally. No accessory muscle use. GASTROINTESTINAL: Abdomen soft, nondistended. Mild tenderness on palpation left mid to lower abdomen area. No rebound tenderness. No mass. MUSCULOSKELETAL: No cyanosis, or edema. BACK: Patient has moderate tenderness of motion left flank area without obvious deformity. No CVA tenderness. exam: Non-tenderness on palpation of testicle. No scrotum swelling. No mass noted. Neurologic exam normal. Data Data Last Documented VS Vital Signs Date Time Temp Pulse Resp B/P (MAP) Pulse Ox O2 Delivery O2 Flow Rate FiO2 09/14/17 14:48 97.6 93 17 182/90 (120) 97 Orders Orders Urinalysis - C+S If Indicated (09/14/17 14:50) Ketorolac Inj (Toradol Inj) (09/14/17 16:45) Orphenadrine Inj (Norflex Inj) (09/14/17 16:45) Ed Discharge Order (09/14/17 16:48) Labs Laboratory Tests Test 09/14/17 14:52 Urine Color LIGHT-RED Urine Turbidity HAZY Urine pH 5.5 Urine Specific [place] 1.012 Urine Protein 30 mg/dL Urine Glucose (UA) 300 mg/dL Urine Ketones TRACE mg/dL Urine Occult Blood LARGE Urine Nitrite NEG Urine Bilirubin NEG Urine Urobilinogen LESS THAN 2.0 MG/DL Urine Leukocyte Esterase TRACE Urine RBC /hpf Urine WBC 6 /hpf Urine Squamous Epithelial Cells 1 /hpf Urine Mucus FEW /lpf Microscopic Urinalysis Comment CULT NOT INDICATED MDM Medical Decision Making Medical Screen Exam Complete: Yes Emergency Medical Condition: Yes Differential Diagnosis Differential diagnosis including musculoskeletal, acute on chronic recurrent pain, nephrolithiasis, pyelonephritis, colitis, epididymitis, orchitis. Narrative Course 42-year-old male with recurrent left flank pain with radiation of the left groin left abdomen. I reviewed medical records and patient has multiple CT abdomen pelvis and workup which were negative except nonobstructive stones and hernia. Patient was offered Toradol IM and Norflex IM injection. Diagnosis Primary Impression: Left flank pain Patient Instructions: General Instructions Additional Instructions: Patient left before medication was given and prescription given. Disposition: 01 DISCHARGE HOME Condition: Stable Ceasar Puga MD September 14, 2017 16:55
== END 2017-09-14 16:57 | disposition home or self-care (01) ==
LOC: NEPD 14:44
DX: R10.9 Unspecified abdominal pain (principal); E11.9 Type 2 diabetes mellitus without complications; Z79.4 Long term (current) use of insulin
CPT/HCPCS: 81001; 99283

== ENCOUNTER 2017-10-11 22:15 | Inpatient (IN) | payer OTHER ==
[~2017-10-11 22:15] MED LIST changes: -TRAM50TA PO; -ZOFR4TAB3 SL
[2017-10-11 22:26] VITALS: BP 213/127; PULSE 98; RESP 22; TEMP 97.7; O2SAT 97
[2017-10-11] MEDS ORDERED: SODIUM CHLOR 0.9% 1000 ML INJ 1,000 ML IV SCH (22:46)
[2017-10-11] MEDS ORDERED: KETOROLAC TROMETHAMINE 30 MG/ML (IVP) VIAL IVP ONE (23:00)
[2017-10-11] MEDS ORDERED: MORPHINE SULFATE 4 MG/ML INJ IV PUSH ONE (23:00)
[2017-10-11] MEDS: SODIUM CHLORIDE 0.9% FLUSH 10 ML FLUSH IV FLUSH PRN (23:00)
[2017-10-11] MEDS ORDERED: ONDANSETRON ODT 4 MG TAB PO ONE (23:00)
[2017-10-11 23:07] LABS: AUTOMATED NEUTROPHIL # 4.7 TH/MM3 (1.8-7.7); BASOPHIL # 0.1 TH/MM3 (0-0.2); BASOPHIL % 0.9 % (0.0-2.0); EOSINOPHIL # 0.1 TH/MM3 (0-0.4); EOSINOPHIL % 1.2 % (0.0-4.0); HEMATOCRIT 41.5 % (39.0-51.0); HEMOGLOBIN 15.5 GM/DL (13.0-17.0); LYMPH % 29.9 % (9.0-44.0); LYMPHOCYTE # 2.3 TH/MM3 (1.0-4.8); MEAN CELL VOLUME 83.6 FL (80.0-100.0); MEAN CORPUSCULAR HEMOGLOBIN 31.2 PG (27.0-34.0); MEAN PLATELET VOLUME 8.3 FL (7.0-11.0); MONO % 7.9 % (0.0-8.0); MONOCYTE # 0.6 TH/MM3 (0-0.9); NEUT % 60.1 % (16.0-70.0); PLATELET COUNT 242 TH/MM3 (150-450); RED BLOOD COUNT 4.96 MIL/MM3 (4.50-5.90); RED CELL DISTRIBUTION WIDTH 13.3 % (11.6-17.2); WHITE BLOOD COUNT 7.8 TH/MM3 (4.0-11.0)
[2017-10-11] MEDS ORDERED: HYDROmorphone HCL PF 2 MG/ML VIAL IV PUSH ONE (23:15)
[2017-10-11 23:50] LABS: ALBUMIN 3.3 GM/DL (3.4-5.0); ALKALINE PHOSPHATASE 100 U/L (45-117); AST (GOT) 64 U/L (15-37); BICARBONATE 24.5 MEQ/L (21.0-32.0); BLOOD UREA NITROGEN 20 MG/DL (7-18); CHLORIDE 95 MEQ/L (98-107); CREATININE 1.43 MG/DL (0.60-1.30); GLOMERULAR FILTRATION RATE 54 ML/MIN (>89); TOTAL BILIRUBIN ADULT 0.8 MG/DL (0.2-1.0)
[2017-10-11 23:52] LABS: GLUCOSE,RANDOM 576 MG/DL (74-106)
[2017-10-11 23:54] LABS: MEAN CORPUSCULAR HGB CONC 37.4 % (32.0-36.0)
[2017-10-11 23:56] LABS: BILIRUBIN, URINE NEG (NEG); BLOOD, URINE LARGE (NEG); GLUCOSE,URINE >=500 mg/dL (NEG); KETONE, URINE TRACE mg/dL (NEG); MUCUS URINE FEW /lpf (OCC); NITRITE,URINE NEG (NEG); RENAL EPITHELIAL CELLS <1 /hpf; URINE COLOR Straw (YELLW/STRAW); URINE LEUKOCYTE ESTERASE NEG (NEG)
[2017-10-12] MEDS ORDERED: INSULIN HUMAN REGULAR 1,000 UNITS/10 ML VIAL IV PUSH ONE (00:15)
[2017-10-12] MEDS ORDERED: SODIUM CHLOR 0.9% 1000 ML INJ 1,000 ML IV ONE (00:15)
[2017-10-12 00:16] LABS: CALCIUM 8.1 MG/DL (8.5-10.1); TOTAL PROTEIN 7.5 GM/DL (6.4-8.2)
[2017-10-12 00:17] LABS: SODIUM (NA) 129 MEQ/L (136-145)
--- NOTE | 2017-10-12 00:17 | RADRPT ---
EXAM DATE: 10/12/2017 12:07 AM EDT AGE/SEX: 42 years / Male INDICATIONS: Left flank pain. CLINICAL DATA: This is the patient's initial encounter. Patient reports that signs and symptoms have been present for 1 day and indicates a pain score of 5/10. MEDICAL/SURGICAL HISTORY: Renal calculi. Inguinal hernia repair. RADIATION DOSE: 8.55 CTDI (mGy) COMPARISON: [facility] [place], CT ABDOMEN & PELVIS W/O CONTRAST, 09/11/2017. . TECHNIQUE: Multiple contiguous axial images were obtained through the abdomen. Images were obtained using multiple row detector helical technique. Using automated exposure control and adjustment of the mA and/or kV according to patient size, radiation dose was kept as low as reasonably achievable to o btain optimal diagnostic quality images. DICOM format image data is available electronically for rev iew and comparison. FINDINGS: Lower Lungs: The visualized lower lungs are clear. Liver: The liver has a homogeneous density without space-occupying lesion. There is no dilation of th e biliary tree. Spleen: Homogeneous density without enlargement. Pancreas: Unremarkable without mass or calcification. Kidneys: The left ureter is dilated to a small faint calcification at the left UVJ measuring 4 mm ac ross. There is hydronephrosis with a 5 mm proximal left ureteral calculus at the UPJ. Adrenal Glands: Unremarkable. Aorta: The aorta and proximal iliac vessels are grossly unremarkable without aneurysmal dilation. Bowel/Mesentery: The bowel loops are grossly unremarkable. The cecum and sigmoid colon have a normal configuration. Abdominal Wall: Prominent fat-containing inguinal hernia measuring 3.8 cm across Retroperitoneum: No evidence of adenopathy in the retrocrural, para-aortic, or deep pelvic regions. Bladder: Contours are smooth. Reproductive Organs: No abnormal masses or calcifications seen. Inguinal: Fat-containing left inguinal hernia measuring 4.8 cm across.. Bony Structures: Unremarkable. CONCLUSION: 1. There are 2 calcifications within the left ureter, one at the left UVJ, one at the UPJ. 2. Large left inguinal and umbilical hernias. Electronically signed by: Gal Sexton MD 10/12/2017 12:16 AM EDT
[2017-10-12 00:30] LABS: ALT (GPT) 38 U/L (12-78)
[2017-10-12] MEDS ORDERED: HYDROmorphone HCL PF 2 MG/ML VIAL IV PUSH ONE (01:30)
[2017-10-12 01:34] LABS: BANDS 6 % (0-6); BASOPHILS 1 % (0-2); METAMYELOCYTES 2 % (0-1); MONOCYTES 4 % (0-8); NEUTROPHIL # MANUAL DIFF 5.8 TH/MM3 (1.8-7.7); POLYS (SEG NEUTROPHILS) 66 % (16-70)
[2017-10-12 01:35] LABS: LYMPHOCYTES 19 % (9-44)
--- NOTE | 2017-10-12 01:50 | PD ---
HPI Chief Complaint: Flank/Kidney Pain Time Seen by Provider: 22:37 Travel History International Travel<30 days: No Contact w/Intl Traveler<30days: No Traveled to known affect area: No History of Present Illness HPI Patient is a 42-year-old male who comes in complaining of left flank pain. He has known kidney stones, and says he has been urinating blood for a while because he believes he has been passing multiple stones. However, this pain started today. He tried taking a Percocet at home without relief of his symptoms. He has had some nausea, but no vomiting. He denies fever chills. He says the pain radiates down into his groin. Severity is moderate. PFSH Past Medical History Hx Anticoagulant Therapy: No Arthritis: No Asthma: No Autoimmune Disease: No Anxiety: No Depression: No Heart Rhythm Problems: No Cancer: No Cardiovascular Problems: No High Cholesterol: No Chemotherapy: No Chest Pain: No Congestive Heart Failure: No COPD: No Cerebrovascular Accident: No Diabetes: Yes (INSULIN) Patient Takes Glucophage: No Diminished Hearing: No Endocrine: No Gastrointestinal Disorders: Yes (kidney stones, pancreatitis ) GERD: No Genitourinary: No Headaches: No Hepatitis: No Hiatal Hernia: No Heparin Induced Thrombocytopen: No Hypertension: Yes ( ) Immune Disorder: Yes Inguinal Hernia: Yes Implanted Vascular Access Dvce: No Kidney Stones: Yes Musculoskeletal: Yes (CHRONIC BACK PAIN, hip problems) Neurologic: Yes (neuropathy) Psychiatric: Yes (anxiety) Reproductive: No Respiratory: Yes (sleep apnea ) Immunizations Current: Yes Migraines: No Pancreatitis: Yes Radiation Therapy: No Renal Failure: No Seizures: No Shingles: Yes Sickle Cell Disease: No Sleep Apnea: Yes Thyroid Disease: No Ulcer: No Influenza Vaccination: No Past Surgical History Abdominal Surgery: Yes (HERNIA REPAIR x 4) AICD: No Arteriovenous Shunt: No Body Medical Devices: NONE Cardiac Surgery: No Ear Surgery: No Endocrine Surgery: No Eye Surgery: No Genitourinary Surgery: No Gynecologic Surgery: No Insulin Pump: No Joint Replacement: No Neurologic Surgery: Yes (spine surgery) Oral Surgery: No Pacemaker: No Thoracic Surgery: No Other Surgery: Yes (1 testical removed ) Social History Alcohol Use: No Tobacco Use: No Substance Use: No Allergies-Medications (Allergen,Severity, Reaction): Coded Allergies: diatrizoate meglumine (Verified Allergy, Mild, Rash, 5/22/18) gadobenic acid (Verified Allergy, Mild, Rash, 09/14/17) gadodiamide (Verified Allergy, Mild, Rash, 09/14/17) gadoteridol (Verified Allergy, Mild, Rash, 09/14/17) iodixanol (Verified Allergy, Mild, Rash, 09/14/17) iohexol (Verified Allergy, Mild, Rash, 09/14/17) Reported Meds & Prescriptions Reported Meds & Active Scripts Active Novolog Inj (Insulin Aspart) 1,000 Unit/10 Ml Vial 1-9 Units SQ ACHS sugars less than 70,(0)units; sugars 150-199,(1) unit; sugars 200-249,(3) units; sugars 250-299,(5) units; sugars 300-349,(7) units; sugars greater than 349,(9) units inform PCP if < 70 or >400. Reported Levemir Inj (Insulin Detemir) 1,000 unit/ 10 ML Vial 10 Units SQ HS Do not mix with any other Insulin. Review of Systems Except as stated in HPI: all other systems reviewed are Neg General / Constitutional: No: Fever, Chills HENT: No: Headaches, Lightheadedness Cardiovascular: No: Chest Pain or Discomfort Respiratory: No: Shortness of Breath Gastrointestinal: Positive: Nausea, Abdominal Pain, No: Vomiting Genitourinary: Positive: Hematuria, Flank Pain Skin: No Rash, No Change in Pigmentation Neurologic: No: Weakness, Dizziness Physical Exam Narrative GENERAL: Awake and alert, in moderate distress due to pain. SKIN: Focused skin assessment warm/dry. HEAD: Atraumatic. Normocephalic. EYES: Pupils equal and round. No scleral icterus. ENT: Mucous membranes pink and moist. NECK: Trachea midline. No JVD. CARDIOVASCULAR: Regular rate and rhythm. No murmur appreciated. RESPIRATORY: No accessory muscle use. Clear to auscultation. Breath sounds equal bilaterally. GASTROINTESTINAL: Abdomen soft, non-tender, nondistended. Left CVA tenderness. MUSCULOSKELETAL: No obvious deformities. No clubbing. No cyanosis. No edema. NEUROLOGICAL: Awake and alert. No obvious cranial nerve deficits. Motor grossly within normal limits. Normal speech. PSYCHIATRIC: Appropriate mood and affect; insight and judgment normal. Data Data Last Documented VS Vital Signs Date Time Temp Pulse Resp B/P (MAP) Pulse Ox O2 Delivery O2 Flow Rate FiO2 10/11/17 22:26 97.7 98 22 213/127 (155) 97 Orders Orders Complete Blood Count With Diff (10/11/17 22:46) Comprehensive Metabolic Panel (10/11/17 22:46) Urinalysis - C+S If Indicated (10/11/17 22:46) Ct Abd/Pel W/O Iv Contrast (10/11/17 22:46) Iv Access Insert/Monitor (10/11/17 22:46) Ecg Monitoring (10/11/17 22:46) Oximetry (10/11/17 22:46) Morphine Inj (Morphine Inj) (10/11/17 23:00) Sodium Chlor 0.9% 1000 Ml Inj (Ns 1000 M (10/11/17 22:46) Sodium Chloride 0.9% Flush (Ns Flush) (10/11/17 23:00) Ketorolac Inj (Toradol Inj) (10/11/17 23:00) Ondansetron Odt (Zofran Odt) (10/11/17 23:00) Hydromorphone Pf Inj (Dilaudid Pf Inj) (10/11/17 23:15) Sodium Chlor 0.9% 1000 Ml Inj (Ns 1000 M (10/12/17 00:15) Insulin Human Regular Inj (Novolin R Inj (10/12/17 00:15) Hydromorphone Pf Inj (Dilaudid Pf Inj) (10/12/17 01:30) Labs Laboratory Tests Test 10/11/17 22:47 10/11/17 23:30 White Blood Count 7.8 TH/MM3 Red Blood Count 4.96 MIL/MM3 Hemoglobin 15.5 GM/DL Hematocrit 41.5 % Mean Corpuscular Volume 83.6 FL Mean Corpuscular Hemoglobin 31.2 PG Mean Corpuscular Hemoglobin Concent 37.4 % Red Cell Distribution Width 13.3 % Platelet Count 242 TH/MM3 Mean Platelet Volume 8.3 FL Neutrophils (%) (Auto) 60.1 % Lymphocytes (%) (Auto) 29.9 % Monocytes (%) (Auto) 7.9 % Eosinophils (%) (Auto) 1.2 % Basophils (%) (Auto) 0.9 % Neutrophils # (Auto) 4.7 TH/MM3 Lymphocytes # (Auto) 2.3 TH/MM3 Monocytes # (Auto) 0.6 TH/MM3 Eosinophils # (Auto) 0.1 TH/MM3 Basophils # (Auto) 0.1 TH/MM3 CBC Comment AUTO DIFF Differential Total Cells Counted 100 Neutrophils % (Manual) 66 % Band Neutrophils % 6 % Lymphocytes % 19 % Monocytes % 4 % Eosinophils % 2 % Basophils % 1 % Neutrophils # (Manual) 5.8 TH/MM3 Metamyelocytes 2 % Differential Comment FINAL DIFF MANUAL Atypical Lymphocytes % Platelet Estimate NORMAL Platelet Morphology Comment NORMAL Blood Urea Nitrogen 20 MG/DL Creatinine 1.43 MG/DL Random Glucose 576 MG/DL Total Protein 7.5 GM/DL Albumin 3.3 GM/DL Calcium Level 8.1 MG/DL Alkaline Phosphatase 100 U/L Aspartate Amino Transf (AST/SGOT) 64 U/L Alanine Aminotransferase (ALT/SGPT) 38 U/L Total Bilirubin 0.8 MG/DL Sodium Level 129 MEQ/L Potassium Level 4.7 MEQ/L Chloride Level 95 MEQ/L Carbon Dioxide Level 24.5 MEQ/L Anion Gap 10 MEQ/L Estimat Glomerular Filtration Rate 54 ML/MIN Urine Color Straw Urine Turbidity CLEAR Urine pH 5.0 Urine Specific [place] 1.030 Urine Protein NEG mg/dL Urine Glucose (UA) >=500 mg/dL Urine Ketones TRACE mg/dL Urine Occult Blood LARGE Urine Nitrite NEG Urine Bilirubin NEG Urine Urobilinogen LESS THAN 2 mg/dL Urine Leukocyte Esterase NEG Urine RBC /hpf Urine Renal Epithelial Cells <1 /hpf Urine Mucus FEW /lpf Microscopic Urinalysis Comment CULT NOT INDICATED MDM Medical Decision Making Medical Screen Exam Complete: Yes Emergency Medical Condition: Yes Medical Record Reviewed: Yes Differential Diagnosis UTI versus renal stone versus pyelonephritis versus dehydration versus hyperglycemia Narrative Course Patient is a 42-year-old male who comes in complaining of flank pain. Exam shows left CVA tenderness. IV established, labs sent. Labs show a glucose of 576. Creatinine is 1.43, it was 1.12 on September 11. Patient given IV fluids, morphine, Toradol. CT abdomen and pelvis performed shows 2 renal stones within the left ureter. Last 24 hours Impressions Abdomen/Pelvis CT 10/11/17 2046 Signed Impressions: CONCLUSION: 1. There are 2 calcifications within the left ureter, one at the left UVJ, one at the UPJ. 2. Large left inguinal and umbilical hernias. Patient continued to complain of pain. He was given 2 additional doses of Dilaudid. Pain is uncontrollable. He will be admitted for further management. His urologist is Dr. Alvarez. Diagnosis Primary Impression: Renal stones Additional Impression: Hyperglycemia Admitting Information Admitting Physician Requests: Admit Bhumika Mason MD Oct 12, 2017 01:50
[2017-10-12] MEDS ORDERED: MAGNESIUM HYDROXIDE SUSP 30 ML CUP PO PRN (02:45)
[2017-10-12] MEDS ORDERED: LACTULOSE SYRUP 20 GM/30 ML CUP PO PRN (02:45)
[2017-10-12] MEDS ORDERED: NALOXONE HCL 0.4 MG/ML AMP IV PUSH PRN (02:45)
[2017-10-12] MEDS ORDERED: BISACODYL 10 MG SUPP RECTAL PRN (02:45)
[2017-10-12] MEDS ORDERED: GLUCAGON 1 MG/ML VIAL OTHER PRN (02:45)
[2017-10-12] MEDS ORDERED: SODIUM CHLORIDE 0.9% FLUSH 10 ML FLUSH IV FLUSH PRN (02:45)
[2017-10-12] MEDS ORDERED: SENNOSIDES 8.6 MG TAB PO PRN (02:45)
[2017-10-12] MEDS ORDERED: ACETAMINOPHEN 325 MG TAB PO PRN (02:45)
[2017-10-12] MEDS ORDERED: DEXTROSE 50% IN WATER 50 ML VIAL(D50) IV PUSH PRN (02:45)
[2017-10-12] MEDS ORDERED: ONDANSETRON ODT 4 MG TAB PO PRN (03:00)
--- NOTE | 2017-10-12 03:32 | HHI.HP ---
[facility] Rio Sky MD (Paul) Admission Diagnosis renal stone, hyperglycemia Diagnoses: Travel History International Travel<30 Days: No Contact w/Intl Traveler <30 Da: No Traveled to Known Affected Are: No History of Present Illness 42-year-old male with a past medical history significant for diabetes mellitus and multiple kidney stones presents to the emergency department for evaluation of left-sided flank pain that began yesterday. The patient reports severe, left -sided flank pain that radiates to his left testicle. He denies any fever/ chills. No nausea/vomiting/diarrhea. No abdominal pain. No chest pain or shortness of breath. Review of Systems Except as stated in HPI: all other systems reviewed are Neg Past Family Social History Past Medical History Diabetes mellitus History of nephrolithiasis Past Surgical History Hernia repair Left orchiectomy Reported Medications Reported Meds & Active Scripts Active Novolog Inj (Insulin Aspart) 1,000 Unit/10 Ml Vial 1-9 Units SQ ACHS sugars less than 70,(0)units; sugars 150-199,(1) unit; sugars 200-249,(3) units; sugars 250-299,(5) units; sugars 300-349,(7) units; sugars greater than 349,(9) units inform PCP if < 70 or >400. Reported Levemir Inj (Insulin Detemir) 1,000 unit/ 10 ML Vial 10 Units SQ HS Do not mix with any other Insulin. Allergies: Coded Allergies: diatrizoate meglumine (Verified Allergy, Mild, Rash, 09/14/17) gadobenic acid (Verified Allergy, Mild, Rash, 09/14/17) gadodiamide (Verified Allergy, Mild, Rash, 09/14/17) gadoteridol (Verified Allergy, Mild, Rash, 09/14/17) iodixanol (Verified Allergy, Mild, Rash, 09/14/17) iohexol (Verified Allergy, Mild, Rash, 09/14/17) Family History Father with diabetes mellitus Social History Negative for alcohol, tobacco and illicit drugs Physical Exam Vital Signs Vital Signs Date Time Temp Pulse Resp B/P (MAP) Pulse Ox O2 Delivery O2 Flow Rate FiO2 10/11/17 22:26 97.7 98 22 213/127 (155) 97 Physical Exam GENERAL: male sitting up in the chair SKIN: No rashes, ecchymoses or lesions. Cool and dry. HEAD: Atraumatic. Normocephalic. No temporal or scalp tenderness. EYES: Pupils equal round and reactive. Extraocular motions intact. No scleral icterus. No injection or drainage. ENT: Nose without bleeding, purulent drainage or septal hematoma. Throat without erythema, tonsillar hypertrophy or exudate. Uvula midline. Airway patent. NECK: Trachea midline. No JVD or lymphadenopathy. Supple, nontender, no meningeal signs. CARDIOVASCULAR: Regular rate and rhythm without murmurs, gallops, or rubs. RESPIRATORY: Clear to auscultation. Breath sounds equal bilaterally. No wheezes , rales, or rhonchi. GASTROINTESTINAL: Abdomen soft, non-tender, nondistended. No hepato-splenomegaly , or palpable masses. No guarding. : Positive left-sided CVA tenderness. MUSCULOSKELETAL: Extremities without clubbing, cyanosis, or edema. No joint tenderness, effusion, or edema noted. No calf tenderness. NEUROLOGICAL: Awake and alert. Cranial nerves II through XII intact. Motor and sensory grossly within normal limits. Normal speech. Laboratory Laboratory Tests Test 10/11/17 22:47 10/11/17 23:30 White Blood Count 7.8 Red Blood Count 4.96 Hemoglobin 15.5 Hematocrit 41.5 Mean Corpuscular Volume 83.6 Mean Corpuscular Hemoglobin 31.2 Mean Corpuscular Hemoglobin Concent 37.4 Red Cell Distribution Width 13.3 Platelet Count 242 Mean Platelet Volume 8.3 Neutrophils (%) (Auto) 60.1 Lymphocytes (%) (Auto) 29.9 Monocytes (%) (Auto) 7.9 Eosinophils (%) (Auto) 1.2 Basophils (%) (Auto) 0.9 Neutrophils # (Auto) 4.7 Lymphocytes # (Auto) 2.3 Monocytes # (Auto) 0.6 Eosinophils # (Auto) 0.1 Basophils # (Auto) 0.1 CBC Comment AUTO DIFF Differential Total Cells Counted 100 Neutrophils % (Manual) 66 Band Neutrophils % 6 Lymphocytes % 19 Monocytes % 4 Eosinophils % 2 Basophils % 1 Neutrophils # (Manual) 5.8 Metamyelocytes 2 Differential Comment FINAL DIFF MANUAL Atypical Lymphocytes Platelet Estimate NORMAL Platelet Morphology Comment NORMAL Blood Urea Nitrogen 20 Creatinine 1.43 Random Glucose 576 Total Protein 7.5 Albumin 3.3 Calcium Level 8.1 Alkaline Phosphatase 100 Aspartate Amino Transf (AST/SGOT) 64 Alanine Aminotransferase (ALT/SGPT) 38 Total Bilirubin 0.8 Sodium Level 129 Potassium Level 4.7 Chloride Level 95 Carbon Dioxide Level 24.5 Anion Gap 10 Estimat Glomerular Filtration Rate 54 Urine Color Straw Urine Turbidity CLEAR Urine pH 5.0 Urine Specific [place] 1.030 Urine Protein NEG Urine Glucose (UA) >=500 Urine Ketones TRACE Urine Occult Blood LARGE Urine Nitrite NEG Urine Bilirubin NEG Urine Urobilinogen LESS THAN 2 Urine Leukocyte Esterase NEG Urine RBC Urine Renal Epithelial Cells <1 Urine Mucus FEW Microscopic Urinalysis Comment CULT NOT INDICATED Result Diagram: 10/11/17224610/11/172246 Caprini VTE Risk Assessment Caprini VTE Risk Assessment: No/Low Risk (score <= 1) Caprini Risk Assessment Model Point Value = 1 Point Value = 2 Point Value = 3 Point Value = 5 Age 41-60 Minor surgery BMI > 25 kg/m2 Swollen legs Varicose veins or History of unexplained or recurrent spontaneous Oral contraceptives or hormone replacement Sepsis (< 1 month) Serious lung disease, including pneumonia (< 1 month) Abnormal pulmonary function Acute myocardial infarction Congestive heart failure (< 1 month) History of inflammatory bowel disease Medical patient at bed rest Age 61-74 Arthroscopic surgery Major open surgery (> 45 min) Laparoscopic surgery (> 45 min) Malignancy Confined to bed (> 72 hours) Immobilizing plaster cast Central venous access Age >= 75 History of VTE Family history of VTE Factor V Leiden Prothrombin [id number] Lupus anticoagulant Anticardiolipin antibodies Elevated serum homocysteine Heparin-induced thrombocytopenia Other congenital or acquired thrombophilia Stroke (< 1 month) Elective arthroplasty Hip, pelvis, or leg fracture Acute spinal cord injury (< 1 month) Prophylaxis Regimen Total Risk Factor Score Risk Level Prophylaxis Regimen 0-1 Low Early ambulation 2 Moderate Order ONE of the following: *Sequential Compression Device (SCD) *Heparin 5000 units SQ BID 3-4 Higher Order ONE of the following medications: *Heparin 5000 units SQ TID *Enoxaparin/Lovenox 40 mg SQ daily (WT < 150 kg, CrCl > 30 mL/min) *Enoxaparin/Lovenox 30 mg SQ daily (WT < 150 kg, CrCl > 10-29 mL/min) *Enoxaparin/Lovenox 30 mg SQ BID (WT < 150 kg, CrCl > 30 mL/min) AND/OR *Sequential Compression Device (SCD) 5 or more Highest Order ONE of the following medications: *Heparin 5000 units SQ TID (Preferred with Epidurals) *Enoxaparin/Lovenox 40 mg SQ daily (WT < 150 kg, CrCl > 30 mL/min) *Enoxaparin/Lovenox 30 mg SQ daily (WT < 150 kg, CrCl > 10-29 mL/min) *Enoxaparin/Lovenox 30 mg SQ BID (WT < 150 kg, CrCl > 30 mL/min) AND *Sequential Compression Device (SCD) Assessment and Plan Assessment and Plan Assessment/plan: 1. Ureteral stones CT of the abdomen/pelvis shows 2 stones within the left ureter at the UVJ and UPJ with hydronephrosis UA negative for UTI Urology consulted, appreciate assistance 2. SHAHRZAD Likely secondary to above Monitor renal function 3. Diabetes mellitus/hyperglycemia Status post IV insulin given in the emergency department with good response Sliding-scale insulin Holding home Levemir as patient n.p.o. FEN N.p.o. Electrolytes: Monitor and replete as needed NS at 100 cc/hour Physician Certification 2 Midnight Certification Type: Admission for Inpatient Services Order for Inpatient Services The services are ordered in accordance with Medicare regulations or non- Medicare payer requirements, as applicable. In the case of services not specified as inpatient-only, they are appropriately provided as inpatient services in accordance with the 2-midnight benchmark. Estimated LOS (days): 2 2 days is the estimated time the patient will need to remain in the hospital, assuming treatment plan goals are met and no additional complications. Post-Hospital Plan: Not yet determined Ethel Cavazos MD Oct 12, 2017 03:32
[2017-10-12] MEDS: HYDROmorphone HCL PF 2 MG/ML VIAL IV PRN ×4 (03:41→22:28)
[2017-10-12 05:02] VITALS: BP 177/94; PULSE 77; RESP 16; O2SAT 97
[2017-10-12 05:05] LABS: AUTOMATED NEUTROPHIL # 5.2 TH/MM3 (1.8-7.7); BASOPHIL # 0.1 TH/MM3 (0-0.2); BASOPHIL % 0.7 % (0.0-2.0); BICARBONATE 21.8 MEQ/L (21.0-32.0); CREATININE 1.1 MG/DL (0.60-1.30); EOSINOPHIL # 0.1 TH/MM3 (0-0.4); EOSINOPHIL % 1.1 % (0.0-4.0); HEMATOCRIT 40.8 % (39.0-51.0); HEMOGLOBIN 14.4 GM/DL (13.0-17.0); LYMPH % 18.8 % (9.0-44.0); LYMPHOCYTE # 1.4 TH/MM3 (1.0-4.8); MEAN CELL VOLUME 83.4 FL (80.0-100.0); MEAN CORPUSCULAR HEMOGLOBIN 29.3 PG (27.0-34.0); MEAN CORPUSCULAR HGB CONC 35.2 % (32.0-36.0); MEAN PLATELET VOLUME 8.1 FL (7.0-11.0); MONO % 8.3 % (0.0-8.0); MONOCYTE # 0.6 TH/MM3 (0-0.9); NEUT % 71.1 % (16.0-70.0); PLATELET COUNT 201 TH/MM3 (150-450); RED CELL DISTRIBUTION WIDTH 12.9 % (11.6-17.2); WHITE BLOOD COUNT 7.3 TH/MM3 (4.0-11.0)
[2017-10-12] MEDS: SODIUM CHLOR 0.9% 1000 ML INJ 1,000 ML IV SCH ×3 (05:05→22:44)
[2017-10-12] MEDS ORDERED: HYDROmorphone HCL PF 2 MG/ML VIAL IV ONE (06:15)
[2017-10-12 08:33] VITALS: BP 179/108; PULSE 84; RESP 21; TEMP 98.2; O2SAT 98
[2017-10-12] MEDS: DOCUSATE SODIUM 50 MG/SENNA 8.6 MG TAB PO SCH ×2 (08:39→22:28)
[2017-10-12] MEDS: SODIUM CHLORIDE 0.9% FLUSH 10 ML FLUSH IV FLUSH SCH ×2 (08:40→22:28)
--- NOTE | 2017-10-12 09:07 | MB ---
cc: SaturninoPablon Emma DO DATE: 10/05/2017 HISTORY OF PRESENT ILLNESS: This is a 42-year-old male who complains of left-sided flank pain. Upon presentation to the emergency room, he notes some nausea, but denies any vomiting. He denies any fever or chills. He does have a history of nephrolithiasis. The patient underwent a CT scan in the emergency room showing 2 calcifications within the left ureter, one at the left UVJ and 1 at the UPJ with mild to moderate hydronephrosis. PAST MEDICAL HISTORY: Includes nephrolithiasis, hypertension, chronic back pain, anxiety, sleep apnea, pancreatitis, diabetes. PAST SURGICAL HISTORY: Noted for hernia repair x4, spine surgery with an orchiectomy in the past. ALLERGIES: MULTIPLE. Please refer to the chart. MEDICATIONS: Please refer to the chart. FAMILY HISTORY: Notes a history of stones. SOCIAL HISTORY: Denies smoking, drinking or using drugs. REVIEW OF SYSTEMS: Left-sided flank pain with some nausea. Denies headaches, lightheadedness. No chest pain at present. No shortness of breath. Denies any rashes, gait disturbances or bleeding disorders. Remaining review of systems were reviewed and were negative. PHYSICAL EXAMINATION: VITAL SIGNS: Temperature 97.7, heart rate 98, respiratory rate 22, blood pressure is 213/127, 97% on room air. GENERAL: A well-developed, well-nourished, 42-year-old male in mild distress. HEENT: Normocephalic, atraumatic. Pupils equal, round, regular, reactive to light. Extraocular movements are intact. NECK: Supple. HEART: Regular rate and rhythm. LUNGS: Clear. ABDOMEN: Soft. There is some left-sided tenderness noted. There is left CVA tenderness noted. GENITOURINARY: Normal phallus, absent left testicle. EXTREMITIES: No cyanosis, clubbing, or edema. LABORATORY DATA: White count 7.3, hemoglobin 14.4, hematocrit 40.8, platelet count of 201. Sodium 134, potassium 4.5, chloride 102, CO2 21.8, BUN 21, creatinine 1.1, glucose 371. IMAGING STUDIES: Again, imaging demonstrates 2 stones within the left ureter, 1 at the UVJ and 1 at the UPJ, with mild to moderate hydronephrosis. ASSESSMENT: A 42-year-old male with history of nephrolithiasis with 2 stones causing obstruction in the left ureter. PLAN: We will plan for cystoscopy and left double-J stent insertion. Continue n.p.o. Risks and benefits were discussed and the patient is willing to proceed. Thank you for the consultation and allowing me to participate in the care of this patient. DO PRANAY Beach/RENEE , 08:46 AM , 09:06 AM
[2017-10-12] MEDS: INSULIN ASPART SUPPLEMENTAL SCALE SQ SCH ×4 (09:28→22:41)
[2017-10-12] MEDS ORDERED: ROCURONIUM INJ 50 MG/5 ML SYRINGE IV PUSH ONE (12:00)
[2017-10-12] MEDS ORDERED: PROPOFOL 200 MG/20 ML AMP IV ONE (12:00)
[2017-10-12] MEDS ORDERED: ceFAZolin INJ 1,000 MG VIAL IV ONE ×2 (12:00→17:58)
[2017-10-12] MEDS ORDERED: LIDOCAINE HCL 1% PF 5 ML SYRINGE OTHER ONE (12:00)
[2017-10-12 12:15] VITALS: BP 176/108; PULSE 83; RESP 22; TEMP 98.3; O2SAT 96
[2017-10-12 12:54] VITALS: BP 176/108; PULSE 83; RESP 22; TEMP 98.3; O2SAT 96
[2017-10-12] MEDS ORDERED: cloNIDine HCL 0.1 MG TAB PO PRN (14:30)
[2017-10-12] MEDS: amLODIPine BESYLATE 5 MG TAB PO SCH (15:13)
[2017-10-12 16:58] VITALS: BP 139/82; PULSE 67; RESP 20; TEMP 98.7; O2SAT 95
[2017-10-12] MEDS ORDERED: SUGAMMADEX SODIUM 200 MG/2 ML VIAL IV PUSH ONE (18:09)
[2017-10-12] MEDS ORDERED: FUROSEMIDE 40 MG/4 ML VIAL ONE (18:10)
--- NOTE | 2017-10-12 18:47 | PD.OP ---
Operative Report Date of Surgery: Oct 12, 2017 Preoperative Diagnosis: Left ureteral stone and left renal stone Postoperative Diagnosis: Same Procedure: Cystoscopy, left ureteroscopy, laser lithotripsy, stone extraction, left retrograde pyelogram with left double-J stent insertion Anesthesia: STEPHANYA Surgeon: Arnel Matamoros Uniformer(s): None Resident Surgeon: None Operation and Findings: 42-year-old male presented to emergency room with left-sided flank pain. CT scan demonstrated a left mid ureteral stone and a left UPJ stone. Decision was made to bring the patient to the operating room to undergo cystoscopy with left ureteroscopy and possible laser lithotripsy with stone extraction and stent insertion. Risk and benefits were discussed preoperatively the patient is willing to proceed. Patient brought the operating room and identified by myself as Trey Gaviria. He was placed in the dorsal lithotomy position, prepped and draped in sterile fashion, received preprocedure antibiotics and general endotracheal tube anesthesia was administered. 22 Bulgarian cystoscope was inserted bladder miranda cystoscopy did not reveal any abnormalities. The scope was then removed and decision made then to pass the rigid ureteroscope up into the left ureter and within the mid ureter a stone was identified. Using a 200 m laser fiber with a setting of 10 and 1000 stone was then fragmented. Using the nitinol basket the stone fragments were then retrieved. A retrograde pyelogram was then performed demonstrating a stone in the area of the UPJ region. A 0.35 sensor wire was then passed through the ureteroscope up into the kidney. And the scope was then removed. The cystoscope was then backloaded over a wire and then a 6 Bulgarian 22 cm stent was placed with a good curl in the pelvis and in the bladder. The bladder was evacuated and he was awoken and transferred to the recovery room in stable condition. The stone was sent for analysis. He will follow up in the office in approximately 2 weeks to be scheduled for left extracorporeal shockwave lithotripsy to treat his proximal UPJ stone.. He tolerated the procedure well. Arnel Matamoros DO Oct 12, 2017 18:47
[2017-10-12] MEDS ORDERED: MIDAZOLAM HCL 2 MG/2 ML VIAL ONE (18:59)
[2017-10-12] MEDS ORDERED: *morphine SULFATE 8 MG/ML PERIprocedure ONLY ONE (19:00)
[2017-10-12] MEDS ORDERED: *morphine SULFATE 4 MG/ML PERIprocedure ONLY ONE (19:24)
[2017-10-12 20:07] VITALS: BP 142/88; PULSE 78; RESP 18; TEMP 98.6; O2SAT 94
[2017-10-12] MEDS ORDERED: DO NOT ADM ANY ANTICOAGULANT DRUGS PRN (20:15)
--- NOTE | 2017-10-12 20:51 | RADRPT ---
EXAM DATE: 10/12/2017 8:44 PM EDT AGE/SEX: 42 years / Male INDICATIONS: Lithotripsy with stent placement. CLINICAL DATA: This is the patient's initial encounter. Patient reports that signs and symptoms have been present for 1 day and indicates a pain score of Nonresponsive. MEDICAL/SURGICAL HISTORY: Non-responsive. Non-responsive. COMPARISON: No prior exams available for comparison. FINDINGS: Single fluoroscopic image of the left upper quadrant. There is a left ureteral stent in place. Retrog rade opacification of the left renal pelvis and calyces demonstrates no focal filling defects without significant hydronephrosis. CONCLUSION: 1. Retrograde left pyelogram demonstrates no focal filling defects or significant hydronephrosis. 2. Proximal left ureteral catheter tip in the central renal pelvis. Electronically signed by: Pan Toussaint MD 10/12/2017 8:50 PM EDT
[2017-10-13 00:07] VITALS: BP 118/76; PULSE 84; RESP 18; TEMP 98.4; O2SAT 98
[2017-10-13] MEDS: HYDROmorphone HCL PF 2 MG/ML VIAL IV PRN ×3 (02:33→10:06)
[2017-10-13] MEDS: SODIUM CHLORIDE 0.9% FLUSH 10 ML FLUSH IV FLUSH PRN ×2 (02:34→06:46)
[2017-10-13 03:15] VITALS: BP 154/92; PULSE 82; RESP 17; TEMP 98.5; O2SAT 95
[2017-10-13] MEDS: amLODIPine BESYLATE 5 MG TAB PO SCH (08:32)
[2017-10-13] MEDS: SODIUM CHLORIDE 0.9% FLUSH 10 ML FLUSH IV FLUSH SCH (08:32)
[2017-10-13] MEDS: DOCUSATE SODIUM 50 MG/SENNA 8.6 MG TAB PO SCH (08:33)
[2017-10-13] MEDS: SODIUM CHLOR 0.9% 1000 ML INJ 1,000 ML IV SCH (08:33)
[2017-10-13 08:44] VITALS: BP 163/98; PULSE 82; RESP 17; TEMP 98.5; O2SAT 97
[2017-10-13] MEDS: INSULIN ASPART SUPPLEMENTAL SCALE SQ SCH ×2 (09:09→13:08)
[2017-10-13] MEDS ORDERED: AMLO5 PO (11:34)
--- NOTE | 2017-10-13 11:35 | HHI.DCPOC ---
Discharge Care Plan Diagnosis: (1) Hydronephrosis (2) Renal stones Goals to Promote Your Health * To prevent worsening of your condition and complications * To maintain your health at the optimal level Directions to Meet Your Goals Take your medications as prescribed Follow your dietary instruction Follow activity as directed Keep your appointments as scheduled Take your immunizations and boosters as scheduled If your symptoms worsen call your PCP, if no PCP go to Urgent Care Center or Emergency Room Smoking is Dangerous to Your Health. Avoid second hand smoke Call the 24-hour hour crisis hotline for domestic abuse at Cesar Peña MD Oct 13, 2017 11:35
[2017-10-13] MEDS ORDERED: ACETAMINOPHEN/HYDROcodone 325 MG/7.5 MG TAB PO PRN (11:45)
[2017-10-13] MEDS ORDERED: KETOROLAC TROMETHAMINE 30 MG/ML (IVP) VIAL IV PUSH PRN (11:45)
[2017-10-13 12:05] VITALS: BP 152/92; PULSE 78; RESP 17; TEMP 98.4; O2SAT 98
[2017-10-13] MEDS ORDERED: HYDR-3516 PO (14:12)
--- NOTE | 2017-10-13 14:14 | HHI.PR ---
Subjective Remarks Patient says pain is much improved. Objective Vital Signs Date Time Temp Pulse Resp B/P (MAP) Pulse Ox O2 Delivery O2 Flow Rate FiO2 10/13/17 12:05 98.4 78 17 152/92 (112) 98 10/13/17 11:32 20 10/13/17 08:44 98.5 82 17 163/98 (119) 97 10/13/17 03:15 98.5 82 17 154/92 (112) 95 10/13/17 00:07 98.4 84 18 118/76 (90) 98 10/12/17 20:07 98.6 78 18 142/88 (106) 94 10/12/17 19:15 87 21 124/65 (84) 98 Room Air 10/12/17 19:00 82 16 136/76 (96) 98 Room Air 10/12/17 18:50 98.3 90 20 150/92 (111) 98 Room Air 10/12/17 16:58 98.7 67 20 139/82 (101) 95 10/12/17 16:58 98.7 67 20 139/82 (101) 95 I/O 10/12/17 10/12/17 10/12/17 10/13/17 10/13/17 10/13/17 07:00 15:00 23:00 07:00 15:00 23:00 Intake Total 2000 ml 400 ml Output Total 1600 ml 600 ml Balance 2000 ml -1200 ml -600 ml Intake IV Total 2000 ml 400 ml Output Urine Total 1600 ml 600 ml # Voids 1 Result Diagram: 10/12/17 0418 10/12/17 0418 Objective Remarks Sitting up in bed, no acute distress, unlabored breathing A/P Assessment and Plan Status post right ureteral stent placement with stone extraction; plan to return to urology outpatient for stone lithotripsy UPJ stone. Cesar Peña MD Oct 13, 2017 14:14
== END 2017-10-13 15:11 | disposition home or self-care (01) | DRG 669 ==
LOC: NEPC 22:15 → NEDA 10-12 02:08 → NEPGCP 10-12 06:34
PROVIDERS: ADMIT Hospitalist; ATTEND Hospitalist
PROC: 0T778DZ Dilation of Left Ureter with Intraluminal Device, Via Natural or Artificial Opening Endoscopic (ICD-10-PCS; 2017-10-12)
PROC: BT1F1ZZ Fluoroscopy of Left Kidney, Ureter and Bladder using Low Osmolar Contrast (ICD-10-PCS; 2017-10-12)
PROC: 0TC78ZZ Extirpation of Matter from Left Ureter, Via Natural or Artificial Opening Endoscopic (ICD-10-PCS; principal; 2017-10-12 17:45)
DX: N13.2 Hydronephrosis with renal and ureteral calculous obstruction (principal); N17.9 Acute kidney failure, unspecified; E11.40 Type 2 diabetes mellitus with diabetic neuropathy, unspecified; E11.65 Type 2 diabetes mellitus with hyperglycemia; I10 Essential (primary) hypertension; F41.9 Anxiety disorder, unspecified; G47.30 Sleep apnea, unspecified; Z83.3 Family history of diabetes mellitus; Z87.442 Personal history of urinary calculi; Z79.4 Long term (current) use of insulin
CPT/HCPCS: 74018; 74176; 74420; 76000; 80048; 80053; 81001; 82365; 82370; 82948; 85007; 85025; 85027; 88300; C1769; C2617; J0690; J1170; J1815; J1885; J1940; J2250; J2270; J3010; J7030